=== PATIENT | male | born 1965 | race Caucasian/White ===

== ENCOUNTER → 2020-08-12 07:33 | Outpatient (CLI) | payer OTHER, SELFPAY ==
[2020-08-12] MEDS: COVID-19 VACC, Ad26(JANSSEN)/PF 0.5 ML IM (07:42)
== END ==
PROVIDERS: Visit Provider Internal Medicine
DX: Z23 Encounter for immunization (principal)
CPT/HCPCS: 0031A; 91303

== ENCOUNTER → 2020-12-15 14:21 | Outpatient (CLI) | payer OTHER, SELFPAY ==
--- NOTE | 2020-12-15 14:25 | DI.RAD.S_ITS ---
PROCEDURE: XR KNEE RT 3V INDICATIONS: right knee pain, worsening, chronic overuse at work TECHNIQUE: 3 views of the knee were acquired. COMPARISON: Knee radiographs 09/23/2014. FINDINGS: Bones: No fractures or dislocations. No suspicious bony lesions. Soft tissues: No joint effusion. No suspicious soft tissue calcifications. IMPRESSION: No acute osseous abnormality. Dictated by: Uriel Chase M.D. on 12/15/2020 at 14:48 Approved by: Uriel Chase M.D. on 12/15/2020 at 14:48
== END ==
PROVIDERS: Referring Provider Student in an Organized Health Care Education/Training Program; Visit Provider Student in an Organized Health Care Education/Training Program
DX: M25.561 Pain in right knee (principal); Y99.0 Civilian activity done for income or pay
CPT/HCPCS: 73562

== ENCOUNTER → 2022-03-09 10:26 | Outpatient (CLI) | payer OTHER, SELFPAY ==
[2022-03-09 11:54] LABS: Add Manual Diff / Slide Review NO; Basophils Absolute Auto 0 /uL (0-100); Basophils Percent Auto 0.2 % (0-2); Eosinophils Absolute Auto 100 /uL (0-450); Eosinophils Percent Auto 0.9 % (2-4); Hemoglobin 14.2 g/dL (13.5-17.5); Lymphocytes Absolute Auto 1900 /uL (1100-4500); Lymphocytes Percent Auto 18.7 % (25-40); Mean Corpuscular HGB Conc 33.8 % (30-36); Mean Corpuscular Hemoglobin 28.8 PG (26-34); Mean Corpuscular Volume 85.2 fL (80-100); Monocytes Absolute Auto 600 /uL (0-900); Monocytes Percent Auto 6.4 % (3-14); Neutrophils Absolute Auto 7300 /uL (1500-7000); Neutrophils Percent Auto 73.8 % (50-75); Platelet Count 273 X10^3/uL (150-400); Red Blood Cell Count 4.92 X10^6/uL (4.5-5.9); Red Cell Distribution Width 13.8 % (11.6-14.8)
[2022-03-09 12:12] LABS: Alanine Aminotransferase 16 IU/L (<50); Albumin 4.2 g/dL (3.5-5.0); Albumin Globulin Ratio 1.2 (1.0-2.8); Alkaline Phosphatase 79 U/L (38-126); Aspartate Aminotransferase 21 IU/L (17-59); BUN Creatinine Ratio 25.4 (6-22); Bilirubin Total 0.4 mg/dL (0.2-1.3); Blood Urea Nitrogen 18 mg/dL (9-20); Calcium 9.3 mg/dL (8.4-10.2); Carbon Dioxide 24 mmol/L (22-32); Chloride 102 mmol/L (98-107); Cholesterol 194 mg/dL (140-199); Estimated Glomerular Filt Rate > 60 mL/min (>60); Globulin 3.6 g/dL (1.7-4.1); Glucose 114 mg/dL (70-100); HDL Cholesterol 41 mg/dL (40-60); HEMOLYSIS < 15 (0-50); LDL Cholesterol Calculated 117 mg/dL (<100); Potassium 4.1 mmol/L (3.4-5.1); Sodium 139 mmol/L (137-145); Total Protein 7.8 g/dL (6.3-8.2); Triglycerides 178 mg/dL (35-150)
[2022-03-09 12:37] LABS: Prostate Specific Antigen 2.76 ng/mL (0.10-4.00)
== END ==
PROVIDERS: PCP Family Medicine; Referring Provider Family Medicine; Visit Provider Family Medicine
DX: Z00.00 Encounter for general adult medical examination without abnormal findings (principal)
CPT/HCPCS: 36415; 80053; 80061; 84153; 85025

== ENCOUNTER → 2023-07-11 09:23 | Outpatient (CLI) | payer OTHER, SELFPAY ==
--- NOTE | 2023-07-11 09:25 | DI.RAD.S_ITS ---
PROCEDURE: XR SHOULDER RT MIN 2V INDICATIONS: eval shoulder TECHNIQUE: 3 views of the shoulder were acquired. COMPARISON: None. FINDINGS: Bones: No fractures or dislocations. No suspicious bony lesions. Visualized ribs appear intact. Soft tissues: No suspicious soft tissue calcifications. IMPRESSION: No acute bony abnormality. Approved by: Kvng Walden M.D. on 07/11/2023 at 18:56
== END ==
LOC: RAD 09:24
PROVIDERS: PCP Family Medicine; Referring Provider Family Medicine; Visit Provider Family Medicine
DX: S46.911A Strain of unspecified muscle, fascia and tendon at shoulder and upper arm level, right arm, initial encounter (principal); X58.XXXA Exposure to other specified factors, initial encounter
CPT/HCPCS: 73030

== ENCOUNTER 2023-12-27 08:15 | Outpatient (RCR) | payer OTHER, SELFPAY ==
--- NOTE | 2023-09-10 18:39 | PT.OIE ---
Current Diagnoses Impingement syndrome of right shoulder (09/10/23) Strain of unspecified muscle, fascia and tendon at shoulder and upper arm level, right arm, subsequent encounter (09/10/23) Civilian activity done for income or pay (09/10/23) Past Medical History (Last Reviewed 07/11/23 @ 09:28 by Matt Patel DO) Adhesive capsulitis Hyperglycemia Strain of tendon of right rotator cuff Well adult exam Visit Care Team Role Provider Type Matt Patel DO Attending Provider Physician Family Provider Primary Care Provider Referring Provider Specialty: Family Practice Address: [address] [place] [address], [facility] Email: [email or web address] [facility] Initial Evaluation PT-OP-A Visit Information Start: 09/05/23 17:27 Freq: Status: Active Protocol: Document 09/10/23 07:35 LRN (Rec: 09/10/23 08:18 LRN [id number]) Out-Patient Physical Therapy Visit Information Visit Information Visit Type Initial Evaluation Visit Start Time 07:35 Visit Stop Time 08:14 Visit Number 1 Evaluation Information Evaluation Date 09/10/23 Precautions Precautions Per intake form: hearing problems, arthritis, neck & back pain. PT-OP-B Current Condition Start: 09/05/23 17:27 Freq: Status: Active Protocol: Document 09/10/23 07:35 LRN (Rec: 09/10/23 08:18 LRN [id number]) Current Condition History of Current Condition Onset Date 2022 Current Complaints R shdr pain with reaching forward History of Current Condition Pt reports he was pulling wire overhead and the next morning couldn't lift his arm because of pain at the posterior R shoulder joint and if leaning on the elbow in his car, he has pain in the same location. States he is getting a little better because he can lift his arm, but feels a strain at ~30 deg's AB of the arm, and feels something is catching when he reaches to turn his radio on in his car. He denies pain with lifting. Pt reports no prior history of pain. 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 Pt is R handed. Every once in awhile he has pain with sleeping while on the R shoulder. His pain is relieved by turning to the other side and resting his arm on a pillow. Prior Treatments and Tests Pt reports X-rays taken were negative for bony changes. Future Testing and Treatments Planned None Treatment Goals Patient/Caregiver Goals Pt goal's: - learning self care to help make shoulder stronger - be able to work at prior level of function (Full painfree ROM for: throwing baseball and golfing). 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 PT-OP-C Subjective Start: 09/05/23 17:27 Freq: Status: Active Protocol: Document 09/10/23 07:35 LRN (Rec: 09/10/23 08:18 LRN [id number]) Patient Questionnaires Quick Dash- Upper Extremity Quick Dash UE Score 4.54 Quick Dash UE Impairment 1 to 19% Impaired (Score 1-19) OP-PT Pain Assessment Pain Assessment Grid Paper Pain Assessment Grid Completed Yes Location R posterior shoulder Pain Location Details R Teres Minor/Major Intensity 2 Scale Used Numeric (0 - 10) Description Pressure Frequency Intermittent Pain Aggravating Factors Changing Position Other Pain Aggravating Factors Leaning into arm, sleeping on R shoulder PT-OP-E Functional Tests Start: 09/05/23 17:27 Freq: Status: Active Protocol: Document 09/10/23 07:35 LRN (Rec: 09/10/23 08:18 LRN [id number]) Functional Tests Apley's Scratch Test Action 1- Left Below spine of scapula Action 1- Right On spine of scapula Action 2- Left T2 Action 2- Right T2 Action 3- Left T10 Action 3- Right T12 PT-OP-H Neuro Start: 09/05/23 17:27 Freq: Status: Active Protocol: Document 09/10/23 07:35 LRN (Rec: 09/10/23 08:18 LRN [id number]) Sensation Evaluation Gross Sensation Gross Sensation WNL PT-OP-J Posture/Palpation/Skin Start: 09/05/23 17:27 Freq: Status: Active Protocol: Document 09/10/23 07:35 LRN (Rec: 09/10/23 08:18 LRN [id number]) Posture Evaluation Position Standing Shoulder Posture (R) Rounded,(R) Forward,(R) Elevated Scapula Posture (R) Depressed Arm Posture (L) Internally Rotated,(R) Internally Rotated Knee Posture (L) Genu Varus,(R) Genu Varus Comments Posture Comments Neck shifted left, increased lordosis, protruding abdomen, atrophy of R dominant shoulder ms (UT, Supr, infra, Teres Major & Minor, Deltoids) Palpation Assessment Location R shoulder Palpation Location Tender Minor > Teres jason Palpation Findings Tenderness PT-OP-K Range of Motion Start: 09/05/23 17:27 Freq: Status: Active Protocol: Document 09/10/23 07:35 LRN (Rec: 09/10/23 08:18 LRN [id number]) Shoulder Goniometric Range of Motion Shoulder Right Passive External Rotation at 0 degrees Abduction 85 Internal Rotation 90 Left Passive Testing Position Supine External Rotation at 90 degrees 90 Abduction Internal Rotation 90 Right Active Testing Position Sitting Flexion 137 Extension 45 Abduction 148 External Rotation at 0 degrees Abduction 57 Internal Rotation Behind Back (text) T12 Comments Painfree ROM measured Left Active Testing Position Sitting Flexion 160 Extension 45 Abduction 158 External Rotation at 0 degrees Abduction 62 Internal Rotation Behind Back (text) T10 Comments Painfree ROM measured PT-OP-L Special Tests Start: 09/05/23 17:27 Freq: Status: Active Protocol: Document 09/10/23 07:35 LRN (Rec: 09/10/23 08:18 LRN [id number]) Special Tests Cervical Spine Special Tests Foraminal Compression Test Results - Traction Test Results - Shoulder Special Tests Munroe Ellis Impingement Test Results + right Elevation Impingement Test Results + right PT-OP-M Strength Start: 09/05/23 17:27 Freq: Status: Active Protocol: Document 09/10/23 07:35 LRN (Rec: 09/10/23 08:18 LRN [id number]) Shoulder Strength Shoulder Manual Muscle Testing Right Abduction (C5) 3 Fair External Rotation 4+ Good+ Internal Rotation 4+ Good+ Comments Except as indicated above strength is 5/5 in major muscle groups. Left Comments Strength is 5/5 in major muscle groups. PT-OP-Q Treatments Start: 09/05/23 17:27 Freq: Status: Active Protocol: Document 09/10/23 07:35 LRN (Rec: 09/10/23 08:18 LRN [id number]) Self-Care/Home Management Treatment Education Other Education Discussed results of evaluation, goals, and plan of care (POC) with pt, discussed attendance/cx/dns policy; pt agreeable to goals, attendance /cx/dns policy and POC. Activities Self-Care/Home Management Activities I/S pt in self care HEP of: Scap retract/depression & TB shdr ER/IR. Issued Lev 2 TB. PT-OP-T Assessment and Plan Start: 09/05/23 17:27 Freq: Status: Active Protocol: Document 09/10/23 07:35 LRN (Rec: 09/10/23 08:18 LRN [id number]) Physical Therapy Assessment Rehab Potential Rehabilitation Potential Good Evaluation Complexity Number of Personal Factors/Comorbidities 1-2 Number of Body Systems Impaired 4 or More Clinical Presentation at Evaluation Evolving Impairments Impairments Activity Tolerance,Pain, Posture,ROM,Strength Goals Three Impairment Decreased R shoulder strength Impairment R shoulder strength is 5/5 except AB 3/5, ER & IR 4+/5 Half-Way Goal (LTG) Improve R shoulder strength with pt able to work at his prior level of function without pain. LTG Duration 10 wks-11/22/23 Two Impairment Decreased R shoulder AROM due to pain. Impairment Sitting (in deg's): Flex 137 R , 160 R; AB 148 R, 158 L; ER ( 0 deg's AB) 57 R, 62 L; IR T12 R, T10 L. Short Term Goal (STG) Improve R scapulohumeral rhythm with pt able to perform R shoulder AROM without pain. STG Duration 4 wks-10/11/23 Half-Way Goal (LTG) Improve R shoulder ROM with pt able to throw a baseball and golf with minimal to no discomfort. LTG Duration 10 wks-11/22/23 One Impairment Pt lacks appropriate self care HEP Short Term Goal (STG) Pt will be educated in self care pain management (RICE) technique and positioning in partial sidelie for nighttime pain relief. STG Duration 4 wks-10/11/23 Half-Way Goal (LTG) Pt will be independent in a self care HEP of R shoulder/ scapula strengthening exercises and neck/R shoulder ROM ex's. LTG Duration 10 wks-11/22/23 Assessment Summary Assessment Pt is a 58 yo male who presents with signs of R shoulder impingement with rotator cuff and scapular dysfunction of possibly Teres minor, Teres major, or Infraspinatus muscle and postural changes. He has an audible click with passive R shoulder ROM that appears to be joint related, although not certain where in the joint it is coming from. The pt is limited by pain with R shoulder PROM & AROM and weightbearing through the arm, but he denies pain with heavy use of the shoulder. The patient appears to have a high pain tolerance with limited response when the arm is placed in a positioin of pain. The pt may have internal derangement of the R GHJ that further imaging would be appropriate if he is not able to improve to his prior level of function in 6-8 wks. The pt will benefit from skilled physical therapy to work towards achieving the above stated goals. Physical Therapy Plan Frequency and Duration Frequency of Treatment 2x/Week Duration of treatment (weeks) 10 Plan of Care Start Date 09/10/23 Plan of Care End Date 11/22/23 Therapeutic Interventions Therapeutic Interventions Home Exercise Program,Joint Mobilizations,Manual Therapy, Neuromuscular Re-education, Self-Care/Home Management,Soft Tissue Mobilization,Taping, Therapeutic Activities, Therapeutic Exercises Modalities Cold Pack/Ice Massage,Electric Stimulation,Hot Packs, Ultrasound Next Visit Focus/Plan Next Note Type Treatment Note Next Visit Plan Next: Clunk test. Assess neck mobility and issue ROM as appropriate. Try K-taping for R impingement syndrome if not allergic to latex. Start scapular stabilization and RC strengthening f/b R shoulder ROM ex's along with core stabilization. Pt education in best nighttime positioning in partial sidelye. Pt education in self care pain management (VALE) technique. HEP.
--- NOTE | 2023-09-10 18:39 | PT.OPPOC ---
Physical, Occupational & Speech Therapy At [facility] Current Diagnoses Impingement syndrome of right shoulder (09/10/23) Strain of unspecified muscle, fascia and tendon at shoulder and upper arm level, right arm, subsequent encounter (09/10/23) Civilian activity done for income or pay (09/10/23) Visit Care Team Role Provider Type Matt Patel DO Attending Provider Physician Family Provider Primary Care Provider Referring Provider Specialty: [facility] Practice Address: [address] [place] [address], [facility] Email: [email or web address] PT-OP-T Assessment and Plan Start: 09/05/23 17:27 Freq: Status: Active Protocol: Document 09/10/23 07:35 LRN (Rec: 09/10/23 08:18 LRN [id number]) Physical Therapy Assessment Rehab Potential Rehabilitation Potential Good Evaluation Complexity Number of Personal Factors/Comorbidities 1-2 Number of Body Systems Impaired 4 or More Clinical Presentation at Evaluation Evolving Impairments Impairments Activity Tolerance,Pain, Posture,ROM,Strength Goals Three Impairment Decreased R shoulder strength Impairment R shoulder strength is 5/5 except AB 3/5, ER & IR 4+/5 Pasteurizer Goal (LTG) Improve R shoulder strength with pt able to work at his prior level of function without pain. LTG Duration 10 wks-11/22/23 Two Impairment Decreased R shoulder AROM due to pain. Impairment Sitting (in deg's): Flex 137 R , 160 R; AB 148 R, 158 L; ER ( 0 deg's AB) 57 R, 62 L; IR T12 R, T10 L. Short Term Goal (STG) Improve R scapulohumeral rhythm with pt able to perform R shoulder AROM without pain. STG Duration 4 wks-10/11/23 Shelter Goal (LTG) Improve R shoulder ROM with pt able to throw a baseball and golf with minimal to no discomfort. LTG Duration 10 wks-11/22/23 One Impairment Pt lacks appropriate self care HEP Short Term Goal (STG) Pt will be educated in self care pain management (RICE) technique and positioning in partial sidelie for nighttime pain relief. STG Duration 4 wks-10/11/23 Shelter Goal (LTG) Pt will be independent in a self care HEP of R shoulder/ scapula strengthening exercises and neck/R shoulder ROM ex's. LTG Duration 10 wks-11/22/23 Assessment Summary Assessment Pt is a 58 yo male who presents with signs of R shoulder impingement with rotator cuff and scapular dysfunction of possibly Teres minor, Teres major, or Infraspinatus muscle and postural changes. He has an audible click with passive R shoulder ROM that appears to be joint related, although not certain where in the joint it is coming from. The pt is limited by pain with R shoulder PROM & AROM and weightbearing through the arm, but he denies pain with heavy use of the shoulder. The patient appears to have a high pain tolerance with limited response when the arm is placed in a positioin of pain. The pt may have internal derangement of the R GHJ that further imaging would be appropriate if he is not able to improve to his prior level of function in 6-8 wks. The pt will benefit from skilled physical therapy to work towards achieving the above stated goals. Physical Therapy Plan Frequency and Duration Frequency of Treatment 2x/Week Duration of treatment (weeks) 10 Plan of Care Start Date 09/10/23 Plan of Care End Date 11/22/23 Therapeutic Interventions Therapeutic Interventions Home Exercise Program,Joint Mobilizations,Manual Therapy, Neuromuscular Re-education, Self-Care/Home Management,Soft Tissue Mobilization,Taping, Therapeutic Activities, Therapeutic Exercises Modalities Cold Pack/Ice Massage,Electric Stimulation,Hot Packs, Ultrasound Next Visit Focus/Plan Next Note Type Treatment Note Next Visit Plan Next: Clunk test. Assess neck mobility and issue ROM as appropriate. Try K-taping for R impingement syndrome if not allergic to latex. Start scapular stabilization and RC strengthening f/b R shoulder ROM ex's along with core stabilization. Pt education in best nighttime positioning in partial sidelye. Pt education in self care pain management (RICE) technique. HEP. Plan of Care Dates Plan of Care Start Date 09/10/23 Plan of Care End Date 11/22/23 Electronically Signed by: Socorro Chisholm, PT 09/10/23 [id number] If you are in agreement with this Plan of Care, please return a signed and dated copy. I have reviewed this Plan of Care and certify that the skilled therapy services above are required to meet the patient?s needs. Physician Signature Date Printed Name and Credentials Clinical Instructor Signature Printed Name and Credentials
--- NOTE | 2023-09-12 09:11 | PT.OTN ---
Current Diagnoses Impingement syndrome of right shoulder (09/12/23) Strain of unspecified muscle, fascia and tendon at shoulder and upper arm level, right arm, subsequent encounter (09/12/23) Civilian activity done for income or pay (09/12/23) Physical Therapy Treatment Note PT-OP-A Visit Information Start: 09/05/23 17:27 Freq: Status: Active Protocol: Document 09/12/23 08:19 LRN (Rec: 09/12/23 09:10 LRN [id number]) Out-Patient Physical Therapy Visit Information Visit Information Visit Type Treatment Note Visit Start Time 08:19 Visit Stop Time 09:01 Visit Number 2 Evaluation Information Evaluation Date 09/10/23 Precautions Precautions Per intake form: hearing problems, arthritis, neck & back pain. PT-OP-B Current Condition Start: 09/05/23 17:27 Freq: Status: Active Protocol: Document 09/10/23 07:35 LRN (Rec: 09/10/23 08:18 LRN [id number]) Current Condition History of Current Condition Onset Date 2022 Current Complaints R shdr pain with reaching forward History of Current Condition Pt reports he was pulling wire overhead and the next morning couldn't lift his arm because of pain at the posterior R shoulder joint and if leaning on the elbow in his car, he has pain in the same location. States he is getting a little better because he can lift his arm, but feels a strain at ~30 deg's AB of the arm, and feels something is catching when he reaches to turn his radio on in his car. He denies pain with lifting. Pt reports no prior history of pain. 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 Pt is R handed. Every once in awhile he has pain with sleeping while on the R shoulder. His pain is relieved by turning to the other side and resting his arm on a pillow. Prior Treatments and Tests Pt reports X-rays taken were negative for bony changes. Future Testing and Treatments Planned None Treatment Goals Patient/Caregiver Goals Pt goal's: - learning self care to help make shoulder stronger - be able to work at prior level of function (Full painfree ROM for: throwing baseball and golfing). 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 PT-OP-C Subjective Start: 09/05/23 17:27 Freq: Status: Active Protocol: Document 09/12/23 08:19 LRN (Rec: 09/12/23 09:10 LRN [id number]) OP-PT Subjective Patient Comments Patient Comments Doing arms ex's. States today shoulder is not clicking ; has no pain when it clicks. PT-OP-E Functional Tests Start: 09/05/23 17:27 Freq: Status: Active Protocol: Document 09/10/23 07:35 LRN (Rec: 09/10/23 08:18 LRN [id number]) Functional Tests Apley's Scratch Test Action 1- Left Below spine of scapula Action 1- Right On spine of scapula Action 2- Left T2 Action 2- Right T2 Action 3- Left T10 Action 3- Right T12 PT-OP-H Neuro Start: 09/05/23 17:27 Freq: Status: Active Protocol: Document 09/10/23 07:35 LRN (Rec: 09/10/23 08:18 LRN [id number]) Sensation Evaluation Gross Sensation Gross Sensation WNL PT-OP-J Posture/Palpation/Skin Start: 09/05/23 17:27 Freq: Status: Active Protocol: Document 09/10/23 07:35 LRN (Rec: 09/10/23 08:18 LRN [id number]) Posture Evaluation Position Standing Shoulder Posture (R) Rounded,(R) Forward,(R) Elevated Scapula Posture (R) Depressed Arm Posture (L) Internally Rotated,(R) Internally Rotated Knee Posture (L) Genu Varus,(R) Genu Varus Comments Posture Comments Neck shifted left, increased lordosis, protruding abdomen, atrophy of R dominant shoulder ms (UT, Supr, infra, Teres Major & Minor, Deltoids) Palpation Assessment Location R shoulder Palpation Location Tender Minor > Teres jason Palpation Findings Tenderness PT-OP-K Range of Motion Start: 09/05/23 17:27 Freq: Status: Active Protocol: Document 09/12/23 08:19 LRN (Rec: 09/12/23 09:10 LRN [id number]) Cervical Spine Range of Motion Cervical Spine Active Degrees Testing Position Sitting Rotation Left 40 Rotation Right 40 Lateral Flexion Left 22 Lateral Flexion Right 22 PT-OP-L Special Tests Start: 09/05/23 17:27 Freq: Status: Active Protocol: Document 09/12/23 08:19 LRN (Rec: 09/12/23 09:10 LRN [id number]) Special Tests Shoulder Special Tests [place] Test Test Results ? positive Comments Click felt once, then was not able to reproduce. PT-OP-M Strength Start: 09/05/23 17:27 Freq: Status: Active Protocol: Document 09/10/23 07:35 LRN (Rec: 09/10/23 08:18 LRN [id number]) Shoulder Strength Shoulder Manual Muscle Testing Right Abduction (C5) 3 Fair External Rotation 4+ Good+ Internal Rotation 4+ Good+ Comments Except as indicated above strength is 5/5 in major muscle groups. Left Comments Strength is 5/5 in major muscle groups. PT-OP-Q Treatments Start: 09/05/23 17:27 Freq: Status: Active Protocol: Document 09/12/23 08:19 LRN (Rec: 09/12/23 09:10 LRN [id number]) Therapeutic Exercises Supine Exercises R shoulder stretch Supine Exercise Name Flex, AB stretch Side right Reps/Minutes 3' Comments [place] Test done. C/S stretching Supine Exercise Name C. SB & Rot Side bilateral Reps/Minutes 8' Sitting Exercises Shoulder ER Sitting Exercise Name ER strengthening, Setting of scapula to start Side bilateral Equipment Used Lev 2 TB Reps/Minutes 10 x 3 rest btn sets Comments Cued no pain with ex, either rest or lighten strain of TB Neck AROM Sitting Exercise Name Rot & SB stretch Side bilateral Reps/Minutes 3' Standing Exercises Scap retract/depression Standing Exercise Name Training for scap depression w /retraction Side bilateral Equipment Used Mirror Reps/Minutes 4' Comments Pt cued to watch shoulder drop and retract Shoulder stretches Standing Exercise Name Flex on wall, IR w/belt Side right Reps/Minutes 10 SH x 10 each Comments Cued to not ex into pain. Row Standing Exercise Name Extra scap retract at end Side bilateral Reps/Minutes 10x 3 Comments Much phy & v cuing needed at scapula to get end-range retraction. Shoulder IR strengthening Standing Exercise Name Setting of scapula to start Side right Equipment Used Lev 2TB Reps/Minutes 10x 3 rest btn sets Comments Cued no pain with ex, either rest or lighten strain of TB Self-Care/Home Management Treatment Education Patient Education Home Exercise Program,Pain Management Other Education Pt educated in self care pain management (RICE) technique. Activities Self-Care/Home Management Activities Handout issued: C/S AROM stretching, RICE pain management, PT-OP-T Assessment and Plan Start: 09/05/23 17:27 Freq: Status: Active Protocol: Document 09/12/23 08:19 LRN (Rec: 09/12/23 09:10 LRN [id number]) Physical Therapy Assessment Goals Three Impairment Decreased R shoulder strength Impairment R shoulder strength is 5/5 except AB 3/5, ER & IR 4+/5 [facility] Goal (LTG) Improve R shoulder strength with pt able to work at his prior level of function without pain. LTG Duration 10 wks-11/22/23 Two Impairment Decreased R shoulder AROM due to pain. Impairment Sitting (in deg's): Flex 137 R , 160 R; AB 148 R, 158 L; ER ( 0 deg's AB) 57 R, 62 L; IR T12 R, T10 L. Short Term Goal (STG) Improve R scapulohumeral rhythm with pt able to perform R shoulder AROM without pain. STG Duration 4 wks-10/11/23 High School Principal Goal (LTG) Improve R shoulder ROM with pt able to throw a baseball and golf with minimal to no discomfort. LTG Duration 10 wks-11/22/23 One Impairment Pt lacks appropriate self care HEP Short Term Goal (STG) Pt will be educated in self care pain management (RICE) technique and positioning in partial sidelie for nighttime pain relief. 09/12/23: Pt educated in RICE technique. STG Duration 4 wks-10/11/23 progressing 09/08/23 High School Principal Goal (LTG) Pt will be independent in a self care HEP of R shoulder/ scapula strengthening exercises and neck/R shoulder ROM ex's. LTG Duration 10 wks-11/22/23 Assessment Summary Assessment Pt is a 58 yo male who presents with signs of R shoulder impingement with rotator cuff and scapular dysfunction of possibly Teres minor, Teres major, or Infraspinatus muscle and postural changes. Today he demonstrates tightness of the neck muscles; therefore pt has difficulty with scapular depression/retraction. No shoulder pain with ROM ex's but has burning pain with R shoulder ER/IR strengthening, possibly due to overworking shdr ms; therefore pt cued to not ex into pain. Physical Therapy Plan Frequency and Duration Frequency of Treatment 2x/Week Duration of treatment (weeks) 10 Plan of Care Start Date 09/10/23 Plan of Care End Date 11/22/23 Next Visit Focus/Plan Next Note Type Treatment Note Next Visit Plan Next: Check Belly Press. Review R shoulder ROM and strengthening for ability to do w/o pain. Try K-taping for R impingement syndrome if not allergic to latex. Scapular stabilization and RC strengthening f/b R shoulder ROM ex's along with core stabilization. Pt education in best nighttime positioning in partial sidelye. HEP.
--- NOTE | 2023-09-18 08:10 | PT.OTN ---
Current Diagnoses Impingement syndrome of right shoulder (09/18/23) Strain of unspecified muscle, fascia and tendon at shoulder and upper arm level, right arm, subsequent encounter (09/18/23) Civilian activity done for income or pay (09/18/23) Physical Therapy Treatment Note PT-OP-A Visit Information Start: 09/05/23 17:27 Freq: Status: Active Protocol: Document 09/18/23 07:29 SP (Rec: 09/18/23 08:21 SP [id number]) Out-Patient Physical Therapy Visit Information Visit Information Visit Type Treatment Note Visit Start Time 07:30 Visit Stop Time 08:10 Visit Number 3 Number of IT TRAINER Visits 1 Evaluation Information Evaluation Date 09/10/23 Precautions Precautions Per intake form: hearing problems, arthritis, neck & back pain. PT-OP-B Current Condition Start: 09/05/23 17:27 Freq: Status: Active Protocol: Document 09/10/23 07:35 LRN (Rec: 09/10/23 08:18 LRN [id number]) Current Condition History of Current Condition Onset Date 2022 Current Complaints R shdr pain with reaching forward History of Current Condition Pt reports he was pulling wire overhead and the next morning couldn't lift his arm because of pain at the posterior R shoulder joint and if leaning on the elbow in his car, he has pain in the same location. States he is getting a little better because he can lift his arm, but feels a strain at ~30 deg's AB of the arm, and feels something is catching when he reaches to turn his radio on in his car. He denies pain with lifting. Pt reports no prior history of pain. 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 Pt is R handed. Every once in awhile he has pain with sleeping while on the R shoulder. His pain is relieved by turning to the other side and resting his arm on a pillow. Prior Treatments and Tests Pt reports X-rays taken were negative for bony changes. Future Testing and Treatments Planned None Treatment Goals Patient/Caregiver Goals Pt goal's: - learning self care to help make shoulder stronger - be able to work at prior level of function (Full painfree ROM for: throwing baseball and golfing). 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 PT-OP-C Subjective Start: 09/05/23 17:27 Freq: Status: Active Protocol: Document 09/18/23 07:29 SP (Rec: 09/18/23 08:21 SP [id number]) OP-PT Subjective Patient Comments Patient Comments Pt reports sleeping more through the night not waking up as much but found more sore and discomfort and distal RTC with new exercises. R side sleeper and finds has to position R UE abd /c ER to be comfortable. PT-OP-E Functional Tests Start: 09/05/23 17:27 Freq: Status: Active Protocol: Document 09/10/23 07:35 LRN (Rec: 09/10/23 08:18 LRN [id number]) Functional Tests Apley's Scratch Test Action 1- Left Below spine of scapula Action 1- Right On spine of scapula Action 2- Left T2 Action 2- Right T2 Action 3- Left T10 Action 3- Right T12 PT-OP-H Neuro Start: 09/05/23 17:27 Freq: Status: Active Protocol: Document 09/10/23 07:35 LRN (Rec: 09/10/23 08:18 LRN [id number]) Sensation Evaluation Gross Sensation Gross Sensation WNL PT-OP-J Posture/Palpation/Skin Start: 09/05/23 17:27 Freq: Status: Active Protocol: Document 09/10/23 07:35 LRN (Rec: 09/10/23 08:18 LRN [id number]) Posture Evaluation Position Standing Shoulder Posture (R) Rounded,(R) Forward,(R) Elevated Scapula Posture (R) Depressed Arm Posture (L) Internally Rotated,(R) Internally Rotated Knee Posture (L) Genu Varus,(R) Genu Varus Comments Posture Comments Neck shifted left, increased lordosis, protruding abdomen, atrophy of R dominant shoulder ms (UT, Supr, infra, Teres Major & Minor, Deltoids) Palpation Assessment Location R shoulder Palpation Location Tender Minor > Teres ronan Palpation Findings Tenderness PT-OP-K Range of Motion Start: 09/05/23 17:27 Freq: Status: Active Protocol: Document 09/12/23 08:19 LRN (Rec: 09/12/23 09:10 LRN [id number]) Cervical Spine Range of Motion Cervical Spine Active Degrees Testing Position Sitting Rotation Left 40 Rotation Right 40 Lateral Flexion Left 22 Lateral Flexion Right 22 PT-OP-L Special Tests Start: 09/05/23 17:27 Freq: Status: Active Protocol: Document 09/12/23 08:19 LRN (Rec: 09/12/23 09:10 LRN [id number]) Special Tests Shoulder Special Tests [place] Test Test Results ? positive Comments Click felt once, then was not able to reproduce. PT-OP-M Strength Start: 09/05/23 17:27 Freq: Status: Active Protocol: Document 09/10/23 07:35 LRN (Rec: 09/10/23 08:18 LRN [id number]) Shoulder Strength Shoulder Manual Muscle Testing Right Abduction (C5) 3 Fair External Rotation 4+ Good+ Internal Rotation 4+ Good+ Comments Except as indicated above strength is 5/5 in major muscle groups. Left Comments Strength is 5/5 in major muscle groups. PT-OP-Q Treatments Start: 09/05/23 17:27 Freq: Status: Active Protocol: Document 09/18/23 07:29 SP (Rec: 09/18/23 08:21 SP [id number]) Therapeutic Exercises Sidelying Exercises Shld ER Side right Equipment Used towel under arm Reps/Minutes 10 reps Comments tactile cues scap stab maintain with ER pnfree range. open book Sidelying Exercise Name Trialed Side bilateral Reps/Minutes 4 reps AROM, 1 rep hold 3 breaths sleeper stretch Side right Reps/Minutes 15 SH x3 reps Comments good gentle post shld stretch Sitting Exercises Shoulder ER Sitting Exercise Name ER strengthening, Setting of scapula to start Side bilateral Equipment Used Lev 2 TB Reps/Minutes 10 x 3 rest btn sets Comments Cued no pain with ex, either rest or lighten strain of TB Standing Exercises shld ext Standing Exercise Name added to HEP Side bilateral Resistance TB #3 [place] green Reps/Minutes x10 Comments scap retraction/depression into ext at side Row Standing Exercise Name Extra scap retract at end Side bilateral Reps/Minutes 10x 3 Comments Much phy & v cuing needed at scapula to get end-range retraction. Other Exercises self STMs Other Exercise Name R post GH jt: teres, infrasp Manual Therapy Treatment Soft Tissue Mobilization R shld Body Location pec Ronan, Coracobrac, prox bicep, distal infrasp, Distal Teres Mobilization Type Strumming,Sustained Pressure, Other Intensity/Depth Moderate Comments side and supine- strumming and sustained pressure with PROM humeral IR/ ER, punching motion, ed self STMs use racquetball on wall Joint Mobilizations R GH jt Direction inferior, posterior R scapulothoracic Direction retraction/depression/sup/ inferior Grade II Body Position Sidelying Comments manual, AAROM, maintain /c shld ER AROM Taping Ktaping Body Location R prox humeral head A>P, distal deloid> sup angle scap, distal deltoid rhom Treatment Focus scap retraction/depression stab/posterior proxhumeral head Type of Tape Kinesio Tape Skin Inspection intact normal color/texture Comments ed able wear 4 hrs up to 4 day , adverse affects: redness, itching, tingling remove gently. Verbalized understanding. GOod feedback feels scap positioning supportive. PT-OP-T Assessment and Plan Start: 09/05/23 17:27 Freq: Status: Active Protocol: Document 09/18/23 07:29 SP (Rec: 09/18/23 08:21 SP [id number]) Physical Therapy Assessment Goals Three Impairment Decreased R shoulder strength Impairment R shoulder strength is 5/5 except AB 3/5, ER & IR 4+/5 Usp Goal (LTG) Improve R shoulder strength with pt able to work at his prior level of function without pain. LTG Duration 10 wks-11/22/23 Two Impairment Decreased R shoulder AROM due to pain. Impairment Sitting (in deg's): Flex 137 R , 160 R; AB 148 R, 158 L; ER ( 0 deg's AB) 57 R, 62 L; IR T12 R, T10 L. Short Term Goal (STG) Improve R scapulohumeral rhythm with pt able to perform R shoulder AROM without pain. STG Duration 4 wks-10/11/23 Assembler Wire Mesh Gate Goal (LTG) Improve R shoulder ROM with pt able to throw a baseball and golf with minimal to no discomfort. LTG Duration 10 wks-11/22/23 One Impairment Pt lacks appropriate self care HEP Short Term Goal (STG) Pt will be educated in self care pain management (RICE) technique and positioning in partial sidelie for nighttime pain relief. 09/12/23: Pt educated in RICE technique. STG Duration 4 wks-10/11/23 progressing 09/08/23 Usp Goal (LTG) Pt will be independent in a self care HEP of R shoulder/ scapula strengthening exercises and neck/R shoulder ROM ex's. LTG Duration 10 wks-11/22/23 Assessment Summary Assessment Pt responded well to manual STMs wtih good carryover self application use ball wall. Tactile fac humeral inferior/ posterior glide and better understanding scapulothoracic stab during ther ex review today. Good focused post shld sleeper stretch finds helpful to reduction tightness. Physical Therapy Plan Frequency and Duration Frequency of Treatment 2x/Week Duration of treatment (weeks) 10 Plan of Care Start Date 09/10/23 Plan of Care End Date 11/22/23 Therapeutic Interventions Therapeutic Interventions Home Exercise Program,Joint Mobilizations,Manual Therapy, Neuromuscular Re-education, Self-Care/Home Management,Soft Tissue Mobilization,Taping, Therapeutic Activities, Therapeutic Exercises Modalities Cold Pack/Ice Massage,Electric Stimulation,Hot Packs, Ultrasound Next Visit Focus/Plan Next Note Type Treatment Note Next Visit Plan CHeck sleeper stretch, resisted shld ext, self STMs, response Ktaping. Next: Check Belly Press. Review R shoulder ROM and strengthening for ability to do w/o pain. Try K-taping for R impingement syndrome if not allergic to latex. Scapular stabilization and RC strengthening f/b R shoulder ROM ex's along with core stabilization. Pt education in best nighttime positioning in partial sidelye. HEP.
--- NOTE | 2023-09-20 10:02 | PT.OTN ---
Current Diagnoses Impingement syndrome of right shoulder (09/20/23) Strain of unspecified muscle, fascia and tendon at shoulder and upper arm level, right arm, subsequent encounter (09/20/23) Civilian activity done for income or pay (09/20/23) Physical Therapy Treatment Note PT-OP-A Visit Information Start: 09/05/23 17:27 Freq: Status: Active Protocol: Document 09/20/23 08:06 AB (Rec: 09/20/23 10:00 AB [id number]) Out-Patient Physical Therapy Visit Information Visit Information Visit Type Treatment Note Visit Note Medbridge code [id number] Visit Start Time 08:16 Visit Stop Time 09:01 Visit Number 4 Number of AVAYA ENGINEER Visits 2 Evaluation Information Evaluation Date 09/10/23 Precautions Precautions Per intake form: hearing problems, arthritis, neck & back pain. PT-OP-B Current Condition Start: 09/05/23 17:27 Freq: Status: Active Protocol: Document 09/10/23 07:35 LRN (Rec: 09/10/23 08:18 LRN [id number]) Current Condition History of Current Condition Onset Date 2022 Current Complaints R shdr pain with reaching forward History of Current Condition Pt reports he was pulling wire overhead and the next morning couldn't lift his arm because of pain at the posterior R shoulder joint and if leaning on the elbow in his car, he has pain in the same location. States he is getting a little better because he can lift his arm, but feels a strain at ~30 deg's AB of the arm, and feels something is catching when he reaches to turn his radio on in his car. He denies pain with lifting. Pt reports no prior history of pain. 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 Every once in awhile he has pain with sleeping while on the R shoulder. His pain is relieved by turning to the other side and resting his arm on a pillow. Prior Treatments and Tests Pt reports X-rays taken were negative for bony changes. Future Testing and Treatments Planned None Treatment Goals Patient/Caregiver Goals Pt goal's: - learning self care to help make shoulder stronger - be able to work at prior level of function (Full painfree ROM for: throwing baseball and golfing). 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 PT-OP-C Subjective Start: 09/05/23 17:27 Freq: Status: Active Protocol: Document 09/20/23 08:06 AB (Rec: 09/20/23 10:00 AB [id number]) OP-PT Subjective Patient Comments Patient Comments Patient reports he woke up this morning with some soreness, reports sleeping on right side. AROM right shoulder flexion 131 deg start of session, belly press patient comments not pain but can feel it sub deltoid area. Reports tape is in place no skin reactions. PT-OP-E Functional Tests Start: 09/05/23 17:27 Freq: Status: Active Protocol: Document 09/10/23 07:35 LRN (Rec: 09/10/23 08:18 LRN [id number]) Functional Tests Apley's Scratch Test Action 1- Left Below spine of scapula Action 1- Right On spine of scapula Action 2- Left T2 Action 2- Right T2 Action 3- Left T10 Action 3- Right T12 PT-OP-H Neuro Start: 09/05/23 17:27 Freq: Status: Active Protocol: Document 09/10/23 07:35 LRN (Rec: 09/10/23 08:18 LRN [id number]) Sensation Evaluation Gross Sensation Gross Sensation WNL PT-OP-J Posture/Palpation/Skin Start: 09/05/23 17:27 Freq: Status: Active Protocol: Document 09/10/23 07:35 LRN (Rec: 09/10/23 08:18 LRN [id number]) Posture Evaluation Position Standing Shoulder Posture (R) Rounded,(R) Forward,(R) Elevated Scapula Posture (R) Depressed Arm Posture (L) Internally Rotated,(R) Internally Rotated Knee Posture (L) Genu Varus,(R) Genu Varus Comments Posture Comments Neck shifted left, increased lordosis, protruding abdomen, atrophy of R dominant shoulder ms (UT, Supr, infra, Teres Major & Minor, Deltoids) Palpation Assessment Location R shoulder Palpation Location Tender Minor > Teres jason Palpation Findings Tenderness PT-OP-K Range of Motion Start: 09/05/23 17:27 Freq: Status: Active Protocol: Document 09/20/23 08:06 AB (Rec: 09/20/23 10:02 AB [id number]) Shoulder Goniometric Range of Motion Shoulder Right Active Shoulder ROM WFL No Testing Position Standing Flexion 135 Comments end of session PT-OP-L Special Tests Start: 09/05/23 17:27 Freq: Status: Active Protocol: Document 09/12/23 08:19 LRN (Rec: 09/12/23 09:10 LRN [id number]) Special Tests Shoulder Special Tests Hood Test Test Results ? positive Comments Click felt once, then was not able to reproduce. PT-OP-M Strength Start: 09/05/23 17:27 Freq: Status: Active Protocol: Document 09/10/23 07:35 LRN (Rec: 09/10/23 08:18 LRN [id number]) Shoulder Strength Shoulder Manual Muscle Testing Right Abduction (C5) 3 Fair External Rotation 4+ Good+ Internal Rotation 4+ Good+ Comments Except as indicated above strength is 5/5 in major muscle groups. Left Comments Strength is 5/5 in major muscle groups. PT-OP-Q Treatments Start: 09/05/23 17:27 Freq: Status: Active Protocol: Document 09/20/23 08:06 AB (Rec: 09/20/23 10:00 AB [id number]) Therapeutic Exercises Supine Exercises mini band Supine Exercise Name Shoulder ER with flexion Side bilateral Reps/Minutes X1 Comments not chidi Sidelying Exercises shoulder IR AROM Side right Reps/Minutes X15 Comments verbal and tactile cues for direction of movement open book Sidelying Exercise Name Trialed Side bilateral Reps/Minutes X4 holding 5 breaths sleeper stretch Side right Reps/Minutes 60 sec X 2 Comments Manual cue for position and direction of overpressure Sitting Exercises seated ER Sitting Exercise Name body over UE movement PROM and AROM Side right Reps/Minutes 3X15 sec for body over UE, X10 for AROM Standing Exercises Shoulder IR strengthening Standing Exercise Name ER and IR in standing this session Side right Equipment Used Lev 2TB Reps/Minutes X15 each Comments monitored for pain Manual Therapy Treatment Soft Tissue Mobilization R shld Body Location pec muscles, post cuf, UT/ levator, lat Mobilization Type Cross-Friction,Rolling, Sustained Pressure Intensity/Depth Moderate Body Position Hooklying Comments and sidelying Joint Mobilizations R GH jt Direction inferior, posterior Grade IV Body Position X10 X 3 R scapulothoracic Direction into depression; and adduction Grade III Body Position Sidelying Reps/Duration X15 eac Self-Care/Home Management Treatment Activities Self-Care/Home Management Activities Sidelying IR AROM, seated body over UE PROM ER and seated AROM ER added to HEP PT-OP-T Assessment and Plan Start: 09/05/23 17:27 Freq: Status: Active Protocol: Document 09/20/23 08:06 AB (Rec: 09/20/23 10:00 AB [id number]) Physical Therapy Assessment Goals Three Impairment Decreased R shoulder strength Impairment R shoulder strength is 5/5 except AB 3/5, ER & IR 4+/5 Skilled Nursing Goal (LTG) Improve R shoulder strength with pt able to work at his prior level of function without pain. LTG Duration 10 wks-11/22/23 Two Impairment Decreased R shoulder AROM due to pain. Impairment Sitting (in deg's): Flex 137 R , 160 R; AB 148 R, 158 L; ER ( 0 deg's AB) 57 R, 62 L; IR T12 R, T10 L. Short Term Goal (STG) Improve R scapulohumeral rhythm with pt able to perform R shoulder AROM without pain. STG Duration 4 wks-10/11/23 Skilled Nursing Goal (LTG) Improve R shoulder ROM with pt able to throw a baseball and golf with minimal to no discomfort. LTG Duration 10 wks-11/22/23 One Impairment Pt lacks appropriate self care HEP Short Term Goal (STG) Pt will be educated in self care pain management (RICE) technique and positioning in partial sidelie for nighttime pain relief. 09/12/23: Pt educated in RICE technique. STG Duration 4 wks-10/11/23 progressing 09/08/23 Utility Bag Assembler Goal (LTG) Pt will be independent in a self care HEP of R shoulder/ scapula strengthening exercises and neck/R shoulder ROM ex's. LTG Duration 10 wks-11/22/23 Assessment Summary Assessment 141 deg AROM right shoulder flexion post manual therapy, seated and supine ex, but dec to 135 deg post shoulder ER and IR with band.Increase in AROM right shoulder flexion end of session compared to start of session, but not yet WNL. Physical Therapy Plan Frequency and Duration Frequency of Treatment 2x/Week Duration of treatment (weeks) 10 Plan of Care Start Date 09/10/23 Plan of Care End Date 11/22/23 Next Visit Focus/Plan Next Note Type Treatment Note Next Visit Plan resisted shld ext, self STMs, Next: Check Belly Press. Review R shoulder ROM and strengthening (possibly wall slide) for ability to do w/o pain. Reassess chidi to mini band exercise. Try K-taping for R impingement syndrome if not allergic to latex. Scapular stabilization and RC strengthening f/b R shoulder ROM ex's along with core stabilization.
--- NOTE | 2023-09-26 11:59 | PT.OTN ---
Current Diagnoses Impingement syndrome of right shoulder (09/26/23) Strain of unspecified muscle, fascia and tendon at shoulder and upper arm level, right arm, subsequent encounter (09/26/23) Civilian activity done for income or pay (09/26/23) Physical Therapy Treatment Note PT-OP-A Visit Information Start: 09/05/23 17:27 Freq: Status: Active Protocol: Document 09/26/23 09:05 LRN (Rec: 09/26/23 09:51 LRN [id number]) Out-Patient Physical Therapy Visit Information Visit Information Visit Type Treatment Note Visit Start Time 09:05 Visit Stop Time 09:48 Visit Number 5 Evaluation Information Evaluation Date 09/10/23 Precautions Precautions Per intake form: hearing problems, arthritis, neck & back pain. PT-OP-B Current Condition Start: 09/05/23 17:27 Freq: Status: Active Protocol: Document 09/10/23 07:35 LRN (Rec: 09/10/23 08:18 LRN [id number]) Current Condition History of Current Condition Onset Date 2022 Current Complaints R shdr pain with reaching forward History of Current Condition Pt reports he was pulling wire overhead and the next morning couldn't lift his arm because of pain at the posterior R shoulder joint and if leaning on the elbow in his car, he has pain in the same location. States he is getting a little better because he can lift his arm, but feels a strain at ~30 deg's AB of the arm, and feels something is catching when he reaches to turn his radio on in his car. He denies pain with lifting. Pt reports no prior history of pain. 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 Pt is R handed. Every once in awhile he has pain with sleeping while on the R shoulder. His pain is relieved by turning to the other side and resting his arm on a pillow. Prior Treatments and Tests Pt reports X-rays taken were negative for bony changes. Future Testing and Treatments Planned None Treatment Goals Patient/Caregiver Goals Pt goal's: - learning self care to help make shoulder stronger - be able to work at prior level of function (Full painfree ROM for: throwing baseball and golfing). 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 PT-OP-C Subjective Start: 09/05/23 17:27 Freq: Status: Active Protocol: Document 09/26/23 09:05 LRN (Rec: 09/26/23 09:51 LRN [id number]) OP-PT Subjective Patient Comments Patient Comments States he is doing self stretch with ball at home, but did not this week because it' s been a light work week and he didn't feel like he needed it. PT-OP-E Functional Tests Start: 09/05/23 17:27 Freq: Status: Active Protocol: Document 09/10/23 07:35 LRN (Rec: 09/10/23 08:18 LRN [id number]) Functional Tests Apley's Scratch Test Action 1- Left Below spine of scapula Action 1- Right On spine of scapula Action 2- Left T2 Action 2- Right T2 Action 3- Left T10 Action 3- Right T12 PT-OP-H Neuro Start: 09/05/23 17:27 Freq: Status: Active Protocol: Document 09/10/23 07:35 LRN (Rec: 09/10/23 08:18 LRN [id number]) Sensation Evaluation Gross Sensation Gross Sensation WNL PT-OP-J Posture/Palpation/Skin Start: 09/05/23 17:27 Freq: Status: Active Protocol: Document 09/10/23 07:35 LRN (Rec: 09/10/23 08:18 LRN [id number]) Posture Evaluation Position Standing Shoulder Posture (R) Rounded,(R) Forward,(R) Elevated Scapula Posture (R) Depressed Arm Posture (L) Internally Rotated,(R) Internally Rotated Knee Posture (L) Genu Varus,(R) Genu Varus Comments Posture Comments Neck shifted left, increased lordosis, protruding abdomen, atrophy of R dominant shoulder ms (UT, Supr, infra, Teres Major & Minor, Deltoids) Palpation Assessment Location R shoulder Palpation Location Tender Minor > Teres jason Palpation Findings Tenderness PT-OP-K Range of Motion Start: 09/05/23 17:27 Freq: Status: Active Protocol: Document 09/20/23 08:06 AB (Rec: 09/20/23 10:02 AB [id number]) Shoulder Goniometric Range of Motion Shoulder Right Active Shoulder ROM WFL No Testing Position Standing Flexion 135 Comments end of session PT-OP-L Special Tests Start: 09/05/23 17:27 Freq: Status: Active Protocol: Document 09/12/23 08:19 LRN (Rec: 09/12/23 09:10 LRN [id number]) Special Tests Shoulder Special Tests [place] Test Test Results ? positive Comments Click felt once, then was not able to reproduce. PT-OP-M Strength Start: 09/05/23 17:27 Freq: Status: Active Protocol: Document 09/10/23 07:35 LRN (Rec: 09/10/23 08:18 LRN [id number]) Shoulder Strength Shoulder Manual Muscle Testing Right Abduction (C5) 3 Fair External Rotation 4+ Good+ Internal Rotation 4+ Good+ Comments Except as indicated above strength is 5/5 in major muscle groups. Left Comments Strength is 5/5 in major muscle groups. PT-OP-Q Treatments Start: 09/05/23 17:27 Freq: Status: Active Protocol: Document 09/26/23 09:05 LRN (Rec: 09/26/23 09:51 LRN [id number]) Therapeutic Exercises Supine Exercises Lat pull down Side bilateral Equipment Used Lev 3, 1#x2 wgts on dowel stick Reps/Minutes 10x Comments Cued for adjustments to scap during motion. R shoulder stretch Supine Exercise Name Flex stretch Side right Reps/Minutes 3' Comments cued to adjust scapula to avoid pain w/ROM Sidelying Exercises open book Sidelying Exercise Name Pt watching hand and leading with head rot Side bilateral Reps/Minutes 10x, 1-2 breath hold sleeper stretch Sidelying Exercise Name DC'd due to R side mobility > L Side right Reps/Minutes 1' Comments Manual cue for position and direction of overpressure Standing Exercises shld ext Standing Exercise Name Shdr partial ext, work on scapular retract/depression Side bilateral Resistance TB #3 [place] green Equipment Used Mirror Reps/Minutes 15' Comments Pt able to control elevation of shdrs w/use of mirror, phy & vcuing Row Standing Exercise Name Extra scap retract at end Side bilateral Reps/Minutes 10x 3 Comments Much phy & v cuing for scapula to get end-range retraction. Shoulder IR strengthening Standing Exercise Name ER and IR in standing this session Side right Equipment Used Lev 2TB Reps/Minutes X15 each Comments monitored for pain Therapeutic Activity Therapeutic Activity Nighttime positioning Name Positional training for sidelie nighttime sleeping w/ pillow use Reps/Minutes 10' Comments Also discussed head positioning to avoid stiff neck in morning. PT-OP-T Assessment and Plan Start: 09/05/23 17:27 Freq: Status: Active Protocol: Document 09/26/23 09:05 LRN (Rec: 09/26/23 09:51 LRN [id number]) Physical Therapy Assessment Goals Three Impairment Decreased R shoulder strength Impairment R shoulder strength is 5/5 except AB 3/5, ER & IR 4+/5 [facility] Goal (LTG) Improve R shoulder strength with pt able to work at his prior level of function without pain. LTG Duration 10 wks-11/22/23 Two Impairment Decreased R shoulder AROM due to pain. Impairment Sitting (in deg's): Flex 137 R , 160 R; AB 148 R, 158 L; ER ( 0 deg's AB) 57 R, 62 L; IR T12 R, T10 L. Short Term Goal (STG) Improve R scapulohumeral rhythm with pt able to perform R shoulder AROM without pain. STG Duration 4 wks-10/11/23 Accounting Methods Analyst Goal (LTG) Improve R shoulder ROM with pt able to throw a baseball and golf with minimal to no discomfort. 09/26/23: As measured by Vivien Howard 09/20/23: 141 deg AROM right shoulder flexion (?seated/sup) and 135 deg post shoulder ER and IR with band. LTG Duration 10 wks-11/22/23 One Impairment Pt lacks appropriate self care HEP Short Term Goal (STG) Pt will be educated in self care pain management (RICE) technique and positioning in partial sidelie for nighttime pain relief. 09/12/23: Pt educated in RICE technique. 09/26/23: Some mornings has stiffness in R shdr when waking but resovles once up walking. Positional traninng given for best R shoulder supported positions. STG Duration 4 wks-10/11/23 (09/26/23: MET GOAL) [facility] Goal (LTG) Pt will be independent in a self care HEP of R shoulder/ scapula strengthening exercises and neck/R shoulder ROM ex's. 09/26/23: On 09/10/23 HEP of: Scap retract/depression & TB shdr ER/IR. Issued Lev 2 TB. On 09/12/23 HEP: C/S AROM stretching. On 09/20/23: HEP of Sidelying IR AROM, seated body over UE PROM ER and seated AROM ER LTG Duration 10 wks-11/22/23 previously progressed 09/20/23. Assessment Summary Assessment 58 yo male who presents with R shoulder impingement with scapular dysfunction of possibly Teres minor/major, or Infraspinatus muscle and postural changes. He continues to have poor scapulohumeral rhythm. Pt needs more work on improving scapular positiong through reeducation and strengthening. Visual feedback worked well to keep scapular moving in retraction/depression during shoulder strengthening. Pt not able to identify dysfunctional movement of shoulder w/o visual feedback. Physical Therapy Plan Frequency and Duration Frequency of Treatment 2x/Week Duration of treatment (weeks) 10 Plan of Care Start Date 09/10/23 Plan of Care End Date 11/22/23 Next Visit Focus/Plan Next Note Type Treatment Note Next Visit Plan Next: Check Belly Press. More scapulo humeral rhythm, scap stab strengthening, ?JMT; less STM. Pt to focus on self STMs/C. ROM. Assess for Progress towards goals. Reassess chidi to mini band exercise. Ex: R shoulder ROM and strengthening (?wall slide) for ability to do w/o pain. Try K-taping for R impingement syndrome if not allergic to latex. POC: Scapular stabilization and RC strengthening f/b R shoulder ROM ex's along with core stabilization.
--- NOTE | 2023-10-08 08:10 | PT.OTN ---
Current Diagnoses Impingement syndrome of right shoulder (10/08/23) Strain of unspecified muscle, fascia and tendon at shoulder and upper arm level, right arm, subsequent encounter (10/08/23) Civilian activity done for income or pay (10/08/23) Physical Therapy Treatment Note PT-OP-A Visit Information Start: 09/05/23 17:27 Freq: Status: Active Protocol: Document 10/08/23 07:30 SP (Rec: 10/08/23 08:19 SP [id number]) Out-Patient Physical Therapy Visit Information Visit Information Visit Type Treatment Note Visit Start Time 07:30 Visit Stop Time 08:10 Visit Number 6 Number of KEYPUNCHER Visits 1 Evaluation Information Evaluation Date 09/10/23 Precautions Precautions Per intake form: hearing problems, arthritis, neck & back pain. PT-OP-B Current Condition Start: 09/05/23 17:27 Freq: Status: Active Protocol: Document 09/10/23 07:35 LRN (Rec: 09/10/23 08:18 LRN [id number]) Current Condition History of Current Condition Onset Date 2022 Current Complaints R shdr pain with reaching forward History of Current Condition Pt reports he was pulling wire overhead and the next morning couldn't lift his arm because of pain at the posterior R shoulder joint and if leaning on the elbow in his car, he has pain in the same location. States he is getting a little better because he can lift his arm, but feels a strain at ~30 deg's AB of the arm, and feels something is catching when he reaches to turn his radio on in his car. He denies pain with lifting. Pt reports no prior history of pain. 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 Every once in awhile he has pain with sleeping while on the R shoulder. His pain is relieved by turning to the other side and resting his arm on a pillow. Prior Treatments and Tests Pt reports X-rays taken were negative for bony changes. Future Testing and Treatments Planned None Treatment Goals Patient/Caregiver Goals Pt goal's: - learning self care to help make shoulder stronger - be able to work at prior level of function (Full painfree ROM for: throwing baseball and golfing). 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 PT-OP-C Subjective Start: 09/05/23 17:27 Freq: Status: Active Protocol: Document 10/08/23 07:30 SP (Rec: 10/08/23 08:19 SP [id number]) OP-PT Subjective Patient Comments Patient Comments Pt reports did well after last tx but since then hurt bicepto anterior shld and hurts to lateral raise arm, not sure how. He states started incorporating past exercises did in baseball- tennis wall ball throwing about 10 ft away from wall abd /ER and supine abd/ER with 2# wt into ER stretching. PT-OP-E Functional Tests Start: 09/05/23 17:27 Freq: Status: Active Protocol: Document 09/10/23 07:35 LRN (Rec: 09/10/23 08:18 LRN [id number]) Functional Tests Apley's Scratch Test Action 1- Left Below spine of scapula Action 1- Right On spine of scapula Action 2- Left T2 Action 2- Right T2 Action 3- Left T10 Action 3- Right T12 PT-OP-H Neuro Start: 09/05/23 17:27 Freq: Status: Active Protocol: Document 09/10/23 07:35 LRN (Rec: 09/10/23 08:18 LRN [id number]) Sensation Evaluation Gross Sensation Gross Sensation WNL PT-OP-J Posture/Palpation/Skin Start: 09/05/23 17:27 Freq: Status: Active Protocol: Document 09/10/23 07:35 LRN (Rec: 09/10/23 08:18 LRN [id number]) Posture Evaluation Position Standing Shoulder Posture (R) Rounded,(R) Forward,(R) Elevated Scapula Posture (R) Depressed Arm Posture (L) Internally Rotated,(R) Internally Rotated Knee Posture (L) Genu Varus,(R) Genu Varus Comments Posture Comments Neck shifted left, increased lordosis, protruding abdomen, atrophy of R dominant shoulder ms (UT, Supr, infra, Teres Major & Minor, Deltoids) Palpation Assessment Location R shoulder Palpation Location Tender Minor > Teres jason Palpation Findings Tenderness PT-OP-K Range of Motion Start: 09/05/23 17:27 Freq: Status: Active Protocol: Document 09/20/23 08:06 AB (Rec: 09/20/23 10:02 AB [id number]) Shoulder Goniometric Range of Motion Shoulder Right Active Shoulder ROM WFL No Testing Position Standing Flexion 135 Comments end of session PT-OP-L Special Tests Start: 09/05/23 17:27 Freq: Status: Active Protocol: Document 09/12/23 08:19 LRN (Rec: 09/12/23 09:10 LRN [id number]) Special Tests Shoulder Special Tests [place] Test Test Results ? positive Comments Click felt once, then was not able to reproduce. PT-OP-M Strength Start: 09/05/23 17:27 Freq: Status: Active Protocol: Document 09/10/23 07:35 LRN (Rec: 09/10/23 08:18 LRN [id number]) Shoulder Strength Shoulder Manual Muscle Testing Right Abduction (C5) 3 Fair External Rotation 4+ Good+ Internal Rotation 4+ Good+ Comments Except as indicated above strength is 5/5 in major muscle groups. Left Comments Strength is 5/5 in major muscle groups. PT-OP-Q Treatments Start: 09/05/23 17:27 Freq: Status: Active Protocol: Document 10/08/23 07:30 SP (Rec: 10/08/23 08:19 SP [id number]) Therapeutic Exercises Standing Exercises bicep stretch Standing Exercise Name reviewed self stretch Side right Reps/Minutes 20 SH Comments good stretch response shld ext Standing Exercise Name Shdr partial ext, work on scapular retract/depression Side bilateral Resistance TB #3 [place] green Equipment Used Mirror Reps/Minutes x15 reps Comments [place] & vcuing scap retract/ depresss Shoulder stretches Standing Exercise Name IR stretch Side right Equipment Used use pillow case behind back Reps/Minutes 10 SH x 5 each Comments pnfree, tension ant shld Shoulder IR strengthening Standing Exercise Name ER and IR in standing this session Side right Equipment Used Lev 2>3TB Reps/Minutes X15 each- pnfree Comments Cued open chest, improved scap retract& humeral depress con/ecc Other Exercises self STMs Other Exercise Name verbal review with manual Side right Comments sustained pressure MWM humeral IR/ER over prox bicep/ distal pec Manual Therapy Treatment Soft Tissue Mobilization R shld Body Location R bicep, distal pec Mobilization Type Rolling,Sustained Pressure, Other Intensity/Depth Moderate Body Position Hooklying Comments PROM humeral IR/ER, punching motion /c ed self STMs same directioning PT-OP-R Modalities Start: 09/05/23 17:27 Freq: Status: Active Protocol: Document 10/08/23 07:30 SP (Rec: 10/08/23 08:19 SP [id number]) Ultrasound Therapy Treatment R shld Patient Position Supine Frequency Setting (mHz) 3 Duty Cycle 50% Intensity Setting (w/cm2) 1.5 Comments prox bicep, distal pec PT-OP-T Assessment and Plan Start: 09/05/23 17:27 Freq: Status: Active Protocol: Document 10/08/23 07:30 SP (Rec: 10/08/23 08:19 SP [id number]) Physical Therapy Assessment Goals Three Impairment Decreased R shoulder strength Impairment R shoulder strength is 5/5 except AB 3/5, ER & IR 4+/5 Retirement Goal (LTG) Improve R shoulder strength with pt able to work at his prior level of function without pain. LTG Duration 10 wks-11/22/23 Two Impairment Decreased R shoulder AROM due to pain. Impairment Sitting (in deg's): Flex 137 R , 160 R; AB 148 R, 158 L; ER ( 0 deg's AB) 57 R, 62 L; IR T12 R, T10 L. Short Term Goal (STG) Improve R scapulohumeral rhythm with pt able to perform R shoulder AROM without pain. STG Duration 4 wks-10/11/23 [place] Frame Builder Goal (LTG) Improve R shoulder ROM with pt able to throw a baseball and golf with minimal to no discomfort. 09/26/23: As measured by Vivien Howard 09/20/23: 141 deg AROM right shoulder flexion (?seated/sup) and 135 deg post shoulder ER and IR with band. LTG Duration 10 wks-11/22/23 One Impairment Pt lacks appropriate self care HEP Short Term Goal (STG) Pt will be educated in self care pain management (RICE) technique and positioning in partial sidelie for nighttime pain relief. 09/12/23: Pt educated in RICE technique. 09/26/23: Some mornings has stiffness in R shdr when waking but resovles once up walking. Positional traninng given for best R shoulder supported positions. STG Duration 4 wks-10/11/23 (09/26/23: MET GOAL) Retirement Goal (LTG) Pt will be independent in a self care HEP of R shoulder/ scapula strengthening exercises and neck/R shoulder ROM ex's. 09/26/23: On 09/10/23 HEP of: Scap retract/depression & TB shdr ER/IR. Issued Lev 2 TB. On 09/12/23 HEP: C/S AROM stretching. On 09/20/23: HEP of Sidelying IR AROM, seated body over UE PROM ER and seated AROM ER LTG Duration 10 wks-11/22/23 previously progressed 09/20/23. Assessment Summary Assessment Pt reported better understanding scap retract/ depress with tactile and VCs today. Good gentle stretch over anterior R shld with use pillow case behind back and bicep at wall. Pt would benefit review form of his self tennis wall ball abd/ ER and supine eccentric ER with wt for form. Physical Therapy Plan Frequency and Duration Frequency of Treatment 2x/Week Duration of treatment (weeks) 10 Plan of Care Start Date 09/10/23 Plan of Care End Date 11/22/23 Therapeutic Interventions Therapeutic Interventions Home Exercise Program,Joint Mobilizations,Manual Therapy, Neuromuscular Re-education, Self-Care/Home Management,Soft Tissue Mobilization,Taping, Therapeutic Activities, Therapeutic Exercises Modalities Cold Pack/Ice Massage,Electric Stimulation,Hot Packs, Ultrasound Next Visit Focus/Plan Next Note Type Treatment Note Next Visit Plan Next recheck scap form with HEP, form/response self tennis wall ball and eccentric ER supine at 90 abd. PT suggested Check Belly Press. More scapulo humeral rhythm, scap stab strengthening, ?JMT; less STM. Pt to focus on self STMs/C. ROM. Assess for Progress towards goals. Ex: R shoulder ROM and strengthening (?wall slide) for ability to do w/o pain. Try K-taping for R impingement syndrome if not allergic to latex. POC: Scapular stabilization and RC strengthening f/b R shoulder ROM ex's along with core stabilization.
--- NOTE | 2023-10-14 08:09 | PT.OTN ---
Current Diagnoses Impingement syndrome of right shoulder (10/14/23) Strain of unspecified muscle, fascia and tendon at shoulder and upper arm level, right arm, subsequent encounter (10/14/23) Civilian activity done for income or pay (10/14/23) Physical Therapy Treatment Note PT-OP-A Visit Information Start: 09/05/23 17:27 Freq: Status: Active Protocol: Document 10/14/23 07:31 SP (Rec: 10/14/23 08:16 SP [id number]) Out-Patient Physical Therapy Visit Information Visit Information Visit Type Treatment Note Visit Start Time 07:31 Visit Stop Time 08:09 Visit Number 7 Number of MORTICIAN INVESTIGATOR Visits 2 Evaluation Information Evaluation Date 09/10/23 Precautions Precautions Per intake form: hearing problems, arthritis, neck & back pain. PT-OP-B Current Condition Start: 09/05/23 17:27 Freq: Status: Active Protocol: Document 09/10/23 07:35 LRN (Rec: 09/10/23 08:18 LRN [id number]) Current Condition History of Current Condition Onset Date 2022 Current Complaints R shdr pain with reaching forward History of Current Condition Pt reports he was pulling wire overhead and the next morning couldn't lift his arm because of pain at the posterior R shoulder joint and if leaning on the elbow in his car, he has pain in the same location. States he is getting a little better because he can lift his arm, but feels a strain at ~30 deg's AB of the arm, and feels something is catching when he reaches to turn his radio on in his car. He denies pain with lifting. Pt reports no prior history of pain. 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 Pt is R handed. Every once in awhile he has pain with sleeping while on the R shoulder. His pain is relieved by turning to the other side and resting his arm on a pillow. Prior Treatments and Tests Pt reports X-rays taken were negative for bony changes. Future Testing and Treatments Planned None Treatment Goals Patient/Caregiver Goals Pt goal's: - learning self care to help make shoulder stronger - be able to work at prior level of function (Full painfree ROM for: throwing baseball and golfing). 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 PT-OP-C Subjective Start: 09/05/23 17:27 Freq: Status: Active Protocol: Document 10/14/23 07:31 SP (Rec: 10/14/23 08:16 SP [id number]) OP-PT Subjective Patient Comments Patient Comments Pt reports doing well this am. Yesterday felt irritation then popping in R anterior shld after underhand tossed something to a coworker. Moved his shoulder around and eventually worked it out. Compliant with HEP. PT-OP-E Functional Tests Start: 09/05/23 17:27 Freq: Status: Active Protocol: Document 09/10/23 07:35 LRN (Rec: 09/10/23 08:18 LRN [id number]) Functional Tests Apley's Scratch Test Action 1- Left Below spine of scapula Action 1- Right On spine of scapula Action 2- Left T2 Action 2- Right T2 Action 3- Left T10 Action 3- Right T12 PT-OP-H Neuro Start: 09/05/23 17:27 Freq: Status: Active Protocol: Document 09/10/23 07:35 LRN (Rec: 09/10/23 08:18 LRN [id number]) Sensation Evaluation Gross Sensation Gross Sensation WNL PT-OP-J Posture/Palpation/Skin Start: 09/05/23 17:27 Freq: Status: Active Protocol: Document 09/10/23 07:35 LRN (Rec: 09/10/23 08:18 LRN [id number]) Posture Evaluation Position Standing Shoulder Posture (R) Rounded,(R) Forward,(R) Elevated Scapula Posture (R) Depressed Arm Posture (L) Internally Rotated,(R) Internally Rotated Knee Posture (L) Genu Varus,(R) Genu Varus Comments Posture Comments Neck shifted left, increased lordosis, protruding abdomen, atrophy of R dominant shoulder ms (UT, Supr, infra, Teres Major & Minor, Deltoids) Palpation Assessment Location R shoulder Palpation Location Tender Minor > Teres jason Palpation Findings Tenderness PT-OP-K Range of Motion Start: 09/05/23 17:27 Freq: Status: Active Protocol: Document 09/20/23 08:06 AB (Rec: 09/20/23 10:02 AB [id number]) Shoulder Goniometric Range of Motion Shoulder Right Active Shoulder ROM WFL No Testing Position Standing Flexion 135 Comments end of session PT-OP-L Special Tests Start: 09/05/23 17:27 Freq: Status: Active Protocol: Document 09/12/23 08:19 LRN (Rec: 09/12/23 09:10 LRN [id number]) Special Tests Shoulder Special Tests [place] Test Test Results ? positive Comments Click felt once, then was not able to reproduce. PT-OP-M Strength Start: 09/05/23 17:27 Freq: Status: Active Protocol: Document 09/10/23 07:35 LRN (Rec: 09/10/23 08:18 LRN [id number]) Shoulder Strength Shoulder Manual Muscle Testing Right Abduction (C5) 3 Fair External Rotation 4+ Good+ Internal Rotation 4+ Good+ Comments Except as indicated above strength is 5/5 in major muscle groups. Left Comments Strength is 5/5 in major muscle groups. PT-OP-Q Treatments Start: 09/05/23 17:27 Freq: Status: Active Protocol: Document 10/14/23 07:31 SP (Rec: 10/14/23 08:16 SP [id number]) Cardio Equipment Upper Body Ergometer (UBE) Duration (Minutes) 6 Seat Position 11 Height 4.5 Other 50>60RPMs, 1 min f/b alternating Therapeutic Exercises Sitting Exercises eccentric FF & ABD Sitting Exercise Name added to HEP declined HO Side right Resistance TB #5, anchored approx height of hand/forearm extended when sitting Equipment Used chair Reps/Minutes x15 Comments cued elbow ext/ wrist neutral, improved shld stretch to ROM WNL abd IR & eccentric ER Sitting Exercise Name added to HEP declined HO Side right Resistance TB #3 Reps/Minutes x15 reps Comments cued maintain 90 deg abd Standing Exercises wall ball Standing Exercise Name added to HEP (review self activity) Side right Resistance AROM Equipment Used tennis>reg 1000g ball bounce against wall (hand 2-3 away wall) Reps/Minutes 2x15 reps Comments cues for trunk positioning, maintain 90 deg abd elbow, muscle tiring abd ER Standing Exercise Name added to HEP- declined HO Side right Resistance TB #2 Reps/Minutes x15 Comments cued maintain abd 90deg Shoulder stretches Standing Exercise Name IR stretch Side right Equipment Used towel behind back Reps/Minutes 10 SH x 5 each Comments pnfree, tension ant shld Shoulder IR strengthening Standing Exercise Name ER and IR in standing this session Side right Resistance Lev 3TB Equipment Used towel roll under arm Reps/Minutes X15 each- pnfree Comments Cued open chest, improved scap retract& humeral depress con/ecc PT-OP-R Modalities Start: 09/05/23 17:27 Freq: Status: Active Protocol: Document 10/08/23 07:30 SP (Rec: 10/08/23 08:19 SP [id number]) Ultrasound Therapy Treatment R shld Patient Position Supine Frequency Setting (mHz) 3 Duty Cycle 50% Intensity Setting (w/cm2) 1.5 Comments prox bicep, distal pec PT-OP-T Assessment and Plan Start: 09/05/23 17:27 Freq: Status: Active Protocol: Document 10/14/23 07:31 SP (Rec: 10/14/23 08:16 SP [id number]) Physical Therapy Assessment Goals Three Impairment Decreased R shoulder strength Impairment R shoulder strength is 5/5 except AB 3/5, ER & IR 4+/5 Chip Crusher Operator Goal (LTG) Improve R shoulder strength with pt able to work at his prior level of function without pain. LTG Duration 10 wks-11/22/23 Two Impairment Decreased R shoulder AROM due to pain. Impairment Sitting (in deg's): Flex 137 R , 160 R; AB 148 R, 158 L; ER ( 0 deg's AB) 57 R, 62 L; IR T12 R, T10 L. Short Term Goal (STG) Improve R scapulohumeral rhythm with pt able to perform R shoulder AROM without pain. STG Duration 4 wks-10/11/23 Chip Crusher Operator Goal (LTG) Improve R shoulder ROM with pt able to throw a baseball and golf with minimal to no discomfort. 09/26/23: As measured by Vivien Howard 09/20/23: 141 deg AROM right shoulder flexion (?seated/sup) and 135 deg post shoulder ER and IR with band. 10/14/23: added wall wt ball 90 /90, con & eccentric abd/ir & er TB. LTG Duration 10 wks-11/22/23 progressing 02/26 One Impairment Pt lacks appropriate self care HEP Short Term Goal (STG) Pt will be educated in self care pain management (RICE) technique and positioning in partial sidelie for nighttime pain relief. 09/12/23: Pt educated in RICE technique. 09/26/23: Some mornings has stiffness in R shdr when waking but resovles once up walking. Positional traninng given for best R shoulder supported positions. STG Duration 4 wks-10/11/23 (09/26/23: MET GOAL) Chip Crusher Operator Goal (LTG) Pt will be independent in a self care HEP of R shoulder/ scapula strengthening exercises and neck/R shoulder ROM ex's. 09/26/23: On 09/10/23 HEP of: Scap retract/depression & TB shdr ER/IR. Issued Lev 2 TB. On 09/12/23 HEP: C/S AROM stretching. On 09/20/23: HEP of Sidelying IR AROM, seated body over UE PROM ER and seated AROM ER LTG Duration 10 wks-11/22/23 previously progressed 09/20/23. Assessment Summary Assessment Pt reports good anterior R shld stretch, good muscle tiring challenge with wall wt ball. Occ cues for scap set retract/depress, improved rhomboid and LT fac with ABD/ ER and IR against resistance today with no adverse affects, discussed adding to HEP, declined handouts. Physical Therapy Plan Frequency and Duration Frequency of Treatment 2x/Week Duration of treatment (weeks) 10 Plan of Care Start Date 09/10/23 Plan of Care End Date 11/22/23 Therapeutic Interventions Therapeutic Interventions Home Exercise Program,Joint Mobilizations,Manual Therapy, Neuromuscular Re-education, Self-Care/Home Management,Soft Tissue Mobilization,Taping, Therapeutic Activities, Therapeutic Exercises Modalities Cold Pack/Ice Massage,Electric Stimulation,Hot Packs, Ultrasound Next Visit Focus/Plan Next Note Type Treatment Note Next Visit Plan Next recheck scap form with HEP, form/response self tennis wall ball, abd /c ER and IR TB seated/standing. POC: PT suggested Check Belly Press. More scapulo humeral rhythm, scap stab strengthening, ?JMT; less STM. Pt to focus on self STMs/C. ROM. Assess for Progress towards goals. Ex: R shoulder ROM and strengthening (?wall slide) for ability to do w/o pain. Try K-taping for R impingement syndrome if not allergic to latex. POC: Scapular stabilization and RC strengthening f/b R shoulder ROM ex's along with core stabilization.
--- NOTE | 2023-10-18 08:15 | PT.OTN ---
Current Diagnoses Impingement syndrome of right shoulder (10/18/23) Strain of unspecified muscle, fascia and tendon at shoulder and upper arm level, right arm, subsequent encounter (10/18/23) Civilian activity done for income or pay (10/18/23) Physical Therapy Treatment Note PT-OP-A Visit Information Start: 09/05/23 17:27 Freq: Status: Active Protocol: Document 10/18/23 07:33 SP (Rec: 10/18/23 08:17 SP [id number]) Out-Patient Physical Therapy Visit Information Visit Information Visit Type Treatment Note Visit Start Time 07:33 Visit Stop Time 08:15 Visit Number 8 Number of SLACKMAN Visits 3 Evaluation Information Evaluation Date 09/10/23 Precautions Precautions Per intake form: hearing problems, arthritis, neck & back pain. PT-OP-B Current Condition Start: 09/05/23 17:27 Freq: Status: Active Protocol: Document 09/10/23 07:35 LRN (Rec: 09/10/23 08:18 LRN [id number]) Current Condition History of Current Condition Onset Date 2022 Current Complaints R shdr pain with reaching forward History of Current Condition Pt reports he was pulling wire overhead and the next morning couldn't lift his arm because of pain at the posterior R shoulder joint and if leaning on the elbow in his car, he has pain in the same location. States he is getting a little better because he can lift his arm, but feels a strain at ~30 deg's AB of the arm, and feels something is catching when he reaches to turn his radio on in his car. He denies pain with lifting. Pt reports no prior history of pain. 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 Every once in awhile he has pain with sleeping while on the R shoulder. His pain is relieved by turning to the other side and resting his arm on a pillow. Prior Treatments and Tests Pt reports X-rays taken were negative for bony changes. Future Testing and Treatments Planned None Treatment Goals Patient/Caregiver Goals Pt goal's: - learning self care to help make shoulder stronger - be able to work at prior level of function (Full painfree ROM for: throwing baseball and golfing). 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 PT-OP-C Subjective Start: 09/05/23 17:27 Freq: Status: Active Protocol: Document 10/18/23 07:33 SP (Rec: 10/18/23 08:17 SP [id number]) OP-PT Subjective Patient Comments Patient Comments Pt reports did well after last tx. Since has tried throwing ball with dog and noticed bicep hurting little and realized hasn't been using in while. PT-OP-E Functional Tests Start: 09/05/23 17:27 Freq: Status: Active Protocol: Document 09/10/23 07:35 LRN (Rec: 09/10/23 08:18 LRN [id number]) Functional Tests Apley's Scratch Test Action 1- Left Below spine of scapula Action 1- Right On spine of scapula Action 2- Left T2 Action 2- Right T2 Action 3- Left T10 Action 3- Right T12 PT-OP-H Neuro Start: 09/05/23 17:27 Freq: Status: Active Protocol: Document 09/10/23 07:35 LRN (Rec: 09/10/23 08:18 LRN [id number]) Sensation Evaluation Gross Sensation Gross Sensation WNL PT-OP-J Posture/Palpation/Skin Start: 09/05/23 17:27 Freq: Status: Active Protocol: Document 09/10/23 07:35 LRN (Rec: 09/10/23 08:18 LRN [id number]) Posture Evaluation Position Standing Shoulder Posture (R) Rounded,(R) Forward,(R) Elevated Scapula Posture (R) Depressed Arm Posture (L) Internally Rotated,(R) Internally Rotated Knee Posture (L) Genu Varus,(R) Genu Varus Comments Posture Comments Neck shifted left, increased lordosis, protruding abdomen, atrophy of R dominant shoulder ms (UT, Supr, infra, Teres Major & Minor, Deltoids) Palpation Assessment Location R shoulder Palpation Location Tender Minor > Teres jason Palpation Findings Tenderness PT-OP-K Range of Motion Start: 09/05/23 17:27 Freq: Status: Active Protocol: Document 09/20/23 08:06 AB (Rec: 09/20/23 10:02 AB [id number]) Shoulder Goniometric Range of Motion Shoulder Right Active Shoulder ROM WFL No Testing Position Standing Flexion 135 Comments end of session PT-OP-L Special Tests Start: 09/05/23 17:27 Freq: Status: Active Protocol: Document 09/12/23 08:19 LRN (Rec: 09/12/23 09:10 LRN [id number]) Special Tests Shoulder Special Tests [place] Test Test Results ? positive Comments Click felt once, then was not able to reproduce. PT-OP-M Strength Start: 09/05/23 17:27 Freq: Status: Active Protocol: Document 09/10/23 07:35 LRN (Rec: 09/10/23 08:18 LRN [id number]) Shoulder Strength Shoulder Manual Muscle Testing Right Abduction (C5) 3 Fair External Rotation 4+ Good+ Internal Rotation 4+ Good+ Comments Except as indicated above strength is 5/5 in major muscle groups. Left Comments Strength is 5/5 in major muscle groups. PT-OP-Q Treatments Start: 09/05/23 17:27 Freq: Status: Active Protocol: Document 10/18/23 07:33 SP (Rec: 10/18/23 08:17 SP [id number]) Cardio Equipment Upper Body Ergometer (UBE) Duration (Minutes) 6 Seat Position 13 Height 4.5 Other 50RPMs, 1 min f/b alternating Therapeutic Exercises Prone Exercises T, Ys Prone Exercise Name added to HEP Side bilateral Resistance AROM Ys, 5# DB Ts Equipment Used over 65cm Tball Reps/Minutes 2x10 reps each, rest between Comments cued TA no LB arch Sitting Exercises eccentric FF & ABD Sitting Exercise Name reviewed HEP declined HO Side right Resistance TB #6 purple, anchored approx height of hand/forearm extended when sitting Equipment Used chair Reps/Minutes 10 SH x5 reps Comments good form WNL ROM both direction Standing Exercises IR stretch Standing Exercise Name reviewed self stretch Side right Equipment Used towel Reps/Minutes 15 SH x3 Comments cued across back 1st then up / c towel support abd ER Standing Exercise Name 1. IR, eccentric ER 2. abd ER eccentric IR: reviewed HEP- declined HO Side right Resistance TB #2>3 redding green Reps/Minutes x15 each Comments occ tactile cue maintain abd 90deg, pnfree bicep stretch Standing Exercise Name reviewed self stretch Side right Equipment Used wall hand anchored at wall, trunk rotation L Reps/Minutes 20 SH Comments good stretch response, no pain Other Exercises throwing, golf swing Other Exercise Name assessment form and if having pain for goal 10/18/23 Side right Equipment Used golf club, bouncy ball into blue mat Comments no pain golf swing, reports low level pain over bicep throwing PT-OP-R Modalities Start: 09/05/23 17:27 Freq: Status: Active Protocol: Document 10/08/23 07:30 SP (Rec: 10/08/23 08:19 SP [id number]) Ultrasound Therapy Treatment R shld Patient Position Supine Frequency Setting (mHz) 3 Duty Cycle 50% Intensity Setting (w/cm2) 1.5 Comments prox bicep, distal pec PT-OP-T Assessment and Plan Start: 09/05/23 17:27 Freq: Status: Active Protocol: Document 10/18/23 07:33 SP (Rec: 10/18/23 08:17 SP [id number]) Physical Therapy Assessment Goals Three Impairment Decreased R shoulder strength Impairment R shoulder strength is 5/5 except AB 3/5, ER & IR 4+/5 Brick Setter Operator Goal (LTG) Improve R shoulder strength with pt able to work at his prior level of function without pain. 10/18/23: PRogressing noted about 1 hr after yard work and throwing ball with dog resting in chair mid bicep hurting some but went away. LTG Duration 10 wks-11/22/23 progressing Two Impairment Decreased R shoulder AROM due to pain. Impairment Sitting (in deg's): Flex 137 R , 160 R; AB 148 R, 158 L; ER ( 0 deg's AB) 57 R, 62 L; IR T12 R, T10 L. Short Term Goal (STG) Improve R scapulohumeral rhythm with pt able to perform R shoulder AROM without pain. 10/18/23: GOAL MET: no pain into FROM now. STG Duration 4 wks-10/11/23 GOAL MET Brick Setter Operator Goal (LTG) Improve R shoulder ROM with pt able to throw a baseball and golf with minimal to no discomfort. 09/26/23: As measured by Vivien Howard 09/20/23: 141 deg AROM right shoulder flexion (?seated/sup) and 135 deg post shoulder ER and IR with band. 10/14/23: added wall wt ball 90 /90, con & eccentric abd/ir & er TB. 10/18/23: Progressing no pain with swinging golf club in PT, hasn't gone golfing yet, throwing ball into mat in PT little pain in mid bicep but throws tennis ball into wall home and loosens up but not full strength at outside wall home. R shld: FF 152, ABD 162 , ER 79, IR T12. L shld: FF 158, ABD 172 , ER 75, IR T10 LTG Duration 10 wks-11/22/23 progressing One Impairment Pt lacks appropriate self care HEP Short Term Goal (STG) Pt will be educated in self care pain management (RICE) technique and positioning in partial sidelie for nighttime pain relief. 09/12/23: Pt educated in RICE technique. 09/26/23: Some mornings has stiffness in R shdr when waking but resovles once up walking. Positional traninng given for best R shoulder supported positions. STG Duration 4 wks-10/11/23 (09/26/23: MET GOAL) Brick Setter Operator Goal (LTG) Pt will be independent in a self care HEP of R shoulder/ scapula strengthening exercises and neck/R shoulder ROM ex's. 09/26/23: On 09/10/23 HEP of: Scap retract/depression & TB shdr ER/IR. Issued Lev 2 TB. On 09/12/23 HEP: C/S AROM stretching. On 09/20/23: HEP of Sidelying IR AROM, seated body over UE PROM ER and seated AROM ER 10/18/23: progressing wall ball , stand abd ER /c TB, PRone Ts wt and Ys AROM. LTG Duration 10 wks-11/22/23 progressed . Progress Towards Goals Progress Comments MET STG #2, progressin in rest . Gaining ROM Abdulkadir. Assessment Summary Assessment Pt good response to tiring response to abd IR and ER and initiated prone over tball ( has home) no pain. Continued good feedback assisted TB stretch into FF and ABD rear facing sitting. Physical Therapy Plan Frequency and Duration Frequency of Treatment 2x/Week Duration of treatment (weeks) 10 Plan of Care Start Date 09/10/23 Plan of Care End Date 11/22/23 Therapeutic Interventions Therapeutic Interventions Home Exercise Program,Joint Mobilizations,Manual Therapy, Neuromuscular Re-education, Self-Care/Home Management,Soft Tissue Mobilization,Taping, Therapeutic Activities, Therapeutic Exercises Modalities Cold Pack/Ice Massage,Electric Stimulation,Hot Packs, Ultrasound Next Visit Focus/Plan Next Note Type Treatment Note Next Visit Plan Assess if performing IR stretch, response to prone Ts, Ys added last tx. Add IR belly press. Next try resisted D2 flexion stand vs supine bridged over 65 cm tball. POC: More scapulo humeral rhythm, scap stab strengthening, ?JMT; less STM. Pt to focus on self STMs/C. ROM. Ex: R shoulder ROM and strengthening. Try K-taping for R impingement syndrome if not allergic to latex. POC: Scapular stabilization and RC strengthening f/b R shoulder ROM ex's along with core stabilization.
--- NOTE | 2023-10-22 16:17 | PT.OTN ---
Current Diagnoses Impingement syndrome of right shoulder (10/22/23) Strain of unspecified muscle, fascia and tendon at shoulder and upper arm level, right arm, subsequent encounter (10/22/23) Civilian activity done for income or pay (10/22/23) Physical Therapy Treatment Note PT-OP-A Visit Information Start: 09/05/23 17:27 Freq: Status: Active Protocol: Document 10/22/23 08:19 LRN (Rec: 10/22/23 09:01 LRN [id number]) Out-Patient Physical Therapy Visit Information Visit Information Visit Type Progress Note Visit Start Time 09:19 Visit Stop Time 09:01 Visit Number 01/15 Number of 3RD MATE Visits 4 Evaluation Information Evaluation Date 09/10/23 Precautions Precautions Per intake form: hearing problems, arthritis, neck & back pain. PT-OP-B Current Condition Start: 09/05/23 17:27 Freq: Status: Active Protocol: Document 09/10/23 07:35 LRN (Rec: 09/10/23 08:18 LRN [id number]) Current Condition History of Current Condition Onset Date 2022 Current Complaints R shdr pain with reaching forward History of Current Condition Pt reports he was pulling wire overhead and the next morning couldn't lift his arm because of pain at the posterior R shoulder joint and if leaning on the elbow in his car, he has pain in the same location. States he is getting a little better because he can lift his arm, but feels a strain at ~30 deg's AB of the arm, and feels something is catching when he reaches to turn his radio on in his car. He denies pain with lifting. Pt reports no prior history of pain. 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 Pt is R handed. Every once in awhile he has pain with sleeping while on the R shoulder. His pain is relieved by turning to the other side and resting his arm on a pillow. Prior Treatments and Tests Pt reports X-rays taken were negative for bony changes. Future Testing and Treatments Planned None Treatment Goals Patient/Caregiver Goals Pt goal's: - learning self care to help make shoulder stronger - be able to work at prior level of function (Full painfree ROM for: throwing baseball and golfing). 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 PT-OP-C Subjective Start: 09/05/23 17:27 Freq: Status: Active Protocol: Document 10/22/23 08:19 LRN (Rec: 10/22/23 09:01 LRN [id number]) OP-PT Subjective Patient Comments Patient Comments Pain stretching arm behind back. No pain at work. Biceps pain is with throwing. Sometimes the R shoulder pops tossing things, but no pain. Crepitus noted in biceps tendon groove on humeral head . PT-OP-E Functional Tests Start: 09/05/23 17:27 Freq: Status: Active Protocol: Document 09/10/23 07:35 LRN (Rec: 09/10/23 08:18 LRN [id number]) Functional Tests Apley's Scratch Test Action 1- Left Below spine of scapula Action 1- Right On spine of scapula Action 2- Left T2 Action 2- Right T2 Action 3- Left T10 Action 3- Right T12 PT-OP-H Neuro Start: 09/05/23 17:27 Freq: Status: Active Protocol: Document 09/10/23 07:35 LRN (Rec: 09/10/23 08:18 LRN [id number]) Sensation Evaluation Gross Sensation Gross Sensation WNL PT-OP-J Posture/Palpation/Skin Start: 09/05/23 17:27 Freq: Status: Active Protocol: Document 09/10/23 07:35 LRN (Rec: 09/10/23 08:18 LRN [id number]) Posture Evaluation Position Standing Shoulder Posture (R) Rounded,(R) Forward,(R) Elevated Scapula Posture (R) Depressed Arm Posture (L) Internally Rotated,(R) Internally Rotated Knee Posture (L) Genu Varus,(R) Genu Varus Comments Posture Comments Neck shifted left, increased lordosis, protruding abdomen, atrophy of R dominant shoulder ms (UT, Supr, infra, Teres Major & Minor, Deltoids) Palpation Assessment Location R shoulder Palpation Location Tender Minor > Teres jason Palpation Findings Tenderness PT-OP-K Range of Motion Start: 09/05/23 17:27 Freq: Status: Active Protocol: Document 09/20/23 08:06 AB (Rec: 09/20/23 10:02 AB [id number]) Shoulder Goniometric Range of Motion Shoulder Right Active Shoulder ROM WFL No Testing Position Standing Flexion 135 Comments end of session PT-OP-L Special Tests Start: 09/05/23 17:27 Freq: Status: Active Protocol: Document 09/12/23 08:19 LRN (Rec: 09/12/23 09:10 LRN [id number]) Special Tests Shoulder Special Tests [place] Test Test Results ? positive Comments Click felt once, then was not able to reproduce. PT-OP-M Strength Start: 09/05/23 17:27 Freq: Status: Active Protocol: Document 10/22/23 08:19 LRN (Rec: 10/22/23 09:01 LRN [id number]) Shoulder Strength Shoulder Manual Muscle Testing Right Flexion 5 Normal Abduction (C5) 4+ Good+ External Rotation 4+ Good+ Internal Rotation 4+ Good+ Comments Tension felt with ER, otherwise no pain/discomfort. PT-OP-Q Treatments Start: 09/05/23 17:27 Freq: Status: Active Protocol: Document 10/22/23 08:19 LRN (Rec: 10/22/23 09:01 LRN [id number]) Cardio Equipment Upper Body Ergometer (UBE) Duration (Minutes) 7 RPM 50 Seat Position 13 Height 4.5 Other Alternating every 1 min Therapeutic Exercises Prone Exercises T, Ys Prone Exercise Name MWM of R scapula proper SHR with movement Side bilateral Resistance AROM Ys Equipment Used over 65cm Tball Reps/Minutes 10' Comments Cued R scapula Sitting Exercises eccentric FF & ABD Sitting Exercise Name Elbow unplanted an planted in 90/90 positioning Side right Resistance TB #6, anchored approx height of hand/forearm extended when sitting Equipment Used chair Reps/Minutes 10' Comments Tried several diff positions of arms and support to L side to max R work Standing Exercises Lat pull down Standing Exercise Name Abdulkadir Up high and R only @ shoulder hgt w/guidance to R scapula Side right Reps/Minutes 10x 3, & 4x 15 respectively ( 15') Comments Cued infer trap w/MWM to scapula, & cuing for rhomboid & infer trap contrac PT-OP-R Modalities Start: 09/05/23 17:27 Freq: Status: Active Protocol: Document 10/08/23 07:30 SP (Rec: 10/08/23 08:19 SP [id number]) Ultrasound Therapy Treatment R shld Patient Position Supine Frequency Setting (mHz) 3 Duty Cycle 50% Intensity Setting (w/cm2) 1.5 Comments prox bicep, distal pec PT-OP-T Assessment and Plan Start: 09/05/23 17:27 Freq: Status: Active Protocol: Document 10/22/23 08:19 LRN (Rec: 10/22/23 09:01 LRN [id number]) Physical Therapy Assessment Rehab Potential Rehabilitation Potential Good Evaluation Complexity Number of Personal Factors/Comorbidities 1-2 Number of Body Systems Impaired 4 or More Clinical Presentation at Evaluation Evolving Impairments Impairments Activity Tolerance,Pain, Posture,ROM,Strength Goals Three Impairment Decreased R shoulder strength Impairment R shoulder strength is 5/5 except AB 3/5, ER & IR 4+/5 Technology Development Intern Goal (LTG) Improve R shoulder strength with pt able to work at his prior level of function without pain. 10/18/23: PRogressing noted about 1 hr after yard work and throwing ball with dog resting in chair mid bicep hurting some but went away. 10/22/23: Pt only has pain at work or home when tossing an object. Pain is at biceps tendon at bicipital groove. LTG Duration 10 wks-11/22/23 progressing 10/22/23 Two Impairment Decreased R shoulder AROM due to pain. Impairment Sitting (in deg's): Flex 137 R , 160 R; AB 148 R, 158 L; ER ( 0 deg's AB) 57 R, 62 L; IR T12 R, T10 L. Short Term Goal (STG) Improve R scapulohumeral rhythm with pt able to perform R shoulder AROM without pain. 10/18/23: GOAL MET: no pain into FROM now. STG Duration 4 wks-10/11/23 (GOAL MET ) Usp Goal (LTG) Improve R shoulder ROM with pt able to throw a baseball and golf with minimal to no discomfort. 09/26/23: As measured by Vivien Howard 09/20/23: 141 deg AROM right shoulder flexion (?seated/sup) and 135 deg post shoulder ER and IR with band. 10/14/23: added wall wt ball 90 /90, con & eccentric abd/ir & er TB. 10/18/23: Progressing no pain with swinging golf club in PT, hasn't gone golfing yet, throwing ball into mat in PT little pain in mid bicep but throws tennis ball into wall home and loosens up but not full strength at outside wall home. R shld: FF 152, ABD 162 , ER 79, IR T12. L shld: FF 158, ABD 172 , ER 75, IR T10. 10/22/23: Pain in biceps throwing ball for dog unless does warm up first by tossing ball into wall. Not yet golfed. LTG Duration 10 wks-11/22/23 progressing 10/22/23 One Impairment Pt lacks appropriate self care HEP Short Term Goal (STG) Pt will be educated in self care pain management (RICE) technique and positioning in partial sidelie for nighttime pain relief. 09/12/23: Pt educated in RICE technique. 09/26/23: Some mornings has stiffness in R shdr when waking but resovles once up walking. Positional traninng given for best R shoulder supported positions. STG Duration 4 wks-10/11/23 (09/26/23: MET GOAL) Usp Goal (LTG) Pt will be independent in a self care HEP of R shoulder/ scapula strengthening exercises and neck/R shoulder ROM ex's. 09/26/23: On 09/10/23 HEP of: Scap retract/depression & TB shdr ER/IR. Issued Lev 2 TB. On 09/12/23 HEP: C/S AROM stretching. On 09/20/23: HEP of Sidelying IR AROM, seated body over UE PROM ER and seated AROM ER 10/18/23: progressing wall ball , stand abd ER /c TB, PRone Ts wt and Ys AROM. LTG Duration 10 wks-11/22/23 progressed . Assessment Summary Assessment 58 yo male w/R shoulder impingement, scapular dysfunction of most notably R lower trap/Rhomboid major, possibly Teres minor/major, or Infraspinatus muscle. Today he demonstrates poor R scapulohumeral rhythm with shoulder flexion and with ex's , indicating weakness of lower trap and rhomboid major. With palpation, his pain appears to be at the bicipital groove. Shoulder strength is good, pain is primarily with throwing a ball and with biceps pain with shoulder exercise (at bicipital groove) . Further skilled physical therapy is recommended to relieve pain at R bicipital groove with tossing of objects and improving R scapulo humeral rhythm and bicep strengthening. Physical Therapy Plan Frequency and Duration Frequency of Treatment 2x/Week Duration of treatment (weeks) 10 Plan of Care Start Date 09/10/23 Plan of Care End Date 11/22/23 Therapeutic Interventions Therapeutic Interventions Home Exercise Program,Joint Mobilizations,Manual Therapy, Neuromuscular Re-education, Self-Care/Home Management,Soft Tissue Mobilization,Taping, Therapeutic Activities, Therapeutic Exercises Modalities Cold Pack/Ice Massage,Hot Packs,Ultrasound Next Visit Focus/Plan Next Note Type Treatment Note Next Visit Plan Check IR stretch, focus on contraction of R rhomboid major and lower trap with ex's for proper scapuolohumeral rhythm. Add Ultrasound to R biceps tendon at bicipital groove for control of inflammation. Try resisted D2 flexion stand vs supine bridged over 65 cm tball with focus on R scapulohumeral movement. Try progressing bicep strengthening. POC: More scapulo humeral rhythm, scap stab strengthening, ?JMT; less STM. Pt to focus on self STMs/C. ROM. POC: Improving R SHR and RC strengthening f/b R shoulder ROM ex's along with core stabilization and treatment to reduce bicep tendon pain with tossing of objects. Bicep strengthening.
--- NOTE | 2023-10-25 08:16 | PT.OTN ---
Current Diagnoses Impingement syndrome of right shoulder (10/25/23) Strain of unspecified muscle, fascia and tendon at shoulder and upper arm level, right arm, subsequent encounter (10/25/23) Civilian activity done for income or pay (10/25/23) Physical Therapy Treatment Note PT-OP-A Visit Information Start: 09/05/23 17:27 Freq: Status: Active Protocol: Document 10/25/23 07:36 SP (Rec: 10/25/23 08:20 SP [id number]) Out-Patient Physical Therapy Visit Information Visit Information Visit Type Treatment Note Visit Note *Sent message this tx to Ins staff at asking about more approved visits >12. Only 2 more alloted but more are scheduled. CHeck 10/28 appt if can get more approved from [facility] if needed. Visit Start Time 07:36 Visit Stop Time 08:16 Visit Number 10/ Number of MEDICAL ONCOLOGY PHYSICIAN Visits 1 Evaluation Information Evaluation Date 09/10/23 Precautions Precautions Per intake form: hearing problems, arthritis, neck & back pain. PT-OP-B Current Condition Start: 09/05/23 17:27 Freq: Status: Active Protocol: Document 09/10/23 07:35 LRN (Rec: 09/10/23 08:18 LRN [id number]) Current Condition History of Current Condition Onset Date 2022 Current Complaints R shdr pain with reaching forward History of Current Condition Pt reports he was pulling wire overhead and the next morning couldn't lift his arm because of pain at the posterior R shoulder joint and if leaning on the elbow in his car, he has pain in the same location. States he is getting a little better because he can lift his arm, but feels a strain at ~30 deg's AB of the arm, and feels something is catching when he reaches to turn his radio on in his car. He denies pain with lifting. Pt reports no prior history of pain. 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 Every once in awhile he has pain with sleeping while on the R shoulder. His pain is relieved by turning to the other side and resting his arm on a pillow. Prior Treatments and Tests Pt reports X-rays taken were negative for bony changes. Future Testing and Treatments Planned None Treatment Goals Patient/Caregiver Goals Pt goal's: - learning self care to help make shoulder stronger - be able to work at prior level of function (Full painfree ROM for: throwing baseball and golfing). 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 PT-OP-C Subjective Start: 09/05/23 17:27 Freq: Status: Active Protocol: Document 10/25/23 07:36 SP (Rec: 10/25/23 08:20 SP [id number]) OP-PT Subjective Patient Comments Patient Comments Pt reports was sore after last tx. Woke up stiff and sore but shower and stretching si fine. He did some wall ball and loosened things up. Is compliant with HEP. Got his tball and performing ex. PT-OP-E Functional Tests Start: 09/05/23 17:27 Freq: Status: Active Protocol: Document 09/10/23 07:35 LRN (Rec: 09/10/23 08:18 LRN [id number]) Functional Tests Apley's Scratch Test Action 1- Left Below spine of scapula Action 1- Right On spine of scapula Action 2- Left T2 Action 2- Right T2 Action 3- Left T10 Action 3- Right T12 PT-OP-H Neuro Start: 09/05/23 17:27 Freq: Status: Active Protocol: Document 09/10/23 07:35 LRN (Rec: 09/10/23 08:18 LRN [id number]) Sensation Evaluation Gross Sensation Gross Sensation WNL PT-OP-J Posture/Palpation/Skin Start: 09/05/23 17:27 Freq: Status: Active Protocol: Document 09/10/23 07:35 LRN (Rec: 09/10/23 08:18 LRN [id number]) Posture Evaluation Position Standing Shoulder Posture (R) Rounded,(R) Forward,(R) Elevated Scapula Posture (R) Depressed Arm Posture (L) Internally Rotated,(R) Internally Rotated Knee Posture (L) Genu Varus,(R) Genu Varus Comments Posture Comments Neck shifted left, increased lordosis, protruding abdomen, atrophy of R dominant shoulder ms (UT, Supr, infra, Teres Major & Minor, Deltoids) Palpation Assessment Location R shoulder Palpation Location Tender Minor > Teres jason Palpation Findings Tenderness PT-OP-K Range of Motion Start: 09/05/23 17:27 Freq: Status: Active Protocol: Document 09/20/23 08:06 AB (Rec: 09/20/23 10:02 AB [id number]) Shoulder Goniometric Range of Motion Shoulder Right Active Shoulder ROM WFL No Testing Position Standing Flexion 135 Comments end of session PT-OP-L Special Tests Start: 09/05/23 17:27 Freq: Status: Active Protocol: Document 09/12/23 08:19 LRN (Rec: 09/12/23 09:10 LRN [id number]) Special Tests Shoulder Special Tests [place] Test Test Results ? positive Comments Click felt once, then was not able to reproduce. PT-OP-M Strength Start: 09/05/23 17:27 Freq: Status: Active Protocol: Document 10/22/23 08:19 LRN (Rec: 10/22/23 09:01 LRN [id number]) Shoulder Strength Shoulder Manual Muscle Testing Right Flexion 5 Normal Abduction (C5) 4+ Good+ External Rotation 4+ Good+ Internal Rotation 4+ Good+ Comments Tension felt with ER, otherwise no pain/discomfort. PT-OP-Q Treatments Start: 09/05/23 17:27 Freq: Status: Active Protocol: Document 10/25/23 07:36 SP (Rec: 10/25/23 08:20 SP [id number]) Therapeutic Exercises Supine Exercises tball Supine Exercise Name D2 flexion (Y), HABD (T)- added toHEP- declined HO Side right Resistance AROM>5#db (lowest wt home) Reps/Minutes x10 Comments feels fine Ts, little tension Ys but not pain Prone Exercises T, Ys Prone Exercise Name MWM of R scapula proper SHR with movement Side bilateral Resistance AROM Ys Equipment Used over 55cm Tball (size home) Reps/Minutes x10 reps Comments reported little tension over prox R bicep but not pain- tactile cue scap Standing Exercises Ys off wall Standing Exercise Name added to HEP Side bilateral Resistance Tb #2 Reps/Minutes x10 (home 2x10) Comments reports good effort pnfree PT-OP-R Modalities Start: 09/05/23 17:27 Freq: Status: Active Protocol: Document 10/25/23 07:36 SP (Rec: 10/25/23 08:20 SP [id number]) Ultrasound Therapy Treatment R shld Patient Position Supine Frequency Setting (mHz) 3 Duty Cycle 50% Intensity Setting (w/cm2) 1.5 Comments prox bicep, distal pec PT-OP-T Assessment and Plan Start: 09/05/23 17:27 Freq: Status: Active Protocol: Document 10/25/23 07:36 SP (Rec: 10/25/23 08:20 SP [id number]) Physical Therapy Assessment Goals Three Impairment Decreased R shoulder strength Impairment R shoulder strength is 5/5 except AB 3/5, ER & IR 4+/5 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 10/18/23: PRogressing noted about 1 hr after yard work and throwing ball with dog resting in chair mid bicep hurting some but went away. 10/22/23: Pt only has pain at work or home when tossing an object. Pain is at biceps tendon at bicipital groove. LTG Duration 10 wks-11/22/23 progressing 10/22/23 Two Impairment Decreased R shoulder AROM due to pain. Impairment Sitting (in deg's): Flex 137 R , 160 R; AB 148 R, 158 L; ER ( 0 deg's AB) 57 R, 62 L; IR T12 R, T10 L. Short Term Goal (STG) Improve R scapulohumeral rhythm with pt able to perform R shoulder AROM without pain. 10/18/23: GOAL MET: no pain into FROM now. STG Duration 4 wks-10/11/23 (GOAL MET ) Senior Living Goal (LTG) Improve R shoulder ROM with pt able to throw a baseball and golf with minimal to no discomfort. 09/26/23: As measured by Vivien Howard 09/20/23: 141 deg AROM right shoulder flexion (?seated/sup) and 135 deg post shoulder ER and IR with band. 10/14/23: added wall wt ball 90 /90, con & eccentric abd/ir & er TB. 10/18/23: Progressing no pain with swinging golf club in PT, hasn't gone golfing yet, throwing ball into mat in PT little pain in mid bicep but throws tennis ball into wall home and loosens up but not full strength at outside wall home. R shld: FF 152, ABD 162 , ER 79, IR T12. L shld: FF 158, ABD 172 , ER 75, IR T10. 10/22/23: Pain in biceps throwing ball for dog unless does warm up first by tossing ball into wall. Not yet golfed. LTG Duration 10 wks-11/22/23 progressing 10/22/23 One Impairment Pt lacks appropriate self care HEP Short Term Goal (STG) Pt will be educated in self care pain management (RICE) technique and positioning in partial sidelie for nighttime pain relief. 09/12/23: Pt educated in RICE technique. 09/26/23: Some mornings has stiffness in R shdr when waking but resovles once up walking. Positional traninng given for best R shoulder supported positions. 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 09/26/23: On 09/10/23 HEP of: Scap retract/depression & TB shdr ER/IR. Issued Lev 2 TB. On 09/12/23 HEP: C/S AROM stretching. On 09/20/23: HEP of Sidelying IR AROM, seated body over UE PROM ER and seated AROM ER 10/18/23: progressing wall ball , stand abd ER /c TB, PRone Ts wt and Ys AROM. 10/25/23: supine tball D2 flexion & HABD AROM>5# DB, stand TB Y off wall. LTG Duration 10 wks-11/22/23 progressed . Assessment Summary Assessment Pt tolerated tx well, reports little tension over proximal R bicep during overhead movements AROM and with resistance no difference, not pain. Provided US for support inflammation reduction, felt fine/not much of anything, reports not feel significant change tension reduction during ex after. Ther ex focused on continued LT and rhomboid strenghtening in painfree positioning and resistance tolerated. Added supine over tball Scaption ( slight tension prox R bicep) and HABD felt fine) and standing resisted scaption off wall (felt fine) with no pain reported. Discussed with pt to call physician and ask for more continued PT visits, can ask for our PN to support continuing into Novemberide POC. Physical Therapy Plan Frequency and Duration Frequency of Treatment 2x/Week Duration of treatment (weeks) 10 Plan of Care Start Date 09/10/23 Plan of Care End Date 11/22/23 Therapeutic Interventions Therapeutic Interventions Home Exercise Program,Joint Mobilizations,Manual Therapy, Neuromuscular Re-education, Self-Care/Home Management,Soft Tissue Mobilization,Taping, Therapeutic Activities, Therapeutic Exercises Modalities Cold Pack/Ice Massage,Hot Packs,Ultrasound Next Visit Focus/Plan Next Note Type Treatment Note Next Visit Plan 2 approved visits left (PT then MEDICAL ONCOLOGY PHYSICIAN). Check if got approved more? Next tx: Recheck response of focus on contraction of R rhomboid major and lower trap with ex's for proper scapuolohumeral rhythm: D2 flexion stand vs supine bridged over 55 cm tball(what has home) with focus on R scapulohumeral movement. US to R biceps tendon at bicipital groove for control of inflammation last tx. Suggest continue Try progressing bicep strengthening. Check IR stretch. POC: More scapulo humeral rhythm, scap stab strengthening, ?JMT; less STM. Pt to focus on self STMs/C. ROM. POC: Improving R SHR and RC strengthening f/b R shoulder ROM ex's along with core stabilization and treatment to reduce bicep tendon pain with tossing of objects. Bicep strengthening.
--- NOTE | 2023-10-29 09:45 | PT.OTN ---
Current Diagnoses Impingement syndrome of right shoulder (10/29/23) Strain of unspecified muscle, fascia and tendon at shoulder and upper arm level, right arm, subsequent encounter (10/29/23) Civilian activity done for income or pay (10/29/23) Physical Therapy Treatment Note PT-OP-A Visit Information Start: 09/05/23 17:27 Freq: Status: Active Protocol: Document 10/29/23 08:20 LRN (Rec: 10/29/23 09:43 LRN [id number]) Out-Patient Physical Therapy Visit Information Visit Information Visit Type Progress Note Visit Start Time 08:20 Visit Stop Time 09:00 Visit Number 03/17 Evaluation Information Evaluation Date 09/10/23 Precautions Precautions Per intake form: hearing problems, arthritis, neck & back pain. PT-OP-B Current Condition Start: 09/05/23 17:27 Freq: Status: Active Protocol: Document 09/10/23 07:35 LRN (Rec: 09/10/23 08:18 LRN [id number]) Current Condition History of Current Condition Onset Date 2022 Current Complaints R shdr pain with reaching forward History of Current Condition Pt reports he was pulling wire overhead and the next morning couldn't lift his arm because of pain at the posterior R shoulder joint and if leaning on the elbow in his car, he has pain in the same location. States he is getting a little better because he can lift his arm, but feels a strain at ~30 deg's AB of the arm, and feels something is catching when he reaches to turn his radio on in his car. He denies pain with lifting. Pt reports no prior history of pain. 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 Pt is R handed. Every once in awhile he has pain with sleeping while on the R shoulder. His pain is relieved by turning to the other side and resting his arm on a pillow. Prior Treatments and Tests Pt reports X-rays taken were negative for bony changes. Future Testing and Treatments Planned None Treatment Goals Patient/Caregiver Goals Pt goal's: - learning self care to help make shoulder stronger - be able to work at prior level of function (Full painfree ROM for: throwing baseball and golfing). 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 PT-OP-C Subjective Start: 09/05/23 17:27 Freq: Status: Active Protocol: Document 10/29/23 08:20 LRN (Rec: 10/29/23 09:43 LRN [id number]) OP-PT Subjective Patient Comments Patient Comments No changes. Having no pain. Has occasional snaps and pops w/o pain. No pain at work, but hasn't had to toss anything to co-workers. Has tossed a ball to wall w/o pain . Has thrown ball to dog w/o pain after stretching and exercise. Patient Questionnaires Quick Dash- Upper Extremity Quick Dash UE Score 9.09 Quick Dash UE Impairment 1 to 19% Impaired (Score 1-19) OP-PT Pain Assessment Pain Assessment Grid Paper Pain Assessment Grid Completed Yes Location R anterior brachium Pain Location Details R biceps Intensity 4 Scale Used Numeric (0 - 10) Description Aching,Sharp,With Movement Pain Duration Brief after adjusting position . R posterior shoulder Pain Location Details R Teres Minor/Major Intensity 0 Scale Used Numeric (0 - 10) PT-OP-E Functional Tests Start: 09/05/23 17:27 Freq: Status: Active Protocol: Document 09/10/23 07:35 LRN (Rec: 09/10/23 08:18 LRN [id number]) Functional Tests Apley's Scratch Test Action 1- Left Below spine of scapula Action 1- Right On spine of scapula Action 2- Left T2 Action 2- Right T2 Action 3- Left T10 Action 3- Right T12 PT-OP-H Neuro Start: 09/05/23 17:27 Freq: Status: Active Protocol: Document 09/10/23 07:35 LRN (Rec: 09/10/23 08:18 LRN [id number]) Sensation Evaluation Gross Sensation Gross Sensation WNL PT-OP-J Posture/Palpation/Skin Start: 09/05/23 17:27 Freq: Status: Active Protocol: Document 09/10/23 07:35 LRN (Rec: 09/10/23 08:18 LRN [id number]) Posture Evaluation Position Standing Shoulder Posture (R) Rounded,(R) Forward,(R) Elevated Scapula Posture (R) Depressed Arm Posture (L) Internally Rotated,(R) Internally Rotated Knee Posture (L) Genu Varus,(R) Genu Varus Comments Posture Comments Neck shifted left, increased lordosis, protruding abdomen, atrophy of R dominant shoulder ms (UT, Supr, infra, Teres Major & Minor, Deltoids) Palpation Assessment Location R shoulder Palpation Location Tender Minor > Teres jason Palpation Findings Tenderness PT-OP-K Range of Motion Start: 09/05/23 17:27 Freq: Status: Active Protocol: Document 10/29/23 08:20 LRN (Rec: 10/29/23 09:43 LRN [id number]) Shoulder Goniometric Range of Motion Shoulder Right Active Testing Position Sitting Flexion 148 Extension 54 Abduction 167 External Rotation at 0 degrees Abduction 65 Internal Rotation Behind Back (text) T11 Left Active Shoulder ROM WFL Yes Testing Position Sitting Flexion 157 Extension 54 Abduction 170 External Rotation at 0 degrees Abduction 65 Internal Rotation Behind Back (text) T10 PT-OP-L Special Tests Start: 09/05/23 17:27 Freq: Status: Active Protocol: Document 09/12/23 08:19 LRN (Rec: 09/12/23 09:10 LRN [id number]) Special Tests Shoulder Special Tests [place] Test Test Results ? positive Comments Click felt once, then was not able to reproduce. PT-OP-M Strength Start: 09/05/23 17:27 Freq: Status: Active Protocol: Document 10/29/23 08:20 LRN (Rec: 10/29/23 09:43 LRN [id number]) Shoulder Strength Shoulder Manual Muscle Testing Right Flexion 5 Normal Abduction (C5) 3+ Fair+ External Rotation 4+ Good+ Internal Rotation 4+ Good+ Comments Pain with AB. PT-OP-Q Treatments Start: 09/05/23 17:27 Freq: Status: Active Protocol: Document 10/29/23 08:20 LRN (Rec: 10/29/23 09:43 LRN [id number]) Therapeutic Exercises Supine Exercises R shoulder stretch Supine Exercise Name Shoulder flex Side bilateral Equipment Used cane, 4# Reps/Minutes 5' Sitting Exercises Shoulder AROM Sitting Exercise Name flex, ext, AB, ER, IR Side bilateral Reps/Minutes 2x each Comments AROM taken on 2nd stretch Standing Exercises Lat pull down Standing Exercise Name Abdulkadir Up high and R only @ shoulder hgt w/guidance to R scapula Side right Reps/Minutes 10' , alternating with ball toss Comments Cued infer trap w/MWM to scapula, & cuing for rhomboid & infer trap contrac IR stretch Standing Exercise Name Done in sitting Side right Reps/Minutes 3' wall ball Standing Exercise Name tossing racquetball into mat & tossing 2 tennis balls upward Resistance Extra time for set up. Equipment Used racquet ball & 2 tennis balls tied together w/TB Reps/Minutes 10' Comments alternating with lat pull down PT-OP-R Modalities Start: 09/05/23 17:27 Freq: Status: Active Protocol: Document 10/25/23 07:36 SP (Rec: 10/25/23 08:20 SP [id number]) Ultrasound Therapy Treatment R shld Patient Position Supine Frequency Setting (mHz) 3 Duty Cycle 50% Intensity Setting (w/cm2) 1.5 Comments prox bicep, distal pec PT-OP-T Assessment and Plan Start: 09/05/23 17:27 Freq: Status: Active Protocol: Document 10/29/23 08:20 LRN (Rec: 10/29/23 09:43 LRN [id number]) Physical Therapy Assessment Rehab Potential Rehabilitation Potential Good Evaluation Complexity Number of Personal Factors/Comorbidities 1-2 Number of Body Systems Impaired 4 or More Clinical Presentation at Evaluation Evolving Impairments Impairments Activity Tolerance,Pain, Posture,ROM,Strength Goals Three Impairment Decreased R shoulder strength Impairment R shoulder strength is 5/5 except AB 3/5, ER & IR 4+/5 Long-Term Goal (LTG) Improve R shoulder strength with pt able to work at his prior level of function without pain. 10/18/23: PRogressing noted about 1 hr after yard work and throwing ball with dog resting in chair mid bicep hurting some but went away. 10/22/23: Pt only has pain at work or home when tossing an object. Pain is at biceps tendon at bicipital groove. 10/29/23: Flex 5/5, AB 3/5 w/ pain, ER/IR 4+/5 without pain. LTG Duration 8 wks-12/27/23 progressing 10/29/23 Two Impairment Decreased R shoulder AROM due to pain. Impairment Sitting (in deg's): Flex 137 R , 160 R; AB 148 R, 158 L; ER ( 0 deg's AB) 57 R, 62 L; IR T12 R, T10 L. Short Term Goal (STG) Improve R scapulohumeral rhythm with pt able to perform R shoulder AROM without pain. 10/18/23: GOAL MET: no pain into FROM now. STG Duration 4 wks-10/11/23 (GOAL MET ) Long-Term Goal (LTG) Improve R shoulder ROM with pt able to throw a baseball and golf with minimal to no discomfort. 09/26/23: As measured by Vivien Howard 09/20/23: 141 deg AROM right shoulder flexion (?seated/sup) and 135 deg post shoulder ER and IR with band. 10/14/23: added wall wt ball 90 /90, con & eccentric abd/ir & er TB. 10/18/23: Progressing no pain with swinging golf club in PT, hasn't gone golfing yet, throwing ball into mat in PT little pain in mid bicep but throws tennis ball into wall home and loosens up but not full strength at outside wall home. R shld: FF 152, ABD 162 , ER 79, IR T12. L shld: FF 158, ABD 172 , ER 75, IR T10. 10/22/23: Pain in biceps throwing ball for dog unless does warm up first by tossing ball into wall. Not yet golfed. LTG Duration 8 wks-12/27/23 progressing 10/22/23 One Impairment Pt lacks appropriate self care HEP Short Term Goal (STG) Pt will be educated in self care pain management (RICE) technique and positioning in partial sidelie for nighttime pain relief. 09/12/23: Pt educated in RICE technique. 09/26/23: Some mornings has stiffness in R shdr when waking but resovles once up walking. Positional traninng given for best R shoulder supported positions. 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 09/26/23: On 09/10/23 HEP of: Scap retract/depression & TB shdr ER/IR. Issued Lev 2 TB. On 09/12/23 HEP: C/S AROM stretching. On 09/20/23: HEP of Sidelying IR AROM, seated body over UE PROM ER and seated AROM ER 10/18/23: progressing wall ball , stand abd ER /c TB, PRone Ts wt and Ys AROM. 10/25/23: supine tball D2 flexion & HABD AROM>5# DB, stand TB Y off wall. LTG Duration 8 wks-12/27/23 progressed 10/25/23. Assessment Summary Assessment 58 yo male w/R shoulder impingement, scapular dysfunction of most notably R lower trap/Rhomboid major, possibly Teres minor/major, or Infraspinatus muscle. He is primarily only feeling the impingement with R shdr flex of tossing objects upward. His pain onset is less if cued for proper SHR. US appeared helpful but was not able to use today due to time constraints. The pt's posterior shoulder pain has resolved, but he has anterior brachium pain (biceps) rated 4 /10 with tossing objects; therefore his UE Quickdash score is slightly higher (9.09 ) but % of impairment is the same (1-19% impaired). The pt appears to have rotator cuff dysfunction with slight weakness with shoulder IR/ER and seen with weakness with Abduction (3/5). The pt will benefit from continued skilled physical therapy to improve rotator cuff strength and improve SHR and scapular stability as well as improve core strength. 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 Check if got approved more. Next tx: Improve R shoulder flex, IR ROM. Caution: shoulder AB creates pain- monitor SHR. Recheck response of focus on contraction of R rhomboid major and lower trap with ex's for proper scapuolohumeral rhythm: D2 flexion stand vs supine bridged over 55 cm tball(what has home) with focus on R scapulohumeral movement. US to R biceps tendon at bicipital groove for control of inflammation last tx. Progressing bicep strengthening, with focus on proper SHR & core stab. POC: More scapulo humeral rhythm, scap stab strengthening, ?JMT; less STM. Pt to focus on self STMs/C. ROM. POC: Improving R SHR and RC strengthening f/b R shoulder ROM ex's along with core stabilization and treatment to reduce bicep tendon pain with tossing of objects. Bicep strengthening.
--- NOTE | 2023-11-01 08:14 | PT.OTN ---
Current Diagnoses Impingement syndrome of right shoulder (11/01/23) Strain of unspecified muscle, fascia and tendon at shoulder and upper arm level, right arm, subsequent encounter (11/01/23) Civilian activity done for income or pay (11/01/23) Physical Therapy Treatment Note PT-OP-A Visit Information Start: 09/05/23 17:27 Freq: Status: Active Protocol: Document 11/01/23 07:34 SP (Rec: 11/01/23 08:18 SP [id number]) Out-Patient Physical Therapy Visit Information Visit Information Visit Type Treatment Note Visit Note Awaiting further appt approval after 10/31 appt. 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 PT-OP-B Current Condition Start: 09/05/23 17:27 Freq: Status: Active Protocol: Document 09/10/23 07:35 LRN (Rec: 09/10/23 08:18 LRN [id number]) Current Condition History of Current Condition Onset Date 2022 Current Complaints R shdr pain with reaching forward History of Current Condition Pt reports he was pulling wire overhead and the next morning couldn't lift his arm because of pain at the posterior R shoulder joint and if leaning on the elbow in his car, he has pain in the same location. States he is getting a little better because he can lift his arm, but feels a strain at ~30 deg's AB of the arm, and feels something is catching when he reaches to turn his radio on in his car. He denies pain with lifting. Pt reports no prior history of pain. 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 Every once in awhile he has pain with sleeping while on the R shoulder. His pain is relieved by turning to the other side and resting his arm on a pillow. Prior Treatments and Tests Pt reports X-rays taken were negative for bony changes. Future Testing and Treatments Planned None Treatment Goals Patient/Caregiver Goals Pt goal's: - learning self care to help make shoulder stronger - be able to work at prior level of function (Full painfree ROM for: throwing baseball and golfing). 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 PT-OP-C Subjective Start: 09/05/23 17:27 Freq: Status: Active Protocol: Document 11/01/23 07:34 SP (Rec: 11/01/23 08:18 SP [id number]) OP-PT Subjective Patient Comments Patient Comments Pt reports has been busy with work, trying to perform HEP. Still pinching with throwing motion especially initially at top AC jt and distal posterior deltoid insertion. PT-OP-E Functional Tests Start: 09/05/23 17:27 Freq: Status: Active Protocol: Document 09/10/23 07:35 LRN (Rec: 09/10/23 08:18 LRN [id number]) Functional Tests Apley's Scratch Test Action 1- Left Below spine of scapula Action 1- Right On spine of scapula Action 2- Left T2 Action 2- Right T2 Action 3- Left T10 Action 3- Right T12 PT-OP-H Neuro Start: 09/05/23 17:27 Freq: Status: Active Protocol: Document 09/10/23 07:35 LRN (Rec: 09/10/23 08:18 LRN [id number]) Sensation Evaluation Gross Sensation Gross Sensation WNL PT-OP-J Posture/Palpation/Skin Start: 09/05/23 17:27 Freq: Status: Active Protocol: Document 09/10/23 07:35 LRN (Rec: 09/10/23 08:18 LRN [id number]) Posture Evaluation Position Standing Shoulder Posture (R) Rounded,(R) Forward,(R) Elevated Scapula Posture (R) Depressed Arm Posture (L) Internally Rotated,(R) Internally Rotated Knee Posture (L) Genu Varus,(R) Genu Varus Comments Posture Comments Neck shifted left, increased lordosis, protruding abdomen, atrophy of R dominant shoulder ms (UT, Supr, infra, Teres Major & Minor, Deltoids) Palpation Assessment Location R shoulder Palpation Location Tender Minor > Teres jason Palpation Findings Tenderness PT-OP-K Range of Motion Start: 09/05/23 17:27 Freq: Status: Active Protocol: Document 10/29/23 08:20 LRN (Rec: 10/29/23 09:43 LRN [id number]) Shoulder Goniometric Range of Motion Shoulder Right Active Testing Position Sitting Flexion 148 Extension 54 Abduction 167 External Rotation at 0 degrees Abduction 65 Internal Rotation Behind Back (text) T11 Left Active Shoulder ROM WFL Yes Testing Position Sitting Flexion 157 Extension 54 Abduction 170 External Rotation at 0 degrees Abduction 65 Internal Rotation Behind Back (text) T10 PT-OP-L Special Tests Start: 09/05/23 17:27 Freq: Status: Active Protocol: Document 09/12/23 08:19 LRN (Rec: 09/12/23 09:10 LRN [id number]) Special Tests Shoulder Special Tests [place] Test Test Results ? positive Comments Click felt once, then was not able to reproduce. PT-OP-M Strength Start: 09/05/23 17:27 Freq: Status: Active Protocol: Document 10/29/23 08:20 LRN (Rec: 10/29/23 09:43 LRN [id number]) Shoulder Strength Shoulder Manual Muscle Testing Right Flexion 5 Normal Abduction (C5) 3+ Fair+ External Rotation 4+ Good+ Internal Rotation 4+ Good+ Comments Pain with AB. PT-OP-Q Treatments Start: 09/05/23 17:27 Freq: Status: Active Protocol: Document 11/01/23 07:34 SP (Rec: 11/01/23 08:18 SP [id number]) Gym Equipment Cable Column (Body Solid) Lat Pull Down Details R UE AAROM FF stretch<> pull down (Abdulkadir) Resistance 4>6 plates Reps/Time 2x8 reps pause stretch, rhomboid&LT engagement PD Therapeutic Exercises Supine Exercises eccentric catch OH Supine Exercise Name eccentric therapist ball toss Side right Resistance green, red small wt ball Equipment Used hooklying yoga mat Reps/Minutes 2x5 reps Comments initial lighstrain then reports more range stretch pnfree, VCelbow straight tball Supine Exercise Name FF Side right Resistance 5#db (lowest wt home) Reps/Minutes 5 reps before tires Comments cued straight elbow, tactil rhomboid & LT engagement into OH improved range R shoulder stretch Supine Exercise Name Shoulder flex Side bilateral Equipment Used cane /c 4# leg wt Reps/Minutes 2x8 reps pause hold Comments MWM inferior glide prx humerus & clavicle Sitting Exercises Lat pull down Sitting Exercise Name trialed in PT Side bilateral Resistance green & blue TB Equipment Used seated on 55cm tball ( assimulate home size) Reps/Minutes x10 Comments tactile & VCs rhomboid concentric- Standing Exercises IR stretch Standing Exercise Name Done in sitting Side right Equipment Used towel behind back Reps/Minutes 3x15 SH Comments cued gentle stretch not push into pain Manual Therapy Treatment Soft Tissue Mobilization R shld Body Location R bicep, distal pec Mobilization Type Rolling,Sustained Pressure, Other Intensity/Depth Moderate Body Position Hooklying Comments PROM humeral IR/ER, punching motion /c ed self STMs same directioning Joint Mobilizations R GH jt Direction inferior Grade III Comments MWM FF during ther ex. PT-OP-R Modalities Start: 09/05/23 17:27 Freq: Status: Active Protocol: Document 10/25/23 07:36 SP (Rec: 10/25/23 08:20 SP [id number]) Ultrasound Therapy Treatment R shld Patient Position Supine Frequency Setting (mHz) 3 Duty Cycle 50% Intensity Setting (w/cm2) 1.5 Comments prox bicep, distal pec PT-OP-T Assessment and Plan Start: 09/05/23 17:27 Freq: Status: Active Protocol: Document 11/01/23 07:34 SP (Rec: 11/01/23 08:18 SP [id number]) Physical Therapy Assessment Goals Three Impairment Decreased R shoulder strength Impairment R shoulder strength is 5/5 except AB 3/5, ER & IR 4+/5 Neck Pinner Goal (LTG) Improve R shoulder strength with pt able to work at his prior level of function without pain. 10/18/23: PRogressing noted about 1 hr after yard work and throwing ball with dog resting in chair mid bicep hurting some but went away. 10/22/23: Pt only has pain at work or home when tossing an object. Pain is at biceps tendon at bicipital groove. 10/29/23: Flex 5/5, AB 3/5 w/ pain, ER/IR 4+/5 without pain. LTG Duration 8 wks-12/27/23 progressing 10/29/23 Two Impairment Decreased R shoulder AROM due to pain. Impairment Sitting (in deg's): Flex 137 R , 160 R; AB 148 R, 158 L; ER ( 0 deg's AB) 57 R, 62 L; IR T12 R, T10 L. Short Term Goal (STG) Improve R scapulohumeral rhythm with pt able to perform R shoulder AROM without pain. 10/18/23: GOAL MET: no pain into FROM now. STG Duration 4 wks-10/11/23 (GOAL MET ) Senior Living Goal (LTG) Improve R shoulder ROM with pt able to throw a baseball and golf with minimal to no discomfort. 09/26/23: As measured by Vivien Howard 09/20/23: 141 deg AROM right shoulder flexion (?seated/sup) and 135 deg post shoulder ER and IR with band. 10/14/23: added wall wt ball 90 /90, con & eccentric abd/ir & er TB. 10/18/23: Progressing no pain with swinging golf club in PT, hasn't gone golfing yet, throwing ball into mat in PT little pain in mid bicep but throws tennis ball into wall home and loosens up but not full strength at outside wall home. R shld: FF 152, ABD 162 , ER 79, IR T12. L shld: FF 158, ABD 172 , ER 75, IR T10. 10/22/23: Pain in biceps throwing ball for dog unless does warm up first by tossing ball into wall. Not yet golfed. LTG Duration 8 wks-12/27/23 progressing 10/22/23 One Impairment Pt lacks appropriate self care HEP Short Term Goal (STG) Pt will be educated in self care pain management (RICE) technique and positioning in partial sidelie for nighttime pain relief. 09/12/23: Pt educated in RICE technique. 09/26/23: Some mornings has stiffness in R shdr when waking but resovles once up walking. Positional traninng given for best R shoulder supported positions. STG Duration 4 wks-10/11/23 (09/26/23: MET GOAL) Senior Living Goal (LTG) Pt will be independent in a self care HEP of R shoulder/ scapula strengthening exercises and neck/R shoulder ROM ex's. 09/26/23: On 09/10/23 HEP of: Scap retract/depression & TB shdr ER/IR. Issued Lev 2 TB. On 09/12/23 HEP: C/S AROM stretching. On 09/20/23: HEP of Sidelying IR AROM, seated body over UE PROM ER and seated AROM ER 10/18/23: progressing wall ball , stand abd ER /c TB, PRone Ts wt and Ys AROM. 10/25/23: supine tball D2 flexion & HABD AROM>5# DB, stand TB Y off wall. LTG Duration 8 wks-12/27/23 progressed 10/25/23. Assessment Summary Assessment Pt responded well to tx. Improved FF OH after manual and stretching, eccentric catching FF OH hooklying then carryover over tball for self AAROM weight assisted. Tactile and ed cues for scap retract/ inferior glide allowed increased FF with less pinch feeling at AC jt area.Less pain reported with throwing motion end tx. Physical Therapy Plan Frequency and Duration Frequency of Treatment 1x/Week Duration of treatment (weeks) 8 Plan of Care Start Date 10/29/23 Plan of Care End Date 12/27/23 Therapeutic Interventions Therapeutic Interventions Home Exercise Program,Joint Mobilizations,Manual Therapy, Neuromuscular Re-education, Self-Care/Home Management,Soft Tissue Mobilization,Taping, Therapeutic Activities, Therapeutic Exercises Modalities Cold Pack/Ice Massage,Hot Packs,Ultrasound Next Visit Focus/Plan Next Note Type Treatment Note Next Visit Plan Check if got more approved visits (may need cancel 11/03 appt). Next tx: Improve R shoulder flex, IR ROM. Caution: shoulder AB creates pain- monitor SHR. Recheck response of focus on contraction of R rhomboid major and lower trap with ex's for proper scapuolohumeral rhythm: D2 flexion stand vs supine bridged over 55 cm tball(what has home) with focus on R scapulohumeral movement. US to R biceps tendon at bicipital groove for control of inflammation last tx. Progressing bicep strengthening, with focus on proper SHR & core stab. POC: More scapulo humeral rhythm, scap stab strengthening, ?JMT; less STM. Pt to focus on self STMs/C. ROM. POC: Improving R SHR and RC strengthening f/b R shoulder ROM ex's along with core stabilization and treatment to reduce bicep tendon pain with tossing of objects. Bicep strengthening.
--- NOTE | 2023-11-04 15:33 | PT-OP ANOTE ---
Pt has no more approved visits, today's appt cancelled, requested Insurance staff to reach out to [employer] for more visits. Next scheduled appt 11/11 with JORGE Mcgovern.
--- NOTE | 2023-11-12 09:19 | PT.OTN ---
Current Diagnoses Impingement syndrome of right shoulder (11/12/23) Strain of unspecified muscle, fascia and tendon at shoulder and upper arm level, right arm, subsequent encounter (11/12/23) Civilian activity done for income or pay (11/12/23) Physical Therapy Treatment Note PT-OP-A Visit Information Start: 09/05/23 17:27 Freq: Status: Active Protocol: Document 11/12/23 08:19 LRN (Rec: 11/12/23 09:18 LRN [id number]) Out-Patient Physical Therapy Visit Information Visit Information Visit Type Treatment Note Visit Note New auth for 12 visits through 12/27/23. Visit Start Time 08:19 Visit Stop Time 09:03 Visit Number 05/17 Evaluation Information Evaluation Date 09/10/23 Precautions Precautions Per intake form: hearing problems, arthritis, neck & back pain. PT-OP-B Current Condition Start: 09/05/23 17:27 Freq: Status: Active Protocol: Document 09/10/23 07:35 LRN (Rec: 09/10/23 08:18 LRN [id number]) Current Condition History of Current Condition Onset Date 2022 Current Complaints R shdr pain with reaching forward History of Current Condition Pt reports he was pulling wire overhead and the next morning couldn't lift his arm because of pain at the posterior R shoulder joint and if leaning on the elbow in his car, he has pain in the same location. States he is getting a little better because he can lift his arm, but feels a strain at ~30 deg's AB of the arm, and feels something is catching when he reaches to turn his radio on in his car. He denies pain with lifting. Pt reports no prior history of pain. 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 Pt is R handed. Every once in awhile he has pain with sleeping while on the R shoulder. His pain is relieved by turning to the other side and resting his arm on a pillow. Prior Treatments and Tests Pt reports X-rays taken were negative for bony changes. Future Testing and Treatments Planned None Treatment Goals Patient/Caregiver Goals Pt goal's: - learning self care to help make shoulder stronger - be able to work at prior level of function (Full painfree ROM for: throwing baseball and golfing). 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 PT-OP-C Subjective Start: 09/05/23 17:27 Freq: Status: Active Protocol: Document 11/12/23 08:19 LRN (Rec: 11/12/23 09:18 LRN [id number]) OP-PT Subjective Patient Comments Patient Comments Feels R shoulder IR ROM is improving, doing HEP daily. Every once in awhile the R shoulder catches. Once loosened up the R shoulder can throw a ball for his dog. PT-OP-E Functional Tests Start: 09/05/23 17:27 Freq: Status: Active Protocol: Document 09/10/23 07:35 LRN (Rec: 09/10/23 08:18 LRN [id number]) Functional Tests Apley's Scratch Test Action 1- Left Below spine of scapula Action 1- Right On spine of scapula Action 2- Left T2 Action 2- Right T2 Action 3- Left T10 Action 3- Right T12 PT-OP-H Neuro Start: 09/05/23 17:27 Freq: Status: Active Protocol: Document 09/10/23 07:35 LRN (Rec: 09/10/23 08:18 LRN [id number]) Sensation Evaluation Gross Sensation Gross Sensation WNL PT-OP-J Posture/Palpation/Skin Start: 09/05/23 17:27 Freq: Status: Active Protocol: Document 09/10/23 07:35 LRN (Rec: 09/10/23 08:18 LRN [id number]) Posture Evaluation Position Standing Shoulder Posture (R) Rounded,(R) Forward,(R) Elevated Scapula Posture (R) Depressed Arm Posture (L) Internally Rotated,(R) Internally Rotated Knee Posture (L) Genu Varus,(R) Genu Varus Comments Posture Comments Neck shifted left, increased lordosis, protruding abdomen, atrophy of R dominant shoulder ms (UT, Supr, infra, Teres Major & Minor, Deltoids) Palpation Assessment Location R shoulder Palpation Location Tender Minor > Teres jason Palpation Findings Tenderness PT-OP-K Range of Motion Start: 09/05/23 17:27 Freq: Status: Active Protocol: Document 10/29/23 08:20 LRN (Rec: 10/29/23 09:43 LRN [id number]) Shoulder Goniometric Range of Motion Shoulder Right Active Testing Position Sitting Flexion 148 Extension 54 Abduction 167 External Rotation at 0 degrees Abduction 65 Internal Rotation Behind Back (text) T11 Left Active Shoulder ROM WFL Yes Testing Position Sitting Flexion 157 Extension 54 Abduction 170 External Rotation at 0 degrees Abduction 65 Internal Rotation Behind Back (text) T10 PT-OP-L Special Tests Start: 09/05/23 17:27 Freq: Status: Active Protocol: Document 09/12/23 08:19 LRN (Rec: 09/12/23 09:10 LRN [id number]) Special Tests Shoulder Special Tests [place] Test Test Results ? positive Comments Click felt once, then was not able to reproduce. PT-OP-M Strength Start: 09/05/23 17:27 Freq: Status: Active Protocol: Document 10/29/23 08:20 LRN (Rec: 10/29/23 09:43 LRN [id number]) Shoulder Strength Shoulder Manual Muscle Testing Right Flexion 5 Normal Abduction (C5) 3+ Fair+ External Rotation 4+ Good+ Internal Rotation 4+ Good+ Comments Pain with AB. PT-OP-Q Treatments Start: 09/05/23 17:27 Freq: Status: Active Protocol: Document 11/12/23 08:19 LRN (Rec: 11/12/23 09:18 LRN [id number]) Gym Equipment Cable Column (Body Solid) Lat Pull Down Details Cued to breath w/exertion and stretch FF after Resistance 60#, 65# Reps/Time 10x, Therapeutic Exercises Supine Exercises eccentric catch OH Supine Exercise Name eccentric therapist ball toss Side right Resistance green, red small wt ball Equipment Used hooklying yoga mat Reps/Minutes 2x5 reps Comments initial lighstrain then reports more range stretch pnfree, VCelbow straight Lat pull down Supine Exercise Name Slow controlled, painfree range Side bilateral Equipment Used Lev 5, 10# wgts on dowel stick Reps/Minutes 8x Comments Cued for adjustments to scap during motion. Sitting Exercises Александр Sitting Exercise Name ROM R shoulder Equipment Used Overhead александр Reps/Minutes 7' Standing Exercises Ball toss motion Standing Exercise Name EC return of ball toss motion w/stretch of FF between sets Side right Equipment Used Maroon TB x 2 Reps/Minutes 3' Shoulder AD Side bilateral Equipment Used 2 Maroon bands Reps/Minutes 10x each IR stretch Standing Exercise Name Done in sitting Side right Equipment Used towel behind back Reps/Minutes 3x15 SH Comments cued gentle stretch not push into pain Manual Therapy Treatment Joint Mobilizations R GH jt Direction inferior Grade III Comments MWM FF during ther ex. Self-Care/Home Management Treatment Education Other Education Discussed pt's use of total body home equipment w/pt describing his ex workout of lat pull down. Recommended pt try to mimic lat pull down last end range flexion in prone, but to start with light resistance. PT-OP-R Modalities Start: 09/05/23 17:27 Freq: Status: Active Protocol: Document 10/25/23 07:36 SP (Rec: 10/25/23 08:20 SP [id number]) Ultrasound Therapy Treatment R shld Patient Position Supine Frequency Setting (mHz) 3 Duty Cycle 50% Intensity Setting (w/cm2) 1.5 Comments prox bicep, distal pec PT-OP-T Assessment and Plan Start: 09/05/23 17:27 Freq: Status: Active Protocol: Document 11/12/23 08:19 LRN (Rec: 11/12/23 09:18 LRN [id number]) Physical Therapy Assessment Goals Two Impairment Decreased R shoulder AROM due to pain. Impairment Sitting (in deg's): Flex 137 R , 160 R; AB 148 R, 158 L; ER ( 0 deg's AB) 57 R, 62 L; IR T12 R, T10 L. Short Term Goal (STG) Improve R scapulohumeral rhythm with pt able to perform R shoulder AROM without pain. 10/18/23: GOAL MET: no pain into FROM now. STG Duration 4 wks-10/11/23 (GOAL MET ) Prenatal Nurse Goal (LTG) Improve R shoulder ROM with pt able to throw a baseball and golf with minimal to no discomfort. 09/26/23: As measured by Vivien Howard 09/20/23: 141 deg AROM right shoulder flexion (?seated/sup) and 135 deg post shoulder ER and IR with band. 10/14/23: added wall wt ball 90 /90, con & eccentric abd/ir & er TB. 10/18/23: Progressing no pain with swinging golf club in PT, hasn't gone golfing yet, throwing ball into mat in PT little pain in mid bicep but throws tennis ball into wall home and loosens up but not full strength at outside wall home. R shld: FF 152, ABD 162 , ER 79, IR T12. L shld: FF 158, ABD 172 , ER 75, IR T10. 10/22/23: Pain in biceps throwing ball for dog unless does warm up first by tossing ball into wall. Not yet golfed. LTG Duration 8 wks-12/27/23 progressing 10/22/23 One Impairment Pt lacks appropriate self care HEP Short Term Goal (STG) Pt will be educated in self care pain management (RICE) technique and positioning in partial sidelie for nighttime pain relief. 09/12/23: Pt educated in RICE technique. 09/26/23: Some mornings has stiffness in R shdr when waking but resovles once up walking. Positional traninng given for best R shoulder supported positions. STG Duration 4 wks-10/11/23 (09/26/23: MET GOAL) Nursing Home Goal (LTG) Pt will be independent in a self care HEP of R shoulder/ scapula strengthening exercises and neck/R shoulder ROM ex's. 09/26/23: On 09/10/23 HEP of: Scap retract/depression & TB shdr ER/IR. Issued Lev 2 TB. On 09/12/23 HEP: C/S AROM stretching. On 09/20/23: HEP of Sidelying IR AROM, seated body over UE PROM ER and seated AROM ER 10/18/23: progressing wall ball , stand abd ER /c TB, PRone Ts wt and Ys AROM. 10/25/23: supine tball D2 flexion & HABD AROM>5# DB, stand TB Y off wall. LTG Duration 8 wks-12/27/23 progressed 10/25/23. Assessment Summary Assessment 58 yo male with 12 additional PT visits approved. Pt w/end range R shoulder impingement, scapular dysfunction of most notably R lower trap/Rhomboid major, possibly Teres minor/ major, or Infraspinatus muscle . Pt has pain in R anterior deltoid region throwing a ball if doesn't stretch first. No noteable difference in R shoulder pain with use of US at end treatmen; therefore would primarily be beneficial if discomfort ending session. ROM of IR reportedly improving. Stiffness/ tightness in R anterior deltoid after therapy. Physical Therapy Plan Frequency and Duration Frequency of Treatment 1x/Week Duration of treatment (weeks) 8 Plan of Care Start Date 10/29/23 Plan of Care End Date 12/27/23 Next Visit Focus/Plan Next Note Type Treatment Note Next Visit Plan Next: Cont to work on improving R shoulder flex, IR ROM, core stab, ?JMT; less STM Caution: shoulder AB creates pain-monitor SHR. Recheck response of focus on contraction of R rhomboid major and lower trap with ex's for proper scapuolohumeral rhythm: D2 flexion stand vs supine bridged over 55 cm tball(what has home) with focus on R scapulohumeral movement. . Progressing bicep strengthening, with focus on proper SHR & core stab. US to R biceps tendon only if needed for ending rx pain POC: More scapulo humeral rhythm, scap stab strengthening. Pt to focus on self STMs/C. ROM. POC: Improving R SHR and RC strengthening f/b R shoulder ROM ex's along with core stabilization and treatment to reduce bicep tendon pain with tossing of objects. Bicep strengthening.
--- NOTE | 2023-11-14 13:53 | PT.OTN ---
Current Diagnoses Impingement syndrome of right shoulder (11/14/23) Strain of unspecified muscle, fascia and tendon at shoulder and upper arm level, right arm, subsequent encounter (11/14/23) Civilian activity done for income or pay (11/14/23) Physical Therapy Treatment Note PT-OP-A Visit Information Start: 09/05/23 17:27 Freq: Status: Active Protocol: Document 11/14/23 08:19 LRN (Rec: 11/14/23 09:00 LRN [id number]) Out-Patient Physical Therapy Visit Information Visit Information Visit Type Treatment Note Visit Note New auth for 12 visits through 12/27/23. Visit Start Time 08:19 Visit Stop Time 08:57 Visit Number 06/17 Evaluation Information Evaluation Date 09/10/23 Precautions Precautions Per intake form: hearing problems, arthritis, neck & back pain. PT-OP-B Current Condition Start: 09/05/23 17:27 Freq: Status: Active Protocol: Document 09/10/23 07:35 LRN (Rec: 09/10/23 08:18 LRN [id number]) Current Condition History of Current Condition Onset Date 2022 Current Complaints R shdr pain with reaching forward History of Current Condition Pt reports he was pulling wire overhead and the next morning couldn't lift his arm because of pain at the posterior R shoulder joint and if leaning on the elbow in his car, he has pain in the same location. States he is getting a little better because he can lift his arm, but feels a strain at ~30 deg's AB of the arm, and feels something is catching when he reaches to turn his radio on in his car. He denies pain with lifting. Pt reports no prior history of pain. 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 Pt is R handed. Every once in awhile he has pain with sleeping while on the R shoulder. His pain is relieved by turning to the other side and resting his arm on a pillow. Prior Treatments and Tests Pt reports X-rays taken were negative for bony changes. Future Testing and Treatments Planned None Treatment Goals Patient/Caregiver Goals Pt goal's: - learning self care to help make shoulder stronger - be able to work at prior level of function (Full painfree ROM for: throwing baseball and golfing). 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 PT-OP-C Subjective Start: 09/05/23 17:27 Freq: Status: Active Protocol: Document 11/14/23 08:19 LRN (Rec: 11/14/23 13:40 LRN [id number]) OP-PT Subjective Patient Comments Patient Comments Hooper good after last session. PT-OP-E Functional Tests Start: 09/05/23 17:27 Freq: Status: Active Protocol: Document 09/10/23 07:35 LRN (Rec: 09/10/23 08:18 LRN [id number]) Functional Tests Apley's Scratch Test Action 1- Left Below spine of scapula Action 1- Right On spine of scapula Action 2- Left T2 Action 2- Right T2 Action 3- Left T10 Action 3- Right T12 PT-OP-H Neuro Start: 09/05/23 17:27 Freq: Status: Active Protocol: Document 09/10/23 07:35 LRN (Rec: 09/10/23 08:18 LRN [id number]) Sensation Evaluation Gross Sensation Gross Sensation WNL PT-OP-J Posture/Palpation/Skin Start: 09/05/23 17:27 Freq: Status: Active Protocol: Document 09/10/23 07:35 LRN (Rec: 09/10/23 08:18 LRN [id number]) Posture Evaluation Position Standing Shoulder Posture (R) Rounded,(R) Forward,(R) Elevated Scapula Posture (R) Depressed Arm Posture (L) Internally Rotated,(R) Internally Rotated Knee Posture (L) Genu Varus,(R) Genu Varus Comments Posture Comments Neck shifted left, increased lordosis, protruding abdomen, atrophy of R dominant shoulder ms (UT, Supr, infra, Teres Major & Minor, Deltoids) Palpation Assessment Location R shoulder Palpation Location Tender Minor > Teres jason Palpation Findings Tenderness PT-OP-K Range of Motion Start: 09/05/23 17:27 Freq: Status: Active Protocol: Document 10/29/23 08:20 LRN (Rec: 10/29/23 09:43 LRN [id number]) Shoulder Goniometric Range of Motion Shoulder Right Active Testing Position Sitting Flexion 148 Extension 54 Abduction 167 External Rotation at 0 degrees Abduction 65 Internal Rotation Behind Back (text) T11 Left Active Shoulder ROM WFL Yes Testing Position Sitting Flexion 157 Extension 54 Abduction 170 External Rotation at 0 degrees Abduction 65 Internal Rotation Behind Back (text) T10 PT-OP-L Special Tests Start: 09/05/23 17:27 Freq: Status: Active Protocol: Document 09/12/23 08:19 LRN (Rec: 09/12/23 09:10 LRN [id number]) Special Tests Shoulder Special Tests [place] Test Test Results ? positive Comments Click felt once, then was not able to reproduce. PT-OP-M Strength Start: 09/05/23 17:27 Freq: Status: Active Protocol: Document 10/29/23 08:20 LRN (Rec: 10/29/23 09:43 LRN [id number]) Shoulder Strength Shoulder Manual Muscle Testing Right Flexion 5 Normal Abduction (C5) 3+ Fair+ External Rotation 4+ Good+ Internal Rotation 4+ Good+ Comments Pain with AB. PT-OP-Q Treatments Start: 09/05/23 17:27 Freq: Status: Active Protocol: Document 11/14/23 08:19 LRN (Rec: 11/14/23 09:00 LRN [id number]) Cardio Equipment Upper Body Ergometer (UBE) Duration (Minutes) 10 RPM 110 Seat Position 11 Height 4 Other Arm throw motion/position, alternating [id number] direction Therapeutic Exercises Supine Exercises TA tightening/core stab Reps/Minutes 8' Comments Cuing to abdomen, tried cue to tighten TA with inbreath & hold w/exhale Lat pull down Supine Exercise Name Slow controlled, painfree range Side bilateral Equipment Used Lev 4, hooked to Dual Pully handle, sup on floor mat Reps/Minutes 15x 2 Comments Cued for adjustments to scap during motion. Standing Exercises Shoulder flex stretch Standing Exercise Name Dorsal hands on wall, sliding arms up the wall Side bilateral Reps/Minutes 10 SH x 10 Comments No pain L shdr stretch at doorway Standing Exercise Name Arm resting on doorjamb in max throw position f/b stretch & Conc rtn to cabrera Side left IR stretch Standing Exercise Name Standing Side right Equipment Used towel behind back Reps/Minutes 1' x 3 Comments cued gentle stretch not push into pain Self-Care/Home Management Treatment Activities Self-Care/Home Management Activities Issued & reviewed HEP: Doorway pec stretch & throw training/strengthening, IR stretch, lat pull down standing w/alternative of supine positioning. PT-OP-R Modalities Start: 09/05/23 17:27 Freq: Status: Active Protocol: Document 10/25/23 07:36 SP (Rec: 10/25/23 08:20 SP [id number]) Ultrasound Therapy Treatment R shld Patient Position Supine Frequency Setting (mHz) 3 Duty Cycle 50% Intensity Setting (w/cm2) 1.5 Comments prox bicep, distal pec PT-OP-T Assessment and Plan Start: 09/05/23 17:27 Freq: Status: Active Protocol: Document 11/14/23 08:19 LRN (Rec: 11/14/23 09:00 LRN [id number]) Physical Therapy Assessment Goals Three Impairment Decreased R shoulder strength Impairment R shoulder strength is 5/5 except AB 3/5, ER & IR 4+/5 Shelter Goal (LTG) Improve R shoulder strength with pt able to work at his prior level of function without pain. 10/18/23: PRogressing noted about 1 hr after yard work and throwing ball with dog resting in chair mid bicep hurting some but went away. 10/22/23: Pt only has pain at work or home when tossing an object. Pain is at biceps tendon at bicipital groove. 10/29/23: Flex 5/5, AB 3/5 w/ pain, ER/IR 4+/5 without pain. LTG Duration 8 wks-12/27/23 progressing 10/29/23 Two Impairment Decreased R shoulder AROM due to pain. Impairment Sitting (in deg's): Flex 137 R , 160 R; AB 148 R, 158 L; ER ( 0 deg's AB) 57 R, 62 L; IR T12 R, T10 L. Short Term Goal (STG) Improve R scapulohumeral rhythm with pt able to perform R shoulder AROM without pain. 10/18/23: GOAL MET: no pain into FROM now. STG Duration 4 wks-10/11/23 (GOAL MET ) Shelter Goal (LTG) Improve R shoulder ROM with pt able to throw a baseball and golf with minimal to no discomfort. 09/26/23: As measured by Vivien Howard 09/20/23: 141 deg AROM right shoulder flexion (?seated/sup) and 135 deg post shoulder ER and IR with band. 10/14/23: added wall wt ball 90 /90, con & eccentric abd/ir & er TB. 10/18/23: Progressing no pain with swinging golf club in PT, hasn't gone golfing yet, throwing ball into mat in PT little pain in mid bicep but throws tennis ball into wall home and loosens up but not full strength at outside wall home. R shld: FF 152, ABD 162 , ER 79, IR T12. L shld: FF 158, ABD 172 , ER 75, IR T10. 10/22/23: Pain in biceps throwing ball for dog unless does warm up first by tossing ball into wall. Not yet golfed. LTG Duration 8 wks-12/27/23 progressing 10/22/23 One Impairment Pt lacks appropriate self care HEP Short Term Goal (STG) Pt will be educated in self care pain management (RICE) technique and positioning in partial sidelie for nighttime pain relief. 09/12/23: Pt educated in RICE technique. 09/26/23: Some mornings has stiffness in R shdr when waking but resovles once up walking. Positional traninng given for best R shoulder supported positions. STG Duration 4 wks-10/11/23 (09/26/23: MET GOAL) Rn Integrity Goal (LTG) Pt will be independent in a self care HEP of R shoulder/ scapula strengthening exercises and neck/R shoulder ROM ex's. 09/26/23: On 09/10/23 HEP of: Scap retract/depression & TB shdr ER/IR. Issued Lev 2 TB. On 09/12/23 HEP: C/S AROM stretching. On 09/20/23: HEP of Sidelying IR AROM, seated body over UE PROM ER and seated AROM ER 10/18/23: progressing wall ball , stand abd ER /c TB, PRone Ts wt and Ys AROM. 10/25/23: supine tball D2 flexion & HABD AROM>5# DB, stand TB Y off wall. 11/14/23: HEP: Doorway pec stretch & throw training/ strengthening, IR stretch, lat pull down standing w/ alternative of supine positioning. LTG Duration 8 wks-12/27/23 progressed 11/14/23. Assessment Summary Assessment 58 yo male with 12 additional PT visits approved. Pt w/end range R shoulder impingement w /pn in anter brachium; scapular dysfunction most notably R lower trap/Rhomboid major, possibly Teres minor/ major, or Infraspinatus muscle . Today pt demonstrated poor core stab control, not able to hold TA during breath, much cuing for pt to not- breathhold with ex. Good chidi with new doorway stretch/ strengthening of R shoulder. Further core stab and shoulder strengthening for throwing needed. Physical Therapy Plan Frequency and Duration Frequency of Treatment 1x/Week Duration of treatment (weeks) 8 Plan of Care Start Date 10/29/23 Plan of Care End Date 12/27/23 Next Visit Focus/Plan Next Note Type Treatment Note Next Visit Plan Caution: shoulder AB creates pain-monitor SHR. Next: Review issued HEP. Cont to work on improving R shoulder flex, IR ROM, core stab, ?JMT; less STM. Recheck response of focus on contraction of R rhomboid major and lower trap with ex's for proper scapuolohumeral rhythm: D2 flexion stand vs supine bridged over 55 cm tball(what has home) with focus on R scapulohumeral movement. Progressing bicep strengthening, with focus on proper SHR & core stab. Only if needed: US to R biceps tendon if rx ends w/R shoulder pain. More scapulo humeral rhythm, scap stab strengthening. Pt to focus on self STMs/C. ROM. POC: Improving R SHR and RC strengthening f/b R shoulder ROM ex's along with core stabilization and treatment to reduce bicep tendon pain with tossing of objects. Bicep strengthening.
--- NOTE | 2023-11-18 09:04 | PT.OTN ---
Current Diagnoses Impingement syndrome of right shoulder (11/18/23) Strain of unspecified muscle, fascia and tendon at shoulder and upper arm level, right arm, subsequent encounter (11/18/23) Civilian activity done for income or pay (11/18/23) Physical Therapy Treatment Note PT-OP-A Visit Information Start: 09/05/23 17:27 Freq: Status: Active Protocol: Document 11/18/23 08:20 LRN (Rec: 11/18/23 09:04 LRN [id number]) Out-Patient Physical Therapy Visit Information Visit Information Visit Type Treatment Note Visit Note New auth for 12 visits through 12/27/23. Visit Start Time 08:20 Visit Stop Time 08:59 Visit Number 06/17 Evaluation Information Evaluation Date 09/10/23 Precautions Precautions Per intake form: hearing problems, arthritis, neck & back pain. PT-OP-B Current Condition Start: 09/05/23 17:27 Freq: Status: Active Protocol: Document 09/10/23 07:35 LRN (Rec: 09/10/23 08:18 LRN [id number]) Current Condition History of Current Condition Onset Date 2022 Current Complaints R shdr pain with reaching forward History of Current Condition Pt reports he was pulling wire overhead and the next morning couldn't lift his arm because of pain at the posterior R shoulder joint and if leaning on the elbow in his car, he has pain in the same location. States he is getting a little better because he can lift his arm, but feels a strain at ~30 deg's AB of the arm, and feels something is catching when he reaches to turn his radio on in his car. He denies pain with lifting. Pt reports no prior history of pain. 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 Pt is R handed. Every once in awhile he has pain with sleeping while on the R shoulder. His pain is relieved by turning to the other side and resting his arm on a pillow. Prior Treatments and Tests Pt reports X-rays taken were negative for bony changes. Future Testing and Treatments Planned None Treatment Goals Patient/Caregiver Goals Pt goal's: - learning self care to help make shoulder stronger - be able to work at prior level of function (Full painfree ROM for: throwing baseball and golfing). 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 PT-OP-C Subjective Start: 09/05/23 17:27 Freq: Status: Active Protocol: Document 11/18/23 08:20 LRN (Rec: 11/18/23 09:04 LRN [id number]) OP-PT Subjective Patient Comments Patient Comments Same. Worked the weekend, so didn't get a chance to ex. No pain anymore at night. PT-OP-E Functional Tests Start: 09/05/23 17:27 Freq: Status: Active Protocol: Document 09/10/23 07:35 LRN (Rec: 09/10/23 08:18 LRN [id number]) Functional Tests Apley's Scratch Test Action 1- Left Below spine of scapula Action 1- Right On spine of scapula Action 2- Left T2 Action 2- Right T2 Action 3- Left T10 Action 3- Right T12 PT-OP-H Neuro Start: 09/05/23 17:27 Freq: Status: Active Protocol: Document 09/10/23 07:35 LRN (Rec: 09/10/23 08:18 LRN [id number]) Sensation Evaluation Gross Sensation Gross Sensation WNL PT-OP-J Posture/Palpation/Skin Start: 09/05/23 17:27 Freq: Status: Active Protocol: Document 09/10/23 07:35 LRN (Rec: 09/10/23 08:18 LRN [id number]) Posture Evaluation Position Standing Shoulder Posture (R) Rounded,(R) Forward,(R) Elevated Scapula Posture (R) Depressed Arm Posture (L) Internally Rotated,(R) Internally Rotated Knee Posture (L) Genu Varus,(R) Genu Varus Comments Posture Comments Neck shifted left, increased lordosis, protruding abdomen, atrophy of R dominant shoulder ms (UT, Supr, infra, Teres Major & Minor, Deltoids) Palpation Assessment Location R shoulder Palpation Location Tender Minor > Teres jason Palpation Findings Tenderness PT-OP-K Range of Motion Start: 09/05/23 17:27 Freq: Status: Active Protocol: Document 10/29/23 08:20 LRN (Rec: 10/29/23 09:43 LRN [id number]) Shoulder Goniometric Range of Motion Shoulder Right Active Testing Position Sitting Flexion 148 Extension 54 Abduction 167 External Rotation at 0 degrees Abduction 65 Internal Rotation Behind Back (text) T11 Left Active Shoulder ROM WFL Yes Testing Position Sitting Flexion 157 Extension 54 Abduction 170 External Rotation at 0 degrees Abduction 65 Internal Rotation Behind Back (text) T10 PT-OP-L Special Tests Start: 09/05/23 17:27 Freq: Status: Active Protocol: Document 09/12/23 08:19 LRN (Rec: 09/12/23 09:10 LRN [id number]) Special Tests Shoulder Special Tests [place] Test Test Results ? positive Comments Click felt once, then was not able to reproduce. PT-OP-M Strength Start: 09/05/23 17:27 Freq: Status: Active Protocol: Document 10/29/23 08:20 LRN (Rec: 10/29/23 09:43 LRN [id number]) Shoulder Strength Shoulder Manual Muscle Testing Right Flexion 5 Normal Abduction (C5) 3+ Fair+ External Rotation 4+ Good+ Internal Rotation 4+ Good+ Comments Pain with AB. PT-OP-Q Treatments Start: 09/05/23 17:27 Freq: Status: Active Protocol: Document 11/18/23 08:20 LRN (Rec: 11/18/23 09:04 LRN [id number]) Cardio Equipment Upper Body Ergometer (UBE) Duration (Minutes) 10 RPM 110 Seat Position 11 Height 6 Other Arm throw motion/position, alternating wzzfr-bpol-[id number] direction Therapeutic Exercises Prone Exercises T, Ys Side bilateral Resistance AROM Ys Equipment Used over 55cm Tball (size home) Reps/Minutes x5 reps Comments tactile cues to scap, c/o neck discomfort of paraspinals Sidelying Exercises open book Sidelying Exercise Name Reviewed verbally for HEP Sitting Exercises Neck AROM Sitting Exercise Name Reviewed Neck AROM stretch Standing Exercises L shdr stretch at doorway Standing Exercise Name Arm resting on doorjamb in max throw position f/b stretch & Conc rtn to cabrera Side left Ball toss motion Standing Exercise Name Sitting, elbow resting on lg blue mat for arm support. Side bilateral Equipment Used Lev1 TB Reps/Minutes 10x 3 Shoulder AD Side bilateral Equipment Used 2 Maroon bands Reps/Minutes 15x 2 ea Ys off wall Standing Exercise Name added to HEP Side bilateral Reps/Minutes 10 Comments reports good effort pnfree IR stretch Standing Exercise Name Standing Side right Equipment Used towel behind back Reps/Minutes 1' x 3 Comments cued gentle stretch not push into pain PT-OP-R Modalities Start: 09/05/23 17:27 Freq: Status: Active Protocol: Document 10/25/23 07:36 SP (Rec: 10/25/23 08:20 SP [id number]) Ultrasound Therapy Treatment R shld Patient Position Supine Frequency Setting (mHz) 3 Duty Cycle 50% Intensity Setting (w/cm2) 1.5 Comments prox bicep, distal pec PT-OP-T Assessment and Plan Start: 09/05/23 17:27 Freq: Status: Active Protocol: Document 11/18/23 08:20 LRN (Rec: 11/18/23 09:04 LRN [id number]) Physical Therapy Assessment Goals Three Impairment Decreased R shoulder strength Impairment R shoulder strength is 5/5 except AB 3/5, ER & IR 4+/5 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 10/18/23: PRogressing noted about 1 hr after yard work and throwing ball with dog resting in chair mid bicep hurting some but went away. 10/22/23: Pt only has pain at work or home when tossing an object. Pain is at biceps tendon at bicipital groove. 10/29/23: Flex 5/5, AB 3/5 w/ pain, ER/IR 4+/5 without pain. LTG Duration 8 wks-12/27/23 progressing 10/29/23 Two Impairment Decreased R shoulder AROM due to pain. Impairment Sitting (in deg's): Flex 137 R , 160 R; AB 148 R, 158 L; ER ( 0 deg's AB) 57 R, 62 L; IR T12 R, T10 L. Short Term Goal (STG) Improve R scapulohumeral rhythm with pt able to perform R shoulder AROM without pain. 10/18/23: GOAL MET: no pain into FROM now. STG Duration 4 wks-10/11/23 (GOAL MET ) Skilled Nursing Goal (LTG) Improve R shoulder ROM with pt able to throw a baseball and golf with minimal to no discomfort. 09/26/23: As measured by Vivien Howard 09/20/23: 141 deg AROM right shoulder flexion (?seated/sup) and 135 deg post shoulder ER and IR with band. 10/14/23: added wall wt ball 90 /90, con & eccentric abd/ir & er TB. 10/18/23: Progressing no pain with swinging golf club in PT, hasn't gone golfing yet, throwing ball into mat in PT little pain in mid bicep but throws tennis ball into wall home and loosens up but not full strength at outside wall home. R shld: FF 152, ABD 162 , ER 79, IR T12. L shld: FF 158, ABD 172 , ER 75, IR T10. 10/22/23: Pain in biceps throwing ball for dog unless does warm up first by tossing ball into wall. Not yet golfed. 11/18/23: ABle to swing a golf club w/o pain. LTG Duration 8 wks-12/27/23 progressing 11/18/23 One Impairment Pt lacks appropriate self care HEP Short Term Goal (STG) Pt will be educated in self care pain management (RICE) technique and positioning in partial sidelie for nighttime pain relief. 09/12/23: Pt educated in RICE technique. 09/26/23: Some mornings has stiffness in R shdr when waking but resovles once up walking. Positional traninng given for best R shoulder supported positions. STG Duration 4 wks-10/11/23 (09/26/23: MET GOAL) Skilled Nursing Goal (LTG) Pt will be independent in a self care HEP of R shoulder/ scapula strengthening exercises and neck/R shoulder ROM ex's. 09/26/23: On 09/10/23 HEP of: Scap retract/depression & TB shdr ER/IR. Issued Lev 2 TB. On 09/12/23 HEP: C/S AROM stretching. On 09/20/23: HEP of Sidelying IR AROM, seated body over UE PROM ER and seated AROM ER 10/18/23: progressing wall ball , stand abd ER /c TB, PRone Ts wt and Ys AROM. 10/25/23: supine tball D2 flexion & HABD AROM>5# DB, stand TB Y off wall. 11/14/23: HEP: Doorway pec stretch & throw training/ strengthening, IR stretch, lat pull down standing w/ alternative of supine positioning. LTG Duration 8 wks-12/27/23 progressed 11/14/23. Assessment Summary Assessment 58 yo male with 12 additional PT visits approved. Pt w/end range R shoulder impingement w /pn in anter brachium; scapular dysfunction most notably R lower trap/Rhomboid major, possibly Teres minor/ major, or Infraspinatus muscle . Today pt reporting no longer pain at night. Review needed to restart HEP of open book and neck ROM stretching. Improved symmetry of mvmt noted of scapula with wall Y- lift offs. Pt appears to have >er mobility with ER on throw motion R than L. Physical Therapy Plan Frequency and Duration Frequency of Treatment 1x/Week Duration of treatment (weeks) 8 Plan of Care Start Date 10/29/23 Plan of Care End Date 12/27/23 Next Visit Focus/Plan Next Note Type Treatment Note Next Visit Plan Caution: shoulder AB creates pain-monitor SHR Next: Remeasure R shdr flex/ AB AROM. strengthen IR's in throw position (EC/CON). Cont to work on improving R shoulder flex, IR ROM/strength (in throw postion), core stab , ?JMT; less STM. Recheck response of focus on contraction of R rhomboid major and lower trap with ex's for proper scapuolohumeral rhythm: D2 flexion stand vs supine bridged over 55 cm tball(what has home) with focus on R scapulohumeral movement. Progressing bicep strengthening, with focus on proper SHR & core stab. Only if needed: US to R biceps tendon if rx ends w/R shoulder pain. More scapulo humeral rhythm, scap stab strengthening. Pt to focus on self STMs/C. ROM. POC: Improving R SHR and RC strengthening f/b R shoulder ROM ex's along with core stabilization and treatment to reduce bicep tendon pain with tossing of objects. Bicep strengthening.
--- NOTE | 2023-12-03 09:44 | PT.OTN ---
Current Diagnoses Impingement syndrome of right shoulder (12/03/23) Strain of unspecified muscle, fascia and tendon at shoulder and upper arm level, right arm, subsequent encounter (12/03/23) Civilian activity done for income or pay (12/03/23) Physical Therapy Treatment Note PT-OP-A Visit Information Start: 09/05/23 17:27 Freq: Status: Active Protocol: Document 12/03/23 09:04 SP (Rec: 12/03/23 09:16 SP [id number]) Out-Patient Physical Therapy Visit Information Visit Information Visit Type Treatment Note Visit Note New auth for 12 visits through 12/27/23. Visit Start Time 09:04 Visit Stop Time 09:44 Visit Number 07/15 Evaluation Information Evaluation Date 09/10/23 Precautions Precautions Per intake form: hearing problems, arthritis, neck & back pain. PT-OP-B Current Condition Start: 09/05/23 17:27 Freq: Status: Active Protocol: Document 09/10/23 07:35 LRN (Rec: 09/10/23 08:18 LRN [id number]) Current Condition History of Current Condition Onset Date 2022 Current Complaints R shdr pain with reaching forward History of Current Condition Pt reports he was pulling wire overhead and the next morning couldn't lift his arm because of pain at the posterior R shoulder joint and if leaning on the elbow in his car, he has pain in the same location. States he is getting a little better because he can lift his arm, but feels a strain at ~30 deg's AB of the arm, and feels something is catching when he reaches to turn his radio on in his car. He denies pain with lifting. Pt reports no prior history of pain. 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 Pt is R handed. Every once in awhile he has pain with sleeping while on the R shoulder. His pain is relieved by turning to the other side and resting his arm on a pillow. Prior Treatments and Tests Pt reports X-rays taken were negative for bony changes. Future Testing and Treatments Planned None Treatment Goals Patient/Caregiver Goals Pt goal's: - learning self care to help make shoulder stronger - be able to work at prior level of function (Full painfree ROM for: throwing baseball and golfing). 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 PT-OP-C Subjective Start: 09/05/23 17:27 Freq: Status: Active Protocol: Document 12/03/23 09:04 SP (Rec: 12/03/23 09:16 SP [id number]) OP-PT Subjective Patient Comments Patient Comments Pt arrives with medical record request, stated they reached out to him to help because they haven't received previous request. Stated his shoulder going good, throwing ball at wall to warm up and helps. Has been really busy with work ( 730am-630 pm) and that hasn't been able to incorporate in day but supine over ball for UE ROM and starting to incorporate LB past Ex to support his back getting sore again. He states hoping to finalize HEP to help progress and continue at home to DC when sees PT in 2 more txs. PT-OP-E Functional Tests Start: 09/05/23 17:27 Freq: Status: Active Protocol: Document 09/10/23 07:35 LRN (Rec: 09/10/23 08:18 LRN [id number]) Functional Tests Apley's Scratch Test Action 1- Left Below spine of scapula Action 1- Right On spine of scapula Action 2- Left T2 Action 2- Right T2 Action 3- Left T10 Action 3- Right T12 PT-OP-H Neuro Start: 09/05/23 17:27 Freq: Status: Active Protocol: Document 09/10/23 07:35 LRN (Rec: 09/10/23 08:18 LRN [id number]) Sensation Evaluation Gross Sensation Gross Sensation WNL PT-OP-J Posture/Palpation/Skin Start: 09/05/23 17:27 Freq: Status: Active Protocol: Document 09/10/23 07:35 LRN (Rec: 09/10/23 08:18 LRN [id number]) Posture Evaluation Position Standing Shoulder Posture (R) Rounded,(R) Forward,(R) Elevated Scapula Posture (R) Depressed Arm Posture (L) Internally Rotated,(R) Internally Rotated Knee Posture (L) Genu Varus,(R) Genu Varus Comments Posture Comments Neck shifted left, increased lordosis, protruding abdomen, atrophy of R dominant shoulder ms (UT, Supr, infra, Teres Major & Minor, Deltoids) Palpation Assessment Location R shoulder Palpation Location Tender Minor > Teres jason Palpation Findings Tenderness PT-OP-K Range of Motion Start: 09/05/23 17:27 Freq: Status: Active Protocol: Document 12/03/23 09:04 SP (Rec: 12/03/23 09:17 SP [id number]) Shoulder Goniometric Range of Motion Shoulder Left Passive Internal Rotation 90 Right Active Testing Position Sitting Flexion 153 Extension 71 Abduction 167 External Rotation at 0 degrees Abduction 78 Internal Rotation Behind Back (text) T11 Comments AROM R shld gains seated change since 10/29/23: FF 153 deg gain 5 deg ABD 71 deg gain 17 deg ER at 0 Deg ABD: 78 deg gain 13 degIR behing back: T11 no change Left Active Shoulder ROM WFL Yes Testing Position Sitting Flexion 141 Extension 54 Abduction 169 External Rotation at 0 degrees Abduction 78 Internal Rotation Behind Back (text) T9 Comments AROM L shld seated change since 10/29/23: FF 141deg loss of 16 deg ABD 169 deg loss of 1 deg ER at 0 deg ABD: 78 deg gain of 13 deg IR behing back: T9 gain 1 vertebra evation ROM PT-OP-L Special Tests Start: 09/05/23 17:27 Freq: Status: Active Protocol: Document 09/12/23 08:19 LRN (Rec: 09/12/23 09:10 LRN [id number]) Special Tests Shoulder Special Tests Churchill Test Test Results ? positive Comments Click felt once, then was not able to reproduce. PT-OP-M Strength Start: 09/05/23 17:27 Freq: Status: Active Protocol: Document 10/29/23 08:20 LRN (Rec: 10/29/23 09:43 LRN [id number]) Shoulder Strength Shoulder Manual Muscle Testing Right Flexion 5 Normal Abduction (C5) 3+ Fair+ External Rotation 4+ Good+ Internal Rotation 4+ Good+ Comments Pain with AB. PT-OP-Q Treatments Start: 09/05/23 17:27 Freq: Status: Active Protocol: Document 12/03/23 09:04 SP (Rec: 12/03/23 09:16 SP [id number]) Cardio Equipment Upper Body Ergometer (UBE) Duration (Minutes) 10 RPM 60 Seat Position 11 Height 6 Other Arm throw motion/position, alternating [id number] direction Therapeutic Exercises Prone Exercises T, Ys Prone Exercise Name Ts & Ys Side bilateral Resistance Ts 3# DB /c partial humeral ER , AROM Ys > 2# DB Equipment Used over 55cm Tball (size home) Reps/Minutes Ts 2x20, Ys x10 AROM then 2# DB x10 pnfree Comments no pain, just neck tension and little crackingneck but just tension stretch Standing Exercises Ball toss motion Standing Exercise Name Sitting, elbow resting on lg blue mat for arm support. Side bilateral Equipment Used Lev 6 TB Reps/Minutes x20 slow pacing movement, x10 quick eccentric return Comments con then slower & quick eccentric return- pnfree reported PT-OP-R Modalities Start: 09/05/23 17:27 Freq: Status: Active Protocol: Document 10/25/23 07:36 SP (Rec: 10/25/23 08:20 SP [id number]) Ultrasound Therapy Treatment R shld Patient Position Supine Frequency Setting (mHz) 3 Duty Cycle 50% Intensity Setting (w/cm2) 1.5 Comments prox bicep, distal pec PT-OP-T Assessment and Plan Start: 09/05/23 17:27 Freq: Status: Active Protocol: Document 12/03/23 09:04 SP (Rec: 12/03/23 09:16 SP [id number]) Physical Therapy Assessment Goals Three Impairment Decreased R shoulder strength Impairment R shoulder strength is 5/5 except AB 3/5, ER & IR 4+/5 Alf Goal (LTG) Improve R shoulder strength with pt able to work at his prior level of function without pain. 10/18/23: PRogressing noted about 1 hr after yard work and throwing ball with dog resting in chair mid bicep hurting some but went away. 10/22/23: Pt only has pain at work or home when tossing an object. Pain is at biceps tendon at bicipital groove. 10/29/23: Flex 5/5, AB 3/5 w/ pain, ER/IR 4+/5 without pain. LTG Duration 8 wks-12/27/23 progressing 10/29/23 Two Impairment Decreased R shoulder AROM due to pain. Impairment Sitting (in deg's): Flex 137 R , 160 R; AB 148 R, 158 L; ER ( 0 deg's AB) 57 R, 62 L; IR T12 R, T10 L. Short Term Goal (STG) Improve R scapulohumeral rhythm with pt able to perform R shoulder AROM without pain. 10/18/23: GOAL MET: no pain into FROM now. STG Duration 4 wks-10/11/23 (GOAL MET ) Alf Goal (LTG) Improve R shoulder ROM with pt able to throw a baseball and golf with minimal to no discomfort. 09/26/23: As measured by Vivien Howard 09/20/23: 141 deg AROM right shoulder flexion (?seated/sup) and 135 deg post shoulder ER and IR with band. 10/14/23: added wall wt ball 90 /90, con & eccentric abd/ir & er TB. 10/18/23: Progressing no pain with swinging golf club in PT, hasn't gone golfing yet, throwing ball into mat in PT little pain in mid bicep but throws tennis ball into wall home and loosens up but not full strength at outside wall home. R shld: FF 152, ABD 162 , ER 79, IR T12. L shld: FF 158, ABD 172 , ER 75, IR T10. 10/22/23: Pain in biceps throwing ball for dog unless does warm up first by tossing ball into wall. Not yet golfed. 11/18/23: ABle to swing a golf club w/o pain. 12/03/23: see assessment gains in RUE AROM, decreased ROM noted LUE taken seated. LTG Duration 8 wks-12/27/23 progressing 11/18/23 One Impairment Pt lacks appropriate self care HEP Short Term Goal (STG) Pt will be educated in self care pain management (RICE) technique and positioning in partial sidelie for nighttime pain relief. 09/12/23: Pt educated in RICE technique. 09/26/23: Some mornings has stiffness in R shdr when waking but resovles once up walking. Positional traninng given for best R shoulder supported positions. STG Duration 4 wks-10/11/23 (09/26/23: MET GOAL) Alf Goal (LTG) Pt will be independent in a self care HEP of R shoulder/ scapula strengthening exercises and neck/R shoulder ROM ex's. 09/26/23: On 09/10/23 HEP of: Scap retract/depression & TB shdr ER/IR. Issued Lev 2 TB. On 09/12/23 HEP: C/S AROM stretching. On 09/20/23: HEP of Sidelying IR AROM, seated body over UE PROM ER and seated AROM ER 10/18/23: progressing wall ball , stand abd ER /c TB, PRone Ts wt and Ys AROM. 10/25/23: supine tball D2 flexion & HABD AROM>5# DB, stand TB Y off wall. 11/14/23: HEP: Doorway pec stretch & throw training/ strengthening, IR stretch, lat pull down standing w/ alternative of supine positioning. LTG Duration 8 wks-12/27/23 progressed 11/14/23. Progress Towards Goals Progress Comments AROM L shld seated change since 10/29/23: FF 141deg loss of 16 deg ABD 169 deg loss of 1 deg ER at 0 deg ABD: 78 deg gain of 13 deg IR behing back: T9 gain 1 vertebra evation ROM AROM R shld gains seated change since 10/29/23: FF 153 deg gain 5 deg ABD 71 deg gain 17 deg ER at 0 Deg ABD: 78 deg gain 13 degIR behing back: T11 no change Assessment Summary Assessment Pt mades gains in R UE AROM but decreased measured AROM in LUE, could be discrepency between therapists? Will remeasure last tx /c PT. Pt good tolerance to ther ex added resistance to prone over tball ex only tension over anterior R shld initialy 2 reps thens goes away. Good response to eccentric IR throwing motion no pain and reports throwing ball at wall home helps loosen up for the day. 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 Physical Therapy Plan Frequency and Duration Frequency of Treatment 1x/Week Duration of treatment (weeks) 8 Plan of Care Start Date 10/29/23 Plan of Care End Date 12/27/23 Therapeutic Interventions Therapeutic Interventions Home Exercise Program,Joint Mobilizations,Manual Therapy, Neuromuscular Re-education, Self-Care/Home Management,Soft Tissue Mobilization,Taping, Therapeutic Activities, Therapeutic Exercises Modalities Cold Pack/Ice Massage,Hot Packs,Ultrasound Next Visit Focus/Plan Next Note Type Treatment Note Next Visit Plan RECaution: shoulder AB creates pain-monitor SHR PT: Remeasure R shdr flex/AB AROM /c PT last tx, noted decrease LUE AROM vs measured in October. Assess response last tx: strengthen IR's in throw position (EC/CON). POC: Cont to work on improving R shoulder flex, IR ROM/ strength (in throw postion), core stab, ?JMT; less STM. Recheck response of focus on contraction of R rhomboid major and lower trap with ex's for proper scapuolohumeral rhythm: D2 flexion stand vs supine bridged over 55 cm tball(what has home) with focus on R scapulohumeral movement. Progressing bicep strengthening, with focus on proper SHR & core stab. Only if needed: US to R biceps tendon if rx ends w/R shoulder pain. More scapulo humeral rhythm, scap stab strengthening. Pt to focus on self STMs/C. ROM. POC: Improving R SHR and RC strengthening f/b R shoulder ROM ex's along with core stabilization and treatment to reduce bicep tendon pain with tossing of objects. Bicep strengthening.
--- NOTE | 2023-12-10 09:00 | PT.OTN ---
Current Diagnoses Impingement syndrome of right shoulder (12/10/23) Strain of unspecified muscle, fascia and tendon at shoulder and upper arm level, right arm, subsequent encounter (12/10/23) Civilian activity done for income or pay (12/10/23) Physical Therapy Treatment Note PT-OP-A Visit Information Start: 09/05/23 17:27 Freq: Status: Active Protocol: Document 12/10/23 08:20 SP (Rec: 12/10/23 09:01 SP [id number]) Out-Patient Physical Therapy Visit Information Visit Information Visit Type Treatment Note Visit Note New auth 08/15 visits used through 12/27/23. Visit Start Time 08:20 Visit Stop Time 09:00 Visit Number 08/15 Number of ASSEMBLER INSTALLER [employer]UCTURES Visits 2 Evaluation Information Evaluation Date 09/10/23 Precautions Precautions Per intake form: hearing problems, arthritis, neck & back pain. PT-OP-B Current Condition Start: 09/05/23 17:27 Freq: Status: Active Protocol: Document 09/10/23 07:35 LRN (Rec: 09/10/23 08:18 LRN [id number]) Current Condition History of Current Condition Onset Date 2022 Current Complaints R shdr pain with reaching forward History of Current Condition Pt reports he was pulling wire overhead and the next morning couldn't lift his arm because of pain at the posterior R shoulder joint and if leaning on the elbow in his car, he has pain in the same location. States he is getting a little better because he can lift his arm, but feels a strain at ~30 deg's AB of the arm, and feels something is catching when he reaches to turn his radio on in his car. He denies pain with lifting. Pt reports no prior history of pain. 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 Pt is R handed. Every once in awhile he has pain with sleeping while on the R shoulder. His pain is relieved by turning to the other side and resting his arm on a pillow. Prior Treatments and Tests Pt reports X-rays taken were negative for bony changes. Future Testing and Treatments Planned None Treatment Goals Patient/Caregiver Goals Pt goal's: - learning self care to help make shoulder stronger - be able to work at prior level of function (Full painfree ROM for: throwing baseball and golfing). 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 PT-OP-C Subjective Start: 09/05/23 17:27 Freq: Status: Active Protocol: Document 12/10/23 08:20 SP (Rec: 12/10/23 09:01 SP [id number]) OP-PT Subjective Patient Comments Patient Comments Pt reports every now and then gets click and pop in R shld but adjust positioning and then is fine. The job doing now looking up alot and neck getting tired, can be hard and tiring at times lifting items to side to shoulder level. 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 He does find himself sitting on floor and laying on side to get to areas needed and weakness raising arm out side holds. PT-OP-E Functional Tests Start: 09/05/23 17:27 Freq: Status: Active Protocol: Document 09/10/23 07:35 LRN (Rec: 09/10/23 08:18 LRN [id number]) Functional Tests Apley's Scratch Test Action 1- Left Below spine of scapula Action 1- Right On spine of scapula Action 2- Left T2 Action 2- Right T2 Action 3- Left T10 Action 3- Right T12 PT-OP-H Neuro Start: 09/05/23 17:27 Freq: Status: Active Protocol: Document 09/10/23 07:35 LRN (Rec: 09/10/23 08:18 LRN [id number]) Sensation Evaluation Gross Sensation Gross Sensation WNL PT-OP-J Posture/Palpation/Skin Start: 09/05/23 17:27 Freq: Status: Active Protocol: Document 09/10/23 07:35 LRN (Rec: 09/10/23 08:18 LRN [id number]) Posture Evaluation Position Standing Shoulder Posture (R) Rounded,(R) Forward,(R) Elevated Scapula Posture (R) Depressed Arm Posture (L) Internally Rotated,(R) Internally Rotated Knee Posture (L) Genu Varus,(R) Genu Varus Comments Posture Comments Neck shifted left, increased lordosis, protruding abdomen, atrophy of R dominant shoulder ms (UT, Supr, infra, Teres Major & Minor, Deltoids) Palpation Assessment Location R shoulder Palpation Location Tender Minor > Teres jason Palpation Findings Tenderness PT-OP-K Range of Motion Start: 09/05/23 17:27 Freq: Status: Active Protocol: Document 12/03/23 09:04 SP (Rec: 12/03/23 09:17 SP [id number]) Shoulder Goniometric Range of Motion Shoulder Left Passive Internal Rotation 90 Right Active Testing Position Sitting Flexion 153 Extension 71 Abduction 167 External Rotation at 0 degrees Abduction 78 Internal Rotation Behind Back (text) T11 Comments AROM R shld gains seated change since 10/29/23: FF 153 deg gain 5 deg ABD 71 deg gain 17 deg ER at 0 Deg ABD: 78 deg gain 13 degIR behing back: T11 no change Left Active Shoulder ROM WFL Yes Testing Position Sitting Flexion 141 Extension 54 Abduction 169 External Rotation at 0 degrees Abduction 78 Internal Rotation Behind Back (text) T9 Comments AROM L shld seated change since 10/29/23: FF 141deg loss of 16 deg ABD 169 deg loss of 1 deg ER at 0 deg ABD: 78 deg gain of 13 deg IR behing back: T9 gain 1 vertebra evation ROM PT-OP-L Special Tests Start: 09/05/23 17:27 Freq: Status: Active Protocol: Document 09/12/23 08:19 LRN (Rec: 09/12/23 09:10 LRN [id number]) Special Tests Shoulder Special Tests [place] Test Test Results ? positive Comments Click felt once, then was not able to reproduce. PT-OP-M Strength Start: 09/05/23 17:27 Freq: Status: Active Protocol: Document 10/29/23 08:20 LRN (Rec: 10/29/23 09:43 LRN [id number]) Shoulder Strength Shoulder Manual Muscle Testing Right Flexion 5 Normal Abduction (C5) 3+ Fair+ External Rotation 4+ Good+ Internal Rotation 4+ Good+ Comments Pain with AB. PT-OP-Q Treatments Start: 09/05/23 17:27 Freq: Status: Active Protocol: Document 12/10/23 08:20 SP (Rec: 12/10/23 09:01 SP [id number]) Cardio Equipment Upper Body Ergometer (UBE) Duration (Minutes) 8 RPM 55 Seat Position 10 Height 4 (3 min) >6 (3 min)- fwd & bwd Other Arm throw motion/position, alternating [id number] direction Therapeutic Exercises Sidelying Exercises ABD Sidelying Exercise Name trialed side plank ABD- DC discomfort> Floor on side ABD Side right Resistance 5# DB Equipment Used DIscussed trial at home 3# DB vs 5# DB for tiring no discomfort- declinedHO Reps/Minutes 2x10 Comments cued slower pacing, humeral ER - little tendon rolling pops but not painful open book Sidelying Exercise Name progressed- added wt to HEP Side right Resistance 5# DB Reps/Minutes 2x10 reps Comments little popping, went away cues humeral ER, cued slower pacing Standing Exercises bicep curls Standing Exercise Name Initiated per PT POC: 3 pron/ sup/thumb up Side bilateral Resistance 10# DB each UE Reps/Minutes 10 reps each position, 10 pause between positions recovery Comments pnfree, muscle tiring body blade Standing Exercise Name trialed in PT: fwd punch, OH punch, Abd @ 90deg, ABD arching side OH Side right Reps/Minutes 2x 30 sec each, ABD arched 2x 20 sec before stop tired Comments pnfree, tiring (has a shaker wt home) Ball toss motion Standing Exercise Name standin. abd 90deg elbow 90 deg quick bounce at wall 2. throw into mat Side bilateral Resistance red wt ball Reps/Minutes 1. 3 x20 quick eccentric return 2. hard throw into mat x20 Comments pnfree, 1. tiring 2. slight tension discomfort mid/distal bicep stretch ok bicep stretch Standing Exercise Name reviewed self stretch Side right Equipment Used wall hand anchored at wall, trunk rotation L Reps/Minutes 20 SH x2 Comments good stretch response, no pain Other Exercises plank Other Exercise Name 1. elbow & feet- added to HEP declined HO 2. tall on straight arms Side bilateral Reps/Minutes 1. 28 sec 2. 3 sec before wrists started hurting. Comments pnfree tiring core and shoulders- will continue home off elbows ball walk out Other Exercise Name trialed for WB Reps/Minutes 5 reps Comments irritated wrists so stopped PT-OP-R Modalities Start: 09/05/23 17:27 Freq: Status: Active Protocol: Document 10/25/23 07:36 SP (Rec: 10/25/23 08:20 SP [id number]) Ultrasound Therapy Treatment R shld Patient Position Supine Frequency Setting (mHz) 3 Duty Cycle 50% Intensity Setting (w/cm2) 1.5 Comments prox bicep, distal pec PT-OP-T Assessment and Plan Start: 09/05/23 17:27 Freq: Status: Active Protocol: Document 12/10/23 08:20 SP (Rec: 12/10/23 09:01 SP [id number]) Physical Therapy Assessment Goals Three Impairment Decreased R shoulder strength Impairment R shoulder strength is 5/5 except AB 3/5, ER & IR 4+/5 Penitentiary Goal (LTG) Improve R shoulder strength with pt able to work at his prior level of function without pain. 10/18/23: PRogressing noted about 1 hr after yard work and throwing ball with dog resting in chair mid bicep hurting some but went away. 10/22/23: Pt only has pain at work or home when tossing an object. Pain is at biceps tendon at bicipital groove. 10/29/23: Flex 5/5, AB 3/5 w/ pain, ER/IR 4+/5 without pain. 12/10/23: GOAL MET: no pain at work including OH and out to side motions. LTG Duration 8 wks-12/27/23 GOAL MET Two Impairment Decreased R shoulder AROM due to pain. Impairment Sitting (in deg's): Flex 137 R , 160 R; AB 148 R, 158 L; ER ( 0 deg's AB) 57 R, 62 L; IR T12 R, T10 L. Short Term Goal (STG) Improve R scapulohumeral rhythm with pt able to perform R shoulder AROM without pain. 10/18/23: GOAL MET: no pain into FROM now. STG Duration 4 wks-10/11/23 (GOAL MET ) Supercharge Repair Supervisor Goal (LTG) Improve R shoulder ROM with pt able to throw a baseball and golf with minimal to no discomfort. 09/26/23: As measured by Vivien Howard 09/20/23: 141 deg AROM right shoulder flexion (?seated/sup) and 135 deg post shoulder ER and IR with band. 10/14/23: added wall wt ball 90 /90, con & eccentric abd/ir & er TB. 10/18/23: Progressing no pain with swinging golf club in PT, hasn't gone golfing yet, throwing ball into mat in PT little pain in mid bicep but throws tennis ball into wall home and loosens up but not full strength at outside wall home. R shld: FF 152, ABD 162 , ER 79, IR T12. L shld: FF 158, ABD 172 , ER 75, IR T10. 10/22/23: Pain in biceps throwing ball for dog unless does warm up first by tossing ball into wall. Not yet golfed. 11/18/23: ABle to swing a golf club w/o pain. 12/03/23: progressing: FF 153 deg gain 5 deg ABD 71 deg gain 17 deg ER at 0 Deg ABD: 78 deg 12/10/23: added weight to open book and shld ABD on side tiring, cued scap set retraction/depression and humeral ER for reduction to no shld tendon pop feeling. LTG Duration 8 wks-12/27/23 progressing 12/10/23 One Impairment Pt lacks appropriate self care HEP Short Term Goal (STG) Pt will be educated in self care pain management (RICE) technique and positioning in partial sidelie for nighttime pain relief. 09/12/23: Pt educated in RICE technique. 09/26/23: Some mornings has stiffness in R shdr when waking but resovles once up walking. Positional traninng given for best R shoulder supported positions. STG Duration 4 wks-10/11/23 (09/26/23: MET GOAL) Supercharge Repair Supervisor Goal (LTG) Pt will be independent in a self care HEP of R shoulder/ scapula strengthening exercises and neck/R shoulder ROM ex's. 09/26/23: On 09/10/23 HEP of: Scap retract/depression & TB shdr ER/IR. Issued Lev 2 TB. On 09/12/23 HEP: C/S AROM stretching. On 09/20/23: HEP of Sidelying IR AROM, seated body over UE PROM ER and seated AROM ER 10/18/23: progressing wall ball , stand abd ER /c TB, PRone Ts wt and Ys AROM. 10/25/23: supine tball D2 flexion & HABD AROM>5# DB, stand TB Y off wall. 11/14/23: HEP: Doorway pec stretch & throw training/ strengthening, IR stretch, lat pull down standing w/ alternative of supine positioning. 12/10/23: added weight to open book and shld ABD on side tiring, cued scap set retraction/depression and humeral ER for reduction to no shld tendon pop feeling. LTG Duration 8 wks-12/27/23 progressed . Assessment Summary Assessment 58 y/o pt w/end range R shoulder impingement w/pn in anter brachium; scapular dysfunction most notably R lower trap/Rhomboid major. 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 Pt has discomfort WB on wrists so modified and did well plank off elbows with no pain in R shld. Pt would benefit continue 2 more appts to findalize HEP and update last appt plan to continue home after seeing PT. Physical Therapy Plan Frequency and Duration Frequency of Treatment 1x/Week Duration of treatment (weeks) 8 Plan of Care Start Date 10/29/23 Plan of Care End Date 12/27/23 Therapeutic Interventions Therapeutic Interventions Home Exercise Program,Joint Mobilizations,Manual Therapy, Neuromuscular Re-education, Self-Care/Home Management,Soft Tissue Mobilization,Taping, Therapeutic Activities, Therapeutic Exercises Modalities Cold Pack/Ice Massage,Hot Packs,Ultrasound Next Visit Focus/Plan Next Note Type Treatment Note Next Visit Plan PT: Remeasures R shdr flex/AB AROM /c PT last tx, noted decrease LUE AROM vs measured in October. REcheck strengthen IR's in throw position (EC/CON). Check progressed bicep strengthening, with focus on proper ScapHumRhyuthm & core stab over ball. POC: Cont to work on improving R shoulder flex, IR ROM/ strength (in throw postion), core stab, ?JMT; less STM. Recheck response of focus on contraction of R rhomboid major and lower trap with ex's for proper scapuolohumeral rhythm: D2 flexion stand vs supine bridged over 55 cm tball(what has home) with focus on R scapulohumeral movement. More scapulo humeral rhythm, scap stab strengthening. Pt to focus on self STMs/C. ROM. POC: Improving R SHR and RC strengthening f/b R shoulder ROM ex's along with core stabilization and treatment to reduce bicep tendon pain with tossing of objects. Bicep strengthening.
--- NOTE | 2023-12-12 15:04 | PT.OTN ---
Current Diagnoses Impingement syndrome of right shoulder (12/12/23) Strain of unspecified muscle, fascia and tendon at shoulder and upper arm level, right arm, subsequent encounter (12/12/23) Civilian activity done for income or pay (12/12/23) Physical Therapy Treatment Note PT-OP-A Visit Information Start: 09/05/23 17:27 Freq: Status: Active Protocol: Document 12/12/23 08:09 AB (Rec: 12/12/23 09:01 AB [id number]) Out-Patient Physical Therapy Visit Information Visit Information Visit Type Treatment Note Visit Note New auth 08/15 visits used through 12/27/23. Visit Start Time 08:16 Visit Stop Time 08:59 Visit Number 09/14 Number of SENIOR QUALITY CONTROL INSPECTOR Visits 3 Evaluation Information Evaluation Date 09/10/23 Precautions Precautions Per intake form: hearing problems, arthritis, neck & back pain. PT-OP-B Current Condition Start: 09/05/23 17:27 Freq: Status: Active Protocol: Document 09/10/23 07:35 LRN (Rec: 09/10/23 08:18 LRN [id number]) Current Condition History of Current Condition Onset Date 2022 Current Complaints R shdr pain with reaching forward History of Current Condition Pt reports he was pulling wire overhead and the next morning couldn't lift his arm because of pain at the posterior R shoulder joint and if leaning on the elbow in his car, he has pain in the same location. States he is getting a little better because he can lift his arm, but feels a strain at ~30 deg's AB of the arm, and feels something is catching when he reaches to turn his radio on in his car. He denies pain with lifting. Pt reports no prior history of pain. 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 Pt is R handed. Every once in awhile he has pain with sleeping while on the R shoulder. His pain is relieved by turning to the other side and resting his arm on a pillow. Prior Treatments and Tests Pt reports X-rays taken were negative for bony changes. Future Testing and Treatments Planned None Treatment Goals Patient/Caregiver Goals Pt goal's: - learning self care to help make shoulder stronger - be able to work at prior level of function (Full painfree ROM for: throwing baseball and golfing). 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 PT-OP-C Subjective Start: 09/05/23 17:27 Freq: Status: Active Protocol: Document 12/12/23 08:09 AB (Rec: 12/12/23 09:01 AB [id number]) OP-PT Subjective Patient Comments Patient Comments Patient comments there are not a lot of problems now extimates 90% back to normal. Patient reports he can work over head, but has clicking and popping with certain movements. AROM 141 deg right and left shoulder flexion start of session. Patient raises UE start of session with palm down, slouched posture reports popping/noise in right shoulder. PT-OP-E Functional Tests Start: 09/05/23 17:27 Freq: Status: Active Protocol: Document 09/10/23 07:35 LRN (Rec: 09/10/23 08:18 LRN [id number]) Functional Tests Apley's Scratch Test Action 1- Left Below spine of scapula Action 1- Right On spine of scapula Action 2- Left T2 Action 2- Right T2 Action 3- Left T10 Action 3- Right T12 PT-OP-H Neuro Start: 09/05/23 17:27 Freq: Status: Active Protocol: Document 09/10/23 07:35 LRN (Rec: 09/10/23 08:18 LRN [id number]) Sensation Evaluation Gross Sensation Gross Sensation WNL PT-OP-J Posture/Palpation/Skin Start: 09/05/23 17:27 Freq: Status: Active Protocol: Document 09/10/23 07:35 LRN (Rec: 09/10/23 08:18 LRN [id number]) Posture Evaluation Position Standing Shoulder Posture (R) Rounded,(R) Forward,(R) Elevated Scapula Posture (R) Depressed Arm Posture (L) Internally Rotated,(R) Internally Rotated Knee Posture (L) Genu Varus,(R) Genu Varus Comments Posture Comments Neck shifted left, increased lordosis, protruding abdomen, atrophy of R dominant shoulder ms (UT, Supr, infra, Teres Major & Minor, Deltoids) Palpation Assessment Location R shoulder Palpation Location Tender Minor > Teres jason Palpation Findings Tenderness PT-OP-K Range of Motion Start: 09/05/23 17:27 Freq: Status: Active Protocol: Document 12/03/23 09:04 SP (Rec: 12/03/23 09:17 SP [id number]) Shoulder Goniometric Range of Motion Shoulder Left Passive Internal Rotation 90 Right Active Testing Position Sitting Flexion 153 Extension 71 Abduction 167 External Rotation at 0 degrees Abduction 78 Internal Rotation Behind Back (text) T11 Comments AROM R shld gains seated change since 10/29/23: FF 153 deg gain 5 deg ABD 71 deg gain 17 deg ER at 0 Deg ABD: 78 deg gain 13 degIR behing back: T11 no change Left Active Shoulder ROM WFL Yes Testing Position Sitting Flexion 141 Extension 54 Abduction 169 External Rotation at 0 degrees Abduction 78 Internal Rotation Behind Back (text) T9 Comments AROM L shld seated change since 10/29/23: FF 141deg loss of 16 deg ABD 169 deg loss of 1 deg ER at 0 deg ABD: 78 deg gain of 13 deg IR behing back: T9 gain 1 vertebra evation ROM PT-OP-L Special Tests Start: 09/05/23 17:27 Freq: Status: Active Protocol: Document 09/12/23 08:19 LRN (Rec: 09/12/23 09:10 LRN [id number]) Special Tests Shoulder Special Tests [place] Test Test Results ? positive Comments Click felt once, then was not able to reproduce. PT-OP-M Strength Start: 09/05/23 17:27 Freq: Status: Active Protocol: Document 10/29/23 08:20 LRN (Rec: 10/29/23 09:43 LRN [id number]) Shoulder Strength Shoulder Manual Muscle Testing Right Flexion 5 Normal Abduction (C5) 3+ Fair+ External Rotation 4+ Good+ Internal Rotation 4+ Good+ Comments Pain with AB. PT-OP-Q Treatments Start: 09/05/23 17:27 Freq: Status: Active Protocol: Document 12/12/23 08:09 AB (Rec: 12/12/23 09:01 AB [id number]) Therapeutic Exercises Standing Exercises scapular strengthening Standing Exercise Name 1. lat 2. row HEP progression to level 5 band Side bilateral Resistance level 5 band Reps/Minutes 15X2 Comments verbal cues for one forward and elbows fleed for row single arm pec stretch Side bilateral Reps/Minutes 60 sec each UE X 2 Comments prior to rows Stat[place] Standing Exercise Name rhythmic oscillation with yellow therabar, statue of liberty position Side right Resistance yellow therabar Reps/Minutes one minute X1 Ball toss motion Standing Exercise Name standin. abd 90deg elbow 90 deg quick bounce at wall 2. throw into mat Side bilateral Resistance red wt ball Reps/Minutes 1. 3 x20 quick eccentric return 2. hard throw into mat x20 Manual Therapy Treatment Soft Tissue Mobilization R shld Body Location R pec, post cuff, lat Mobilization Type Rolling,Sustained Pressure, Other Intensity/Depth Moderate Body Position Hooklying Comments PROM humeral IR/ER, punching motion /c ed self STMs same directioning Joint Mobilizations R GH jt Direction inferior, AP Grade III R scapulothoracic Direction into depression; and adduction Grade III Body Position Sidelying Reps/Duration X15 eac PT-OP-R Modalities Start: 09/05/23 17:27 Freq: Status: Active Protocol: Document 10/25/23 07:36 SP (Rec: 10/25/23 08:20 SP [id number]) Ultrasound Therapy Treatment R shld Patient Position Supine Frequency Setting (mHz) 3 Duty Cycle 50% Intensity Setting (w/cm2) 1.5 Comments prox bicep, distal pec PT-OP-T Assessment and Plan Start: 09/05/23 17:27 Freq: Status: Active Protocol: Document 12/12/23 08:09 AB (Rec: 12/12/23 09:01 AB [id number]) Physical Therapy Assessment Goals Two Impairment Decreased R shoulder AROM due to pain. Impairment Sitting (in deg's): Flex 137 R , 160 R; AB 148 R, 158 L; ER ( 0 deg's AB) 57 R, 62 L; IR T12 R, T10 L. Short Term Goal (STG) Improve R scapulohumeral rhythm with pt able to perform R shoulder AROM without pain. 10/18/23: GOAL MET: no pain into FROM now. STG Duration 4 wks-10/11/23 (GOAL MET ) Incident Response Analyst Goal (LTG) Improve R shoulder ROM with pt able to throw a baseball and golf with minimal to no discomfort. 09/26/23: As measured by Vivien Howard 09/20/23: 141 deg AROM right shoulder flexion (?seated/sup) and 135 deg post shoulder ER and IR with band. 10/14/23: added wall wt ball 90 /90, con & eccentric abd/ir & er TB. 10/18/23: Progressing no pain with swinging golf club in PT, hasn't gone golfing yet, throwing ball into mat in PT little pain in mid bicep but throws tennis ball into wall home and loosens up but not full strength at outside wall home. R shld: FF 152, ABD 162 , ER 79, IR T12. L shld: FF 158, ABD 172 , ER 75, IR T10. 10/22/23: Pain in biceps throwing ball for dog unless does warm up first by tossing ball into wall. Not yet golfed. 11/18/23: ABle to swing a golf club w/o pain. 12/03/23: progressing: FF 153 deg gain 5 deg ABD 71 deg gain 17 deg ER at 0 Deg ABD: 78 deg 12/10/23: added weight to open book and shld ABD on side tiring, cued scap set retraction/depression and humeral ER for reduction to no shld tendon pop feeling. LTG Duration 8 wks-12/27/23 progressing 12/10/23 One Impairment Pt lacks appropriate self care HEP Short Term Goal (STG) Pt will be educated in self care pain management (RICE) technique and positioning in partial sidelie for nighttime pain relief. 09/12/23: Pt educated in RICE technique. 09/26/23: Some mornings has stiffness in R shdr when waking but resovles once up walking. Positional traninng given for best R shoulder supported positions. STG Duration 4 wks-10/11/23 (09/26/23: MET GOAL) Incident Response Analyst Goal (LTG) Pt will be independent in a self care HEP of R shoulder/ scapula strengthening exercises and neck/R shoulder ROM ex's. 09/26/23: On 09/10/23 HEP of: Scap retract/depression & TB shdr ER/IR. Issued Lev 2 TB. On 09/12/23 HEP: C/S AROM stretching. On 09/20/23: HEP of Sidelying IR AROM, seated body over UE PROM ER and seated AROM ER 10/18/23: progressing wall ball , stand abd ER /c TB, PRone Ts wt and Ys AROM. 10/25/23: supine tball D2 flexion & HABD AROM>5# DB, stand TB Y off wall. 11/14/23: HEP: Doorway pec stretch & throw training/ strengthening, IR stretch, lat pull down standing w/ alternative of supine positioning. 12/10/23: added weight to open book and shld ABD on side tiring, cued scap set retraction/depression and humeral ER for reduction to no shld tendon pop feeling. LTG Duration 8 wks-12/27/23 progressed . Assessment Summary Assessment Patient reports popping and clicking eliminated post statue of liberty exercise. Progressed to level 5 band for row and lat pull down for HEP Physical Therapy Plan Frequency and Duration Frequency of Treatment 1x/Week Duration of treatment (weeks) 8 Plan of Care Start Date 10/29/23 Plan of Care End Date 12/27/23 Next Visit Focus/Plan Next Note Type Treatment Note Next Visit Plan Assess chidi to HEP being condensed to every other day for all but pec stretch. PT: Remeasures R shdr flex/AB AROM /c PT last tx, noted decrease LUE AROM vs measured in October. REcheck strengthen IR's in throw position (EC/CON). Check progressed bicep strengthening, with focus on proper ScapHumRhyuthm & core stab over ball. POC: Cont to work on improving R shoulder flex, IR ROM/ strength (in throw postion), core stab, ?JMT; less STM. Recheck response of focus on contraction of R rhomboid major and lower trap with ex's for proper scapuolohumeral rhythm: D2 flexion stand vs supine bridged over 55 cm tball(what has home) with focus on R scapulohumeral movement. More scapulo humeral rhythm, scap stab strengthening. Pt to focus on self STMs/C. ROM. POC: Improving R SHR and RC strengthening f/b R shoulder ROM ex's along with core stabilization and treatment to reduce bicep tendon pain with tossing of objects. Bicep strengthening.
--- NOTE | 2023-12-27 17:42 | PT.OTN ---
Current Diagnoses Impingement syndrome of right shoulder (12/27/23) Strain of unspecified muscle, fascia and tendon at shoulder and upper arm level, right arm, subsequent encounter (12/27/23) Civilian activity done for income or pay (12/27/23) Physical Therapy Treatment Note PT-OP-A Visit Information Start: 09/05/23 17:27 Freq: Status: Active Protocol: Document 12/27/23 08:19 LRN (Rec: 12/27/23 09:07 LRN [id number]) Out-Patient Physical Therapy Visit Information Visit Information Visit Type Treatment Note Visit Start Time 08:19 Visit Stop Time 09:04 Visit Number 10/15 Evaluation Information Evaluation Date 09/10/23 Precautions Precautions Per intake form: hearing problems, arthritis, neck & back pain. PT-OP-B Current Condition Start: 09/05/23 17:27 Freq: Status: Active Protocol: Document 09/10/23 07:35 LRN (Rec: 09/10/23 08:18 LRN [id number]) Current Condition History of Current Condition Onset Date 2022 Current Complaints R shdr pain with reaching forward History of Current Condition Pt reports he was pulling wire overhead and the next morning couldn't lift his arm because of pain at the posterior R shoulder joint and if leaning on the elbow in his car, he has pain in the same location. States he is getting a little better because he can lift his arm, but feels a strain at ~30 deg's AB of the arm, and feels something is catching when he reaches to turn his radio on in his car. He denies pain with lifting. Pt reports no prior history of pain. 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 Pt is R handed. Every once in awhile he has pain with sleeping while on the R shoulder. His pain is relieved by turning to the other side and resting his arm on a pillow. Prior Treatments and Tests Pt reports X-rays taken were negative for bony changes. Future Testing and Treatments Planned None Treatment Goals Patient/Caregiver Goals Pt goal's: - learning self care to help make shoulder stronger - be able to work at prior level of function (Full painfree ROM for: throwing baseball and golfing). 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 PT-OP-C Subjective Start: 09/05/23 17:27 Freq: Status: Active Protocol: Document 12/27/23 08:19 LRN (Rec: 12/27/23 09:07 LRN [id number]) OP-PT Subjective Patient Comments Patient Comments Has had family visiting, has been stretching daily, not noticed pain. No pain at work . PT-OP-E Functional Tests Start: 09/05/23 17:27 Freq: Status: Active Protocol: Document 09/10/23 07:35 LRN (Rec: 09/10/23 08:18 LRN [id number]) Functional Tests Apley's Scratch Test Action 1- Left Below spine of scapula Action 1- Right On spine of scapula Action 2- Left T2 Action 2- Right T2 Action 3- Left T10 Action 3- Right T12 PT-OP-H Neuro Start: 09/05/23 17:27 Freq: Status: Active Protocol: Document 09/10/23 07:35 LRN (Rec: 09/10/23 08:18 LRN [id number]) Sensation Evaluation Gross Sensation Gross Sensation WNL PT-OP-J Posture/Palpation/Skin Start: 09/05/23 17:27 Freq: Status: Active Protocol: Document 09/10/23 07:35 LRN (Rec: 09/10/23 08:18 LRN [id number]) Posture Evaluation Position Standing Shoulder Posture (R) Rounded,(R) Forward,(R) Elevated Scapula Posture (R) Depressed Arm Posture (L) Internally Rotated,(R) Internally Rotated Knee Posture (L) Genu Varus,(R) Genu Varus Comments Posture Comments Neck shifted left, increased lordosis, protruding abdomen, atrophy of R dominant shoulder ms (UT, Supr, infra, Teres Major & Minor, Deltoids) Palpation Assessment Location R shoulder Palpation Location Tender Minor > Teres jason Palpation Findings Tenderness PT-OP-K Range of Motion Start: 09/05/23 17:27 Freq: Status: Active Protocol: Document 12/27/23 08:19 LRN (Rec: 12/27/23 09:07 LRN [id number]) Shoulder Goniometric Range of Motion Shoulder Right Passive Testing Position Supine Flexion 90 Internal Rotation 83 Left Passive Testing Position Supine Flexion 90 Internal Rotation 83 Right Active Testing Position Sitting Flexion 160 Extension 45 Abduction 154 External Rotation at 0 degrees Abduction 68 Internal Rotation Behind Back (text) L1 Left Active Testing Position Sitting Flexion 160 Extension 45 Abduction 156 External Rotation at 0 degrees Abduction 58 Internal Rotation Behind Back (text) L2 PT-OP-L Special Tests Start: 09/05/23 17:27 Freq: Status: Active Protocol: Document 09/12/23 08:19 LRN (Rec: 09/12/23 09:10 LRN [id number]) Special Tests Shoulder Special Tests [place] Test Test Results ? positive Comments Click felt once, then was not able to reproduce. PT-OP-M Strength Start: 09/05/23 17:27 Freq: Status: Active Protocol: Document 12/27/23 08:19 LRN (Rec: 12/27/23 09:07 LRN [id number]) Shoulder Strength Shoulder Manual Muscle Testing Right External Rotation 4+ Good+ Comments Strength is 5/5 except as indicated above. Left Comments Strength is 5/5. PT-OP-Q Treatments Start: 09/05/23 17:27 Freq: Status: Active Protocol: Document 12/27/23 08:19 LRN (Rec: 12/27/23 09:07 LRN [id number]) Cardio Equipment Upper Body Ergometer (UBE) Duration (Minutes) 8 RPM 55 Seat Position 10 Height 4 (3 min) & 7 (80 rpm) fwd & bwd Other Arm throw motion/position, alternating [id number] direction Therapeutic Exercises Supine Exercises R shoulder stretch Supine Exercise Name Flex, ER, IR Side bilateral Reps/Minutes 10' Comments ROM taken Sidelying Exercises sleeper stretch Sidelying Exercise Name Sleeper stretch R>L Side bilateral Reps/Minutes 10 SH x 10 Sitting Exercises Shoulder AROM Sitting Exercise Name Flex, AB, ER, IR (reaching behind back) Side bilateral Reps/Minutes 13' Comments ROM taken Standing Exercises scapular strengthening Standing Exercise Name Shoulder flex for lower trap/ rhomboid strengthening Side bilateral Resistance Lev 3 TB Reps/Minutes 15x Comments reviewed single arm pec stretch Side bilateral Reps/Minutes 60 sec each UE X 2 Comments prior to rows Statue of liberty Standing Exercise Name rhythmic oscillation with yellow therabar, statue of liberty position Side right Resistance yellow therabar Reps/Minutes one minute X1 Comments reviewed. Other Exercises Prone on TBall Other Exercise Name Shoulder flexion holds Side bilateral Reps/Minutes 5 SH x 10 PT-OP-R Modalities Start: 09/05/23 17:27 Freq: Status: Active Protocol: Document 10/25/23 07:36 SP (Rec: 10/25/23 08:20 SP [id number]) Ultrasound Therapy Treatment R shld Patient Position Supine Frequency Setting (mHz) 3 Duty Cycle 50% Intensity Setting (w/cm2) 1.5 Comments prox bicep, distal pec PT-OP-T Assessment and Plan Start: 09/05/23 17:27 Freq: Status: Active Protocol: Document 12/27/23 08:19 LRN (Rec: 12/27/23 09:07 LRN [id number]) Physical Therapy Assessment Goals Three Impairment Decreased R shoulder strength Impairment R shoulder strength is 5/5 except AB 3/5, ER & IR 4+/5 Auto Suspension And Steering Mechanic Goal (LTG) Improve R shoulder strength with pt able to work at his prior level of function without pain. 10/18/23: PRogressing noted about 1 hr after yard work and throwing ball with dog resting in chair mid bicep hurting some but went away. 10/22/23: Pt only has pain at work or home when tossing an object. Pain is at biceps tendon at bicipital groove. 10/29/23: Flex 5/5, AB 3/5 w/ pain, ER/IR 4+/5 without pain. LTG Duration 8 wks-12/27/23 progressing 10/29/23 Two Impairment Decreased R shoulder AROM due to pain. Impairment Sitting (in deg's): Flex 137 R , 160 R; AB 148 R, 158 L; ER ( 0 deg's AB) 57 R, 62 L; IR T12 R, T10 L. Short Term Goal (STG) Improve R scapulohumeral rhythm with pt able to perform R shoulder AROM without pain. 10/18/23: GOAL MET: no pain into FROM now. STG Duration 4 wks-10/11/23 (GOAL MET ) Auto Suspension And Steering Mechanic Goal (LTG) Improve R shoulder ROM with pt able to throw a baseball and golf with minimal to no discomfort. 09/26/23: As measured by Vivien Howard 09/20/23: 141 deg AROM right shoulder flexion (?seated/sup) and 135 deg post shoulder ER and IR with band. 6/10/24: added wall wt ball 90 /90, con & eccentric abd/ir & er TB. 10/18/23: Progressing no pain with swinging golf club in PT, hasn't gone golfing yet, throwing ball into mat in PT little pain in mid bicep but throws tennis ball into wall home and loosens up but not full strength at outside wall home. R shld: FF 152, ABD 162 , ER 79, IR T12. L shld: FF 158, ABD 172 , ER 75, IR T10. 10/22/23: Pain in biceps throwing ball for dog unless does warm up first by tossing ball into wall. Not yet golfed. 11/18/23: ABle to swing a golf club w/o pain. 12/03/23: progressing: FF 153 deg gain 5 deg ABD 71 deg gain 17 deg ER at 0 Deg ABD: 78 deg 12/10/23: added weight to open book and shld ABD on side tiring, cued scap set retraction/depression and humeral ER for reduction to no shld tendon pop feeling. 12/27/23: Pt noted he has not done throwing activities but in the past has been able to throw a ball for his dog w/o pain. LTG Duration 8 wks-12/27/23 (12/27/23: MET GOAL) One Impairment Pt lacks appropriate self care HEP Short Term Goal (STG) Pt will be educated in self care pain management (RICE) technique and positioning in partial sidelie for nighttime pain relief. 09/12/23: Pt educated in RICE technique. 09/26/23: Some mornings has stiffness in R shdr when waking but resovles once up walking. Positional traninng given for best R shoulder supported positions. STG Duration 4 wks-10/11/23 (09/26/23: MET GOAL) Care Home Goal (LTG) Pt will be independent in a self care HEP of R shoulder/ scapula strengthening exercises and neck/R shoulder ROM ex's. 09/26/23: On 09/10/23 HEP of: Scap retract/depression & TB shdr ER/IR. Issued Lev 2 TB. On 09/12/23 HEP: C/S AROM stretching. On 09/20/23: HEP of Sidelying IR AROM, seated body over UE PROM ER and seated AROM ER 10/18/23: progressing wall ball , stand abd ER /c TB, PRone Ts wt and Ys AROM. 10/25/23: supine tball D2 flexion & HABD AROM>5# DB, stand TB Y off wall. 11/14/23: HEP: Doorway pec stretch & throw training/ strengthening, IR stretch, lat pull down standing w/ alternative of supine positioning. 12/10/23: added weight to open book and shld ABD on side tiring, cued scap set retraction/depression and humeral ER for reduction to no shld tendon pop feeling. LTG Duration 8 wks-12/27/23 (12/27/23: MET GOAL) Assessment Summary Assessment Pt is a 58 y/o initially w/end range R shoulder impingement w/pn in anter brachium; scapular dysfunction most notably R lower trap/Rhomboid major. He attends today with reports fo no R shoulder pain for the past couple weeks, but hasn't been doing much because on vacation. His R shoulder AROM & PROM appear normal and strength is normal except for slight weakness with ER, as also noted to have slight tightness with IR and good SHR except at ~60 deg's AB during movement flex to neutra. Today he shows good tolerance and understanding of pec stretch in doorway and understanding of doing self detention exercises. The pt is ready for discharge to his HEP and pt feels ready for DC. Physical Therapy Plan Discharge Physical Therapy Discharge Reasons Goals Met Discharge Comments Pt did very well in physical therapy. Thank you for your referral.
--- NOTE | 2023-12-27 17:45 | PT.OTN ---
Current Diagnoses Impingement syndrome of right shoulder (12/27/23) Strain of unspecified muscle, fascia and tendon at shoulder and upper arm level, right arm, subsequent encounter (12/27/23) Civilian activity done for income or pay (12/27/23) Physical Therapy Treatment Note PT-OP-A Visit Information Start: 09/05/23 17:27 Freq: Status: Active Protocol: Document 12/27/23 08:19 LRN (Rec: 12/27/23 09:07 LRN [id number]) Out-Patient Physical Therapy Visit Information Visit Information Visit Type Treatment Note Visit Start Time 08:19 Visit Stop Time 09:04 Visit Number 10/15 Evaluation Information Evaluation Date 09/10/23 Precautions Precautions Per intake form: hearing problems, arthritis, neck & back pain. PT-OP-B Current Condition Start: 09/05/23 17:27 Freq: Status: Active Protocol: Document 09/10/23 07:35 LRN (Rec: 09/10/23 08:18 LRN [id number]) Current Condition History of Current Condition Onset Date 2022 Current Complaints R shdr pain with reaching forward History of Current Condition Pt reports he was pulling wire overhead and the next morning couldn't lift his arm because of pain at the posterior R shoulder joint and if leaning on the elbow in his car, he has pain in the same location. States he is getting a little better because he can lift his arm, but feels a strain at ~30 deg's AB of the arm, and feels something is catching when he reaches to turn his radio on in his car. He denies pain with lifting. Pt reports no prior history of pain. 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 Pt is R handed. Every once in awhile he has pain with sleeping while on the R shoulder. His pain is relieved by turning to the other side and resting his arm on a pillow. Prior Treatments and Tests Pt reports X-rays taken were negative for bony changes. Future Testing and Treatments Planned None Treatment Goals Patient/Caregiver Goals Pt goal's: - learning self care to help make shoulder stronger - be able to work at prior level of function (Full painfree ROM for: throwing baseball and golfing). 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 PT-OP-C Subjective Start: 09/05/23 17:27 Freq: Status: Active Protocol: Document 12/27/23 08:19 LRN (Rec: 12/27/23 09:07 LRN [id number]) OP-PT Subjective Patient Comments Patient Comments Has had family visiting, has been stretching daily, not noticed pain. No pain at work . Patient Questionnaires Quick Dash- Upper Extremity Quick Dash UE Score 4.54 Quick Dash UE Impairment 1 to 19% Impaired (Score 1-19) PT-OP-E Functional Tests Start: 09/05/23 17:27 Freq: Status: Active Protocol: Document 09/10/23 07:35 LRN (Rec: 09/10/23 08:18 LRN [id number]) Functional Tests Apley's Scratch Test Action 1- Left Below spine of scapula Action 1- Right On spine of scapula Action 2- Left T2 Action 2- Right T2 Action 3- Left T10 Action 3- Right T12 PT-OP-H Neuro Start: 09/05/23 17:27 Freq: Status: Active Protocol: Document 09/10/23 07:35 LRN (Rec: 09/10/23 08:18 LRN [id number]) Sensation Evaluation Gross Sensation Gross Sensation WNL PT-OP-J Posture/Palpation/Skin Start: 09/05/23 17:27 Freq: Status: Active Protocol: Document 09/10/23 07:35 LRN (Rec: 09/10/23 08:18 LRN [id number]) Posture Evaluation Position Standing Shoulder Posture (R) Rounded,(R) Forward,(R) Elevated Scapula Posture (R) Depressed Arm Posture (L) Internally Rotated,(R) Internally Rotated Knee Posture (L) Genu Varus,(R) Genu Varus Comments Posture Comments Neck shifted left, increased lordosis, protruding abdomen, atrophy of R dominant shoulder ms (UT, Supr, infra, Teres Major & Minor, Deltoids) Palpation Assessment Location R shoulder Palpation Location Tender Minor > Teres jason Palpation Findings Tenderness PT-OP-K Range of Motion Start: 09/05/23 17:27 Freq: Status: Active Protocol: Document 12/27/23 08:19 LRN (Rec: 12/27/23 09:07 LRN [id number]) Shoulder Goniometric Range of Motion Shoulder Right Passive Testing Position Supine Flexion 90 Internal Rotation 83 Left Passive Testing Position Supine Flexion 90 Internal Rotation 83 Right Active Testing Position Sitting Flexion 160 Extension 45 Abduction 154 External Rotation at 0 degrees Abduction 68 Internal Rotation Behind Back (text) L1 Left Active Testing Position Sitting Flexion 160 Extension 45 Abduction 156 External Rotation at 0 degrees Abduction 58 Internal Rotation Behind Back (text) L2 PT-OP-L Special Tests Start: 09/05/23 17:27 Freq: Status: Active Protocol: Document 09/12/23 08:19 LRN (Rec: 09/12/23 09:10 LRN [id number]) Special Tests Shoulder Special Tests Bailey Test Test Results ? positive Comments Click felt once, then was not able to reproduce. PT-OP-M Strength Start: 09/05/23 17:27 Freq: Status: Active Protocol: Document 12/27/23 08:19 LRN (Rec: 12/27/23 09:07 LRN [id number]) Shoulder Strength Shoulder Manual Muscle Testing Right External Rotation 4+ Good+ Comments Strength is 5/5 except as indicated above. Left Comments Strength is 5/5. PT-OP-Q Treatments Start: 09/05/23 17:27 Freq: Status: Active Protocol: Document 12/27/23 08:19 LRN (Rec: 12/27/23 09:07 LRN [id number]) Cardio Equipment Upper Body Ergometer (UBE) Duration (Minutes) 8 RPM 55 Seat Position 10 Height 4 (3 min) & 7 (80 rpm) fwd & bwd Other Arm throw motion/position, alternating [id number] direction Therapeutic Exercises Supine Exercises R shoulder stretch Supine Exercise Name Flex, ER, IR Side bilateral Reps/Minutes 10' Comments ROM taken Sidelying Exercises sleeper stretch Sidelying Exercise Name Sleeper stretch R>L Side bilateral Reps/Minutes 10 SH x 10 Sitting Exercises Shoulder AROM Sitting Exercise Name Flex, AB, ER, IR (reaching behind back) Side bilateral Reps/Minutes 13' Comments ROM taken Standing Exercises scapular strengthening Standing Exercise Name Shoulder flex for lower trap/ rhomboid strengthening Side bilateral Resistance Lev 3 TB Reps/Minutes 15x Comments reviewed single arm pec stretch Side bilateral Reps/Minutes 60 sec each UE X 2 Comments prior to rows Statue of [place] Standing Exercise Name rhythmic oscillation with yellow therabar, statue of liberty position Side right Resistance yellow therabar Reps/Minutes one minute X1 Comments reviewed. Other Exercises Prone on TBall Other Exercise Name Shoulder flexion holds Side bilateral Reps/Minutes 5 SH x 10 PT-OP-R Modalities Start: 09/05/23 17:27 Freq: Status: Active Protocol: Document 10/25/23 07:36 SP (Rec: 10/25/23 08:20 SP [id number]) Ultrasound Therapy Treatment R shld Patient Position Supine Frequency Setting (mHz) 3 Duty Cycle 50% Intensity Setting (w/cm2) 1.5 Comments prox bicep, distal pec PT-OP-T Assessment and Plan Start: 09/05/23 17:27 Freq: Status: Active Protocol: Document 12/27/23 08:19 LRN (Rec: 12/27/23 09:07 LRN [id number]) Physical Therapy Assessment Goals Three Impairment Decreased R shoulder strength Impairment R shoulder strength is 5/5 except AB 3/5, ER & IR 4+/5 Curtain Fitter Goal (LTG) Improve R shoulder strength with pt able to work at his prior level of function without pain. 10/18/23: PRogressing noted about 1 hr after yard work and throwing ball with dog resting in chair mid bicep hurting some but went away. 10/22/23: Pt only has pain at work or home when tossing an object. Pain is at biceps tendon at bicipital groove. 10/29/23: Flex 5/5, AB 3/5 w/ pain, ER/IR 4+/5 without pain. LTG Duration 8 wks-12/27/23 progressing 10/29/23 Two Impairment Decreased R shoulder AROM due to pain. Impairment Sitting (in deg's): Flex 137 R , 160 R; AB 148 R, 158 L; ER ( 0 deg's AB) 57 R, 62 L; IR T12 R, T10 L. Short Term Goal (STG) Improve R scapulohumeral rhythm with pt able to perform R shoulder AROM without pain. 10/18/23: GOAL MET: no pain into FROM now. STG Duration 4 wks-10/11/23 (GOAL MET ) Nursing Home Goal (LTG) Improve R shoulder ROM with pt able to throw a baseball and golf with minimal to no discomfort. 09/26/23: As measured by Vivien Howard 09/20/23: 141 deg AROM right shoulder flexion (?seated/sup) and 135 deg post shoulder ER and IR with band. 10/14/23: added wall wt ball 90 /90, con & eccentric abd/ir & er TB. 10/18/23: Progressing no pain with swinging golf club in PT, hasn't gone golfing yet, throwing ball into mat in PT little pain in mid bicep but throws tennis ball into wall home and loosens up but not full strength at outside wall home. R shld: FF 152, ABD 162 , ER 79, IR T12. L shld: FF 158, ABD 172 , ER 75, IR T10. 10/22/23: Pain in biceps throwing ball for dog unless does warm up first by tossing ball into wall. Not yet golfed. 11/18/23: ABle to swing a golf club w/o pain. 12/03/23: progressing: FF 153 deg gain 5 deg ABD 71 deg gain 17 deg ER at 0 Deg ABD: 78 deg 12/10/23: added weight to open book and shld ABD on side tiring, cued scap set retraction/depression and humeral ER for reduction to no shld tendon pop feeling. 12/27/23: Pt noted he has not done throwing activities but in the past has been able to throw a ball for his dog w/o pain. LTG Duration 8 wks-12/27/23 (12/27/23: MET GOAL) One Impairment Pt lacks appropriate self care HEP Short Term Goal (STG) Pt will be educated in self care pain management (RICE) technique and positioning in partial sidelie for nighttime pain relief. 09/12/23: Pt educated in RICE technique. 09/26/23: Some mornings has stiffness in R shdr when waking but resovles once up walking. Positional traninng given for best R shoulder supported positions. STG Duration 4 wks-10/11/23 (09/26/23: MET GOAL) Curtain Fitter Goal (LTG) Pt will be independent in a self care HEP of R shoulder/ scapula strengthening exercises and neck/R shoulder ROM ex's. 09/26/23: On 09/10/23 HEP of: Scap retract/depression & TB shdr ER/IR. Issued Lev 2 TB. On 09/12/23 HEP: C/S AROM stretching. On 09/20/23: HEP of Sidelying IR AROM, seated body over UE PROM ER and seated AROM ER 10/18/23: progressing wall ball , stand abd ER /c TB, PRone Ts wt and Ys AROM. 10/25/23: supine tball D2 flexion & HABD AROM>5# DB, stand TB Y off wall. 11/14/23: HEP: Doorway pec stretch & throw training/ strengthening, IR stretch, lat pull down standing w/ alternative of supine positioning. 12/10/23: added weight to open book and shld ABD on side tiring, cued scap set retraction/depression and humeral ER for reduction to no shld tendon pop feeling. LTG Duration 8 wks-12/27/23 (12/27/23: MET GOAL) Assessment Summary Assessment Pt is a 58 y/o initially w/end range R shoulder impingement w/pn in anter brachium; scapular dysfunction most notably R lower trap/Rhomboid major. He attends today with reports fo no R shoulder pain for the past couple weeks, but hasn't been doing much because on vacation. His R shoulder AROM & PROM appear normal and strength is normal except for slight weakness with ER, as also noted to have slight tightness with IR and good SHR except at ~60 deg's AB during movement flex to neutra. Today he shows good tolerance and understanding of pec stretch in doorway and understanding of doing self longterm exercises. The pt is ready for discharge to his HEP and pt feels ready for DC. Physical Therapy Plan Discharge Physical Therapy Discharge Reasons Goals Met Discharge Comments Pt did very well in physical therapy. Thank you for your referral.
== END 2024-01-10 10:38 | disposition home or self-care (01) ==
LOC: PHYS 08:15
PROVIDERS: Family Provider Family Medicine; PCP Family Medicine; Referring Provider Family Medicine; Visit Provider Family Medicine
DX: S46.911D Strain of unspecified muscle, fascia and tendon at shoulder and upper arm level, right arm, subsequent encounter (principal); Y99.0 Civilian activity done for income or pay; M75.41 Impingement syndrome of right shoulder
CPT/HCPCS: 97035; 97110; 97140; 97162; 97530; 97535

== ENCOUNTER → 2025-02-19 16:01 | Outpatient (CLI) | payer OTHER, SELFPAY ==
--- NOTE | 2025-03-11 15:44 | DIAB.MNT ---
Initial Diabetes Medical Nutrition Therapy Assessment Name: Alex Romero (Albaro) Date: 02/19/25 Time: 4-5p Dx: Type II Diabetes Provider: Jorge Albaro presents for initial DM visit virtually using Portal. Reports FH of Dm with both parents. Recent HgA1c of 9.3% 12/2024. States this was an unexpected diagnosis. Taking Metformin 500mg BID. Not taking Jardiance. Does not have SMBG supplies to check BG. Wants to do some meal planning with his . Endorses wt loss since December (was 224#), intentional from diet changes/ smaller portions. Diet Recall: 6am: coffee with unsweet creamer, bowl of cheerios x 1.5c with milk OR 2 waffles with butter, cinnamon, sugar 12p: sandwich +/- chips 6p: 1.5c lasagna with salad OR chx with 2c rice and 1c corn or green beans OR fried shrimp with mozzarella sticks and taquitos 745p: 2 pb cups +/-m 10oz milk water 48oz coffee 1-2c soda 2x per week x 12oz Anthropometrics: Ht: 5 Wt: 214# reported 02/2025 Weight history: Physical Activity: movement at work, but no program. Works on weekends for 's company. Limited time is a barrier per report. Self-Monitoring Blood Glucose: none Date Pre Post Pre Post Pre Post HS Diabetes Medications: 500mg Metformin BID 25mg Jardiance --- not taking Pertinent Labs: HgA1c: 9.3% 12/2024 Past Medical History: (Last Updated 02/22/25 @ 17:39 by Matt Patel, ) Adhesive capsulitis Cardiovascular risk factor Hyperglycemia Hyperlipidemia Strain of tendon of right rotator cuff Type 2 diabetes mellitus Well adult exam Nutrition Rx: Carbohydrates: Meal:45-60g Snack:15-30g Nutrition Diagnosis: - Excessive CHO intake r/t nutrition knowledge deficit aeb diet recall - Self monitoring deficit r/t no supplies and knowledge deficit aeb pt report Intervention: This participant was very receptive. Provided appropriate educational handouts. Discussed the following topics: Completed intake assessment. Pathophysiology of T2DM HgA1c, its correlation to blood glucose numbers, and rationale for goal Importance of self-monitoring, how often, and when to check. Suggested checking at different times to evaluate meals Plate Method, impact of macronutrients on blood sugar, meal timing, carbohydrate counting, pairing macronutrients and spreading out carbohydrates for better blood glucose management Recommended servings for carbohydrates at meals and snacks Heart health nutrition Brainstormed appropriate meal /snack ideas based on food preferences Role of physical activity Medication management in brief Handouts: SMBG checking and plate method / CHO counting placemat Created SMART goals for patient self-care and success. 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
== END ==
LOC: DIET 16:02
PROVIDERS: Family Provider Family Medicine; PCP Family Medicine; Referring Provider Family Medicine
DX: E11.9 Type 2 diabetes mellitus without complications (principal); Z71.3 Dietary counseling and surveillance; Z79.84 Long term (current) use of oral hypoglycemic drugs
CPT/HCPCS: 97802

== ENCOUNTER → 2025-03-20 07:57 | Outpatient (CLI) | payer OTHER, SELFPAY ==
[2025-03-20 09:01] LABS: Hemoglobin A1C% w Est Avg Glu 7.8 % (4.0-6.0)
[2025-03-20 09:04] LABS: Alanine Aminotransferase 15 IU/L (<50); Albumin 4.3 g/dL (3.5-5.0); Albumin Globulin Ratio 1.4 (1.0-2.8); Alkaline Phosphatase 63 U/L (38-126); Blood Urea Nitrogen 20 mg/dL (9-20); Calcium 9.2 mg/dL (8.4-10.2); Carbon Dioxide 22 mmol/L (22-32); Chloride 105 mmol/L (98-107); Cholesterol 175 mg/dL (140-199); Estimated Glomerular Filt Rate > 60 mL/min (>60); Globulin 3.1 g/dL (1.7-4.1); Glucose 122 mg/dL (70-99); HDL Cholesterol 50 mg/dL (40-60); HEMOLYSIS < 15 (0-50); Potassium 4.3 mmol/L (3.4-5.1); Sodium 138 mmol/L (137-145); Total Protein 7.4 g/dL (6.3-8.2); Triglycerides 80 mg/dL (35-150)
== END ==
PROVIDERS: Family Provider Family Medicine; PCP Family Medicine; Referring Provider Family Medicine; Visit Provider Family Medicine
DX: E11.9 Type 2 diabetes mellitus without complications (principal); R73.9 Hyperglycemia, unspecified; E78.2 Mixed hyperlipidemia
CPT/HCPCS: 36415; 80053; 80061; 82172; 83036; 83090

== ENCOUNTER → 2025-05-02 16:01 | Outpatient (CLI) | payer OTHER, SELFPAY ==
[2025-05-02 17:46] LABS: Influenza A - CEPHEID Flu A NEGATIVE (NEGATIVE); Influenza B - CEPHEID Flu B NEGATIVE (NEGATIVE)
[2025-05-02 17:48] LABS: COVID-19 CEPHEID 4-PLEX PCR Negative (Negative)
== END ==
PROVIDERS: Family Provider Family Medicine; PCP Family Medicine; Visit Provider Chiropractor
DX: J02.9 Acute pharyngitis, unspecified (principal)
CPT/HCPCS: 87637

== ENCOUNTER → 2025-05-02 16:16 | Outpatient (CLI) | payer OTHER, SELFPAY ==
--- NOTE | 2025-05-02 16:18 | DI.RAD.S_ITS ---
PROCEDURE: XR KUB INDICATIONS: Rule out obstruction if possible TECHNIQUE: One view of the abdomen acquired. COMPARISON: None. FINDINGS: Surgical changes and devices: None. Bowel: Bowel gas pattern is normal. Soft tissues: No suspicious abdominal calcifications. Visualized solid organ contours appear normal in size. Bones: No suspicious bony lesions. IMPRESSION: Nonobstructive bowel gas pattern. Dictated by: Robert Ziegler M.D. on 05/02/2025 at 15:37 Approved by: Robert Ziegler M.D. on 05/02/2025 at 15:38
== END ==
LOC: RAD 16:17
PROVIDERS: Family Provider Family Medicine; PCP Family Medicine; Referring Provider Chiropractor; Visit Provider Chiropractor
DX: J02.9 Acute pharyngitis, unspecified (principal); R19.7 Diarrhea, unspecified
CPT/HCPCS: 74018; 87637

== ENCOUNTER → 2025-05-04 07:01 | Outpatient (CLI) | payer OTHER, SELFPAY ==
[2025-05-04 08:47] LABS: Clostridium Difficile Tox PCR Positive for C. diff (Negative)
[2025-05-05 14:36] LABS: C difficie Toxins A and B, EIA Negative (Negative)
[2025-05-06 11:08] LABS: Salmonella/Shigella Screen Final report (.)
[2025-05-06 17:39] LABS: E coli Shiga Toxin EIA Negative (Negative)
== END ==
PROVIDERS: Family Provider Family Medicine; PCP Family Medicine; Referring Provider Chiropractor; Visit Provider Chiropractor
DX: R19.7 Diarrhea, unspecified (principal)
CPT/HCPCS: 87045; 87177; 87324; 87329; 87493